=== PATIENT | male | born 1970 | race African-American/Black ===

== ENCOUNTER 2016-11-06 02:33 | Emergency (ER) | payer SELFPAY ==
[~2016-11-06 02:33] MED LIST: GLUCOMTESTSTRIPS XX; LANTUS2P SC; OXYC10TA8 PO; PROT40TA PO; TRAV0.00 EACH EYE; Z.0.LANCETS XX
[2016-11-06 02:41] VITALS: BP 148/92; PULSE 108; RESP 24; O2SAT 96
== END 2016-11-06 03:22 | disposition left against medical advice (07) ==
LOC: NED 02:33
DX: R10.9 Unspecified abdominal pain (principal)
CPT/HCPCS: 99281

== ENCOUNTER 2017-01-10 08:43 | Emergency (ER) | payer SELFPAY ==
[~2017-01-10] VITALS: Ht 157.5 cm; Wt 68.0 kg
[2017-01-10 08:46] VITALS: BP 185/113; PULSE 122; RESP 28; TEMP 98.2; O2SAT 99
[2017-01-10 08:54] VITALS: BP 194/103; PULSE 108; RESP 36; TEMP 98.8; O2SAT 98
[2017-01-10] MEDS ORDERED: INSU1INJ18 SQ (09:05)
[2017-01-10] MEDS ORDERED: PROT40TA PO (09:07)
[2017-01-10] MEDS: LORazepam 2 MG/ML VIAL IV PUSH ONE ×2 (09:30→09:45)
[2017-01-10] MEDS: SODIUM CHLORID 0.9% 500 ML INJ 500 ML IV ONE ×2 (09:30→09:45)
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
[2017-01-10 10:26] LABS: AUTOMATED NEUTROPHIL # 6.3 TH/MM3 (1.8-7.7); BASOPHIL % 0.4 % (0.0-2.0); EOSINOPHIL # 0.1 TH/MM3 (0-0.4); EOSINOPHIL % 1.6 % (0.0-4.0); HEMATOCRIT 46.8 % (39.0-51.0); HEMO FLAGS DIFF FINAL; LYMPH % 19.8 % (9.0-44.0); LYMPHOCYTE # 1.8 TH/MM3 (1.0-4.8); MEAN CELL VOLUME 96.3 FL (80.0-100.0); MEAN CORPUSCULAR HEMOGLOBIN 32.1 PG (27.0-34.0); MEAN CORPUSCULAR HGB CONC 33.4 % (32.0-36.0); MONO % 7.1 % (0.0-8.0); NEUT % 71.1 % (16.0-70.0); PLATELET COUNT 167 TH/MM3 (150-450); RED BLOOD COUNT 4.86 MIL/MM3 (4.50-5.90); RED CELL DISTRIBUTION WIDTH 13.3 % (11.6-17.2); WHITE BLOOD COUNT 8.9 TH/MM3 (4.0-11.0)
[2017-01-10] MEDS ORDERED: LORazepam 2 MG/ML VIAL IV PUSH ONE (10:45)
[2017-01-10 10:52] LABS: ALKALINE PHOSPHATASE 108 U/L (45-117); ALT (GPT) 45 U/L (12-78); ANION GAP 9 MEQ/L (5-15); AST (GOT) 53 U/L (15-37); BICARBONATE 24.8 MEQ/L (21.0-32.0); BLOOD UREA NITROGEN 12 MG/DL (7-18); CHLORIDE 106 MEQ/L (98-107); GLOMERULAR FILTRATION RATE 94 ML/MIN (>89); SODIUM (NA) 140 MEQ/L (136-145); TOTAL BILIRUBIN ADULT 0.6 MG/DL (0.2-1.0)
[2017-01-10 10:53] LABS: POTASSIUM 4.9 MEQ/L (3.5-5.1)
[2017-01-10] MEDS ORDERED: ACETAMINOPHEN/HYDROcodone 325 MG/5 MG TAB PO ONE (11:15)
== END 2017-01-10 14:14 | disposition home or self-care (01) ==
LOC: NEPC 08:43
DX: F41.0 Panic disorder [episodic paroxysmal anxiety] (principal); G89.29 Other chronic pain; M54.5 Low back pain; Z98.1 Arthrodesis status; E11.9 Type 2 diabetes mellitus without complications; I10 Essential (primary) hypertension; Z72.0 Tobacco use
CPT/HCPCS: 80053; 83690; 85025; 96374; 96376; 99283; J2060; J7040

== ENCOUNTER 2017-03-03 11:00 | Inpatient (IN) | payer SELFPAY ==
[~2017-03-03] VITALS: Ht 180.3 cm; Wt 70.0 kg
[~2017-03-03 11:00] MED LIST changes: +INSU1INJ18 SQ; -LANTUS2P SC; -OXYC10TA8 PO
[2017-03-03 11:06] VITALS: BP 168/72; PULSE 110; RESP 28; TEMP 98.8; O2SAT 97
[2017-03-03 11:07] VITALS: PULSE 108; RESP 18; O2SAT 100
[2017-03-03] MEDS ORDERED: SODIUM CHLOR 0.9% 1000 ML INJ 1,000 ML IV SCH (11:07)
[2017-03-03] MEDS ORDERED: OXYC1TAB36 PO (11:13)
[2017-03-03] MEDS ORDERED: SODIUM CHLORIDE 0.9% FLUSH 10 ML FLUSH IV FLUSH PRN ×2 (11:15→17:15)
[2017-03-03] MEDS ORDERED: MORPHINE SULFATE 8 MG/ML INJ IV PUSH ONE ×2 (11:15→17:15)
[2017-03-03] MEDS ORDERED: ONDANSETRON HCL 4 MG/2 ML VIAL IVP ONE (11:15)
[2017-03-03 11:34] LABS: BLOOD GAS VENOUS BASE EXCESS -0.4 mmol/L (-2-2); BLOOD GAS VENOUS HCO3 24 mmol/L (22-26); BLOOD GAS VENOUS O2 CONTENT 12.2 Vol % (9.0-17.0); BLOOD GAS VENOUS O2 HGB SAT 60 % (70-76); BLOOD GAS VENOUS PCO2 45 mmHg (44-48); BLOOD GAS VENOUS PO2 33 mmHg (35-40); BLOOD GAS VENOUS pH 7.36 (7.360-7.400); CRITICAL VALUE NO; DRAW SITE RN; FIO2 21 %; STAT NO; TEMP CORR TO 98.6
[2017-03-03 11:54] LABS: AUTOMATED NEUTROPHIL # 7.5 TH/MM3 (1.8-7.7); BASOPHIL % 0.4 % (0.0-2.0); HEMO FLAGS DIFF FINAL; LYMPH % 13.9 % (9.0-44.0); LYMPHOCYTE # 1.3 TH/MM3 (1.0-4.8); MEAN CELL VOLUME 95.3 FL (80.0-100.0); MEAN CORPUSCULAR HEMOGLOBIN 32.8 PG (27.0-34.0); MEAN CORPUSCULAR HGB CONC 34.4 % (32.0-36.0); MONO % 5.3 % (0.0-8.0); NEUT % 80.4 % (16.0-70.0); PLATELET COUNT 171 TH/MM3 (150-450); RED BLOOD COUNT 4.41 MIL/MM3 (4.50-5.90); RED CELL DISTRIBUTION WIDTH 13.2 % (11.6-17.2); WHITE BLOOD COUNT 9.3 TH/MM3 (4.0-11.0)
--- NOTE | 2017-03-03 12:00 | PD ---
HPI Chief Complaint: Abdominal Pain Time Seen by Provider: 11:07 Travel History International Travel<30 days: No Contact w/Intl Traveler<30days: No Traveled to known affect area: No History of Present Illness HPI Mr. Shelby is a 47-year-old male with a history of chronic back pain chronic pancreatitis and diabetes presents emergency Department with epigastric pain onset 2 days ago gradually worsening associated with some nausea without vomiting. Patient states his sugars been running approximately 250. He has not tried anything prior to arrival. He states he thinks his pancreatitis is flaring up on him. Denies any diarrhea or constipation. States the pain is been nature. He states that the pain in the front does not radiate to his back and causing his chronic back pain to flare up which is causing him to have an anxiety attack. PFSH Past Medical History Anxiety: Yes Cancer: No Cardiovascular Problems: No Diabetes: Yes Patient Takes Glucophage: No Diminished Hearing: No GERD: Yes Glaucoma: Yes Genitourinary: Yes (not emptying bladder AT TIMES) Headaches: Yes Hypertension: Yes Inguinal Hernia: Yes Insomnia: Yes Musculoskeletal: Yes (herniated disk) Respiratory: No Immunizations Current: Yes Pancreatitis: Yes Past Surgical History Abdominal Surgery: Yes (hiatal hernia) Appendectomy: Yes Other Surgery: Yes (pylenitol cyst removal) Social History Alcohol Use: Yes Tobacco Use: Yes (PACK A DAY ) Substance Use: Yes (Marijuana several times per week) Allergies-Medications (Allergen,Severity, Reaction): Coded Allergies: Penicillin (Verified Allergy, Severe, Anaphylaxis, 03/04/17) Phenergan (Verified Allergy, Severe, Anaphylaxis, 03/04/17) Reglan (Verified Allergy, Severe, Anaphylaxis, 03/04/17) Reported Meds & Prescriptions Reported Meds & Active Scripts Active Reported Oxycodone-Acetaminophen 10-325 mg Tab 1 Tab PO Q4H PRN Protonix (Pantoprazole Sodium) 40 Mg Tab 40 Mg PO DAILY PRN Basaglar Kwikpen (Insulin Glargine) 100 Unit/Ml Pen 2 Units SQ DAILY Review of Systems Except as stated in HPI: all other systems reviewed are Neg Physical Exam Narrative GENERAL: [Well-developed well-nourished, hunched over in a stretcher and appears uncomfortable. SKIN: Focused skin assessment warm/dry. HEAD: Atraumatic. Normocephalic. EYES: Pupils equal and round. No scleral icterus. No injection or drainage. ENT: No nasal bleeding or discharge. Mucous membranes pink and moist. NECK: Trachea midline. No JVD. CARDIOVASCULAR: Regular rate and rhythm. No murmur appreciated. RESPIRATORY: No accessory muscle use. Clear to auscultation. Breath sounds equal bilaterally. GASTROINTESTINAL: Abdomen soft, tenderness epigastric area, nondistended. Hepatic and splenic margins not palpable. MUSCULOSKELETAL: No obvious deformities. No clubbing. No cyanosis. No edema. NEUROLOGICAL: Awake and alert. No obvious cranial nerve deficits. Motor grossly within normal limits. Normal speech. PSYCHIATRIC: Appropriate mood and affect; insight and judgment normal. Data Data Last Documented VS Vital Signs Date Time Temp Pulse Resp B/P Pulse Ox O2 Delivery O2 Flow Rate FiO2 03/03/17 12:01 18 03/03/17 11:07 108 100 03/03/17 11:06 98.8 Room Air Orders Complete Blood Count With Diff (03/03/17 11:07) Comprehensive Metabolic Panel (03/03/17 11:07) Lipase (03/03/17 11:07) Lactic Acid (03/03/17 11:07) Iv Access Insert/Monitor (03/03/17 11:07) Ecg Monitoring (03/03/17 11:07) Oximetry (03/03/17 11:07) Ondansetron Inj (Zofran Inj) (03/03/17 11:15) Sodium Chlor 0.9% 1000 Ml Inj (Ns 1000 M (03/03/17 11:07) Sodium Chloride 0.9% Flush (Ns Flush) (03/03/17 11:15) Morphine Inj (Morphine Inj) (03/03/17 11:15) Blood Gas Venous (Vbg) (03/03/17 11:07) Troponin I (03/03/17 11:07) Ct Abd/Pel W Iv Contrast(Rout) (03/03/17 ) Iohexol 350 Inj (Omnipaque 350 Inj) (03/03/17 14:35) Oxycodone-Acetamin 5-325 Mg (Percocet (03/03/17 15:00) Admit Order (Ed Use Only) (03/03/17 ) Morphine Inj (Morphine Inj) (03/03/17 17:15) Labs Laboratory Tests Test 03/03/17 03/03/17 03/03/17 11:23 11:43 11:46 Blood Gas Puncture Site RN Blood Gas Patient Temperature 98.6 Venous Blood pH 7.36 Venous Blood Partial Pressure 45 mmHg CO2 Venous Blood Partial Pressure 33 mmHg O2 Venous Blood HCO3 24 mmol/L Venous Blood Oxygen Saturation 60 % Venous Blood Oxygen Content 12.2 Vol % Venous Blood Base Excess -0.4 mmol/L Blood Gas Inspired Oxygen 21 % Sodium Level 137 MEQ/L Potassium Level 3.9 MEQ/L Chloride Level 101 MEQ/L Carbon Dioxide Level 25.6 MEQ/L Anion Gap 10 MEQ/L Blood Urea Nitrogen 21 MG/DL Creatinine 1.14 MG/DL Estimat Glomerular Filtration 83 ML/MIN Rate Random Glucose 114 MG/DL Calcium Level 9.5 MG/DL Total Bilirubin 0.7 MG/DL Aspartate Amino Transf 57 U/L (AST/SGOT) Alanine Aminotransferase 36 U/L (ALT/SGPT) Alkaline Phosphatase 108 U/L Troponin I LESS THAN 0.02 NG/ML Total Protein 8.0 GM/DL Albumin 4.6 GM/DL Lipase 264 U/L White Blood Count 9.3 TH/MM3 Red Blood Count 4.41 MIL/MM3 Hemoglobin 14.4 GM/DL Hematocrit 42.0 % Mean Corpuscular Volume 95.3 FL Mean Corpuscular Hemoglobin 32.8 PG Mean Corpuscular Hemoglobin 34.4 % Concent Red Cell Distribution Width 13.2 % Platelet Count 171 TH/MM3 Mean Platelet Volume 8.6 FL Neutrophils (%) (Auto) 80.4 % Lymphocytes (%) (Auto) 13.9 % Monocytes (%) (Auto) 5.3 % Eosinophils (%) (Auto) 0.0 % Basophils (%) (Auto) 0.4 % Neutrophils # (Auto) 7.5 TH/MM3 Lymphocytes # (Auto) 1.3 TH/MM3 Monocytes # (Auto) 0.5 TH/MM3 Eosinophils # (Auto) 0.0 TH/MM3 Basophils # (Auto) 0.0 TH/MM3 CBC Comment DIFF FINAL Differential Comment Lactic Acid Level 1.6 mmol/L [facility] Medical Decision Making Medical Screen Exam Complete: Yes Emergency Medical Condition: Yes Differential Diagnosis Pancreatitis, chronic pancreatitis, cholecystitis seems unlikely, acute abdomen highly unlikely, dehydration. Narrative Course Patient 47-year-old male presents emergency room with a history of chronic pancreatitis. Patient's initial labs are reassuring. He was given morphine IV. On revisit he is sleeping soundly arousable and then complains of increased abdominal pain. He was ordered Percocet and took this willingly but still stated he was in pain. CAT scan was pursued and showed Last 24 hours Impressions Abdomen/Pelvis CT 03/03/17 0000 Signed Impressions: Service Date/Time: Friday, March 03, 2017 13:31 - CONCLUSION: 1. The pancreas is stable in appearance with the pancreatic duct at the upper limits of normal. There is no focal mass or inflammatory change. 2. The gallbladder appears unremarkable with no definite gallstones. 3. The bowel gas pattern appears unremarkable. No oral contrast was given limiting the sensitivity. 4. Mild to moderate hepatic steatosis. Quinn Fraire MD Patient was given an additional dose of morphine and recommended for admission for intractable abdominal pain and he is agreeable. Discussed with Dr. Yan for admission who was also agreeable. Diagnosis Primary Impression: Epigastric pain Referrals: Skyla Ovalle MD Disposition: DISCHARGE HOME Condition: Stable Joshua Vega MD March 03, 2017 12:00
[2017-03-03 12:17] LABS: ALT (GPT) 36 U/L (12-78); ANION GAP 10 MEQ/L (5-15); AST (GOT) 57 U/L (15-37); BICARBONATE 25.6 MEQ/L (21.0-32.0); BLOOD UREA NITROGEN 21 MG/DL (7-18); CHLORIDE 101 MEQ/L (98-107); GLOMERULAR FILTRATION RATE 83 ML/MIN (>89); POTASSIUM 3.9 MEQ/L (3.5-5.1); SODIUM (NA) 137 MEQ/L (136-145)
[2017-03-03 12:21] LABS: ALKALINE PHOSPHATASE 108 U/L (45-117); TOTAL BILIRUBIN ADULT 0.7 MG/DL (0.2-1.0)
--- NOTE | 2017-03-03 13:45 | RADRPT ---
EXAM DATE/TIME: 03/03/2017 13:31 1 [place] COMPARISON: CT ABDOMEN & PELVIS W/O CONTRAST, June 19, 2016, 17:05. CT ABDOMEN & PELVIS W CONTRAST, January 05, 2014, 10:36. INDICATIONS : Abdomen pain; posterior. IV CONTRAST: 100 cc Omnipaque 350 (iohexol) IV ORAL CONTRAST: No oral contrast ingested. RADIATION DOSE: 9.96 CTDIvol (mGy) MEDICAL HISTORY : Pancreatitis. SURGICAL HISTORY : Appendectomy. ENCOUNTER: Initial ACUITY: 1 day PAIN SCALE: 5/10 LOCATION: Bilateral abdomen. TECHNIQUE: Volumetric scanning of the abdomen and pelvis was performed. Using automated exposure control and ad justment of the mA and/or kV according to patient size, radiation dose was kept as low as reasonably achievable to obtain optimal diagnostic quality images. FINDINGS: LOWER LUNGS: The visualized lower lungs are clear. LIVER: Homogeneous density without lesion. There is no dilation of the biliary tree. The gallbladder appear s unremarkable with no definite calcified gallstones. There is no wall thickening or inflammatory ariane nge. There is mild to moderate hepatic steatosis. The gallbladder is unremarkable in appearance. SPLEEN: Normal size without lesion. PANCREAS: Normal in size and shape. The pancreatic duct is at the upper limits of normal in size measuring up t o 3 mm area there no calcifications or inflammatory change. KIDNEYS: Normal in size and shape. There is no mass, stone or hydronephrosis. ADRENAL GLANDS: Within normal limits. VASCULAR: There is no aortic aneurysm. BOWEL/MESENTERY: The stomach, small bowel, and colon demonstrate no acute abnormality. There is no free intraperitone al air or fluid. ABDOMINAL WALL: Within normal limits. RETROPERITONEUM: There is no lymphadenopathy. BLADDER: No wall thickening or mass. REPRODUCTIVE: Within normal limits. INGUINAL: There is no lymphadenopathy or hernia. MUSCULOSKELETAL: Within normal limits for patient age. CONCLUSION: 1. The pancreas is stable in appearance with the pancreatic duct at the upper limits of normal. There is no focal mass or inflammatory change. 2. The gallbladder appears unremarkable with no definite gallstones. 3. The bowel gas pattern appears unremarkable. No oral contrast was given limiting the sensitivity. 4. Mild to moderate hepatic steatosis. Quinn Fraire MD on March 03, 2017 at 13:40 Board Certified Radiologist. This report was verified electronically.
[2017-03-03] MEDS ORDERED: IOHEXOL 350 MG/ML 10 ML VIAL (for RAD DIAG) IV ONE (14:35)
[2017-03-03] MEDS ORDERED: oxyCODONE/ACETAMINOPHEN 5 MG/325 MG TAB PO ONE (15:00)
[2017-03-03] MEDS ORDERED: HYDROmorphone HCL PF 1 MG/ML VIAL IV PRN (17:15)
[2017-03-03] MEDS ORDERED: ACETAMINOPHEN 325 MG TAB PO PRN ×2 (17:15)
[2017-03-03] MEDS ORDERED: ONDANSETRON HCL 4 MG/2 ML VIAL IVP PRN (17:15)
[2017-03-03] MEDS ORDERED: PANTOPRAZOLE SOD 40 MG DELAYED RELEASE TAB PO PRN (17:15)
[2017-03-03] MEDS ORDERED: NALOXONE HCL 0.4 MG/ML AMP IV PRN (17:15)
[2017-03-03] MEDS ORDERED: LORazepam 2 MG/ML VIAL IV PUSH PRN (17:30)
[2017-03-03] MEDS: SODIUM CHLOR 0.9% 1000 ML INJ 1,000 ML IV SCH ×2 (17:32→20:04)
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
[2017-03-03] MEDS ORDERED: ENOXAPARIN SODIUM 40 MG/0.4 ML SYRINGE SQ SCH (18:00)
[2017-03-03] MEDS ORDERED: DEXTROSE 50% IN WATER 50 ML VIAL(D50) IV PUSH PRN (18:15)
[2017-03-03] MEDS ORDERED: GLUCAGON 1 MG/ML VIAL OTHER PRN (18:15)
[2017-03-03 19:54] VITALS: BP 133/69; PULSE 74; RESP 18; TEMP 98.1; O2SAT 98
[2017-03-03] MEDS: SODIUM CHLORIDE 0.9% FLUSH 10 ML FLUSH IV FLUSH SCH (20:04)
[2017-03-03] MEDS: HYDROmorphone HCL PF 1 MG/ML VIAL IV PRN ×2 (20:04→23:48)
[2017-03-03] MEDS: INSULIN ASPART SUPPLEMENTAL SCALE SQ SCH (21:00)
[2017-03-03 23:57] VITALS: BP 135/77; PULSE 64; RESP 18; TEMP 98.7; O2SAT 99
[2017-03-04] MEDS: SODIUM CHLOR 0.9% 1000 ML INJ 1,000 ML IV SCH (02:57)
[2017-03-04] MEDS: HYDROmorphone HCL PF 1 MG/ML VIAL IV PRN ×2 (02:57→08:23)
[2017-03-04 03:00] VITALS: BP 123/80; PULSE 64; RESP 18; TEMP 98.7; O2SAT 98
[2017-03-04] MEDS: INSULIN ASPART SUPPLEMENTAL SCALE SQ SCH (05:53)
[2017-03-04 07:11] LABS: AUTOMATED NEUTROPHIL # 2.9 TH/MM3 (1.8-7.7); BASOPHIL % 0.3 % (0.0-2.0); EOSINOPHIL % 0.8 % (0.0-4.0); HEMATOCRIT 38.8 % (39.0-51.0); HEMO FLAGS DIFF FINAL; LYMPH % 37.4 % (9.0-44.0); MEAN CELL VOLUME 95.9 FL (80.0-100.0); MEAN CORPUSCULAR HEMOGLOBIN 31.5 PG (27.0-34.0); MEAN CORPUSCULAR HGB CONC 32.9 % (32.0-36.0); MONO % 8.4 % (0.0-8.0); NEUT % 53.1 % (16.0-70.0); PLATELET COUNT 134 TH/MM3 (150-450); RED BLOOD COUNT 4.04 MIL/MM3 (4.50-5.90); RED CELL DISTRIBUTION WIDTH 13.2 % (11.6-17.2); WHITE BLOOD COUNT 5.4 TH/MM3 (4.0-11.0)
[2017-03-04 07:25] LABS: RHEUMATOID FACTOR TRIGGER LESS THAN 10.0 IU/ML (0.0-14.9)
[2017-03-04 07:34] LABS: ALKALINE PHOSPHATASE 80 U/L (45-117); ALT (GPT) 28 U/L (12-78); ANION GAP 6 MEQ/L (5-15); AST (GOT) 44 U/L (15-37); BICARBONATE 27.7 MEQ/L (21.0-32.0); BLOOD UREA NITROGEN 12 MG/DL (7-18); CHLORIDE 104 MEQ/L (98-107); GLOMERULAR FILTRATION RATE 112 ML/MIN (>89); POTASSIUM 3.6 MEQ/L (3.5-5.1); SODIUM (NA) 138 MEQ/L (136-145); TOTAL BILIRUBIN ADULT 0.6 MG/DL (0.2-1.0)
[2017-03-04 07:51] VITALS: BP 142/75; PULSE 53; RESP 18; TEMP 98; O2SAT 98
[2017-03-04 08:53] VITALS: RESP 16
[2017-03-04] MEDS ORDERED: PANTOPRAZOLE SOD 40 MG DELAYED RELEASE TAB PO SCH (09:00)
[2017-03-04] MEDS: SODIUM CHLORIDE 0.9% FLUSH 10 ML FLUSH IV FLUSH SCH (09:00)
--- NOTE | 2017-03-04 10:55 | PD.AMA ---
Against Medical Advice Note Diagnosis: (1) Pancreatitis Discharge Disposition: Against Medical Advice Pt Condition on Discharge: Fair AMA Statement Patient Luis Carlos Shelby has decided to leave the hospital against medical advice. This patient has the capacity to refuse care and understands the risks of leaving, including permanent disability and/or , and has had an opportunity to ask questions about his condition. The patient has been informed that he may return for care at any time, and follow up has been arranged/ advised. Hank Yan MD March 04, 2017 10:55
--- NOTE | 2017-03-04 11:20 | EKG ---
Date Performed: 03/03/2017 Time Performed: 17:09:57 PTAGE: 47 years EKG: ATRIAL FLUTTER/TACHYCARDIA INDETERMINATE AXIS ABNORMAL RHYTHM ECG PREVIOUS TRACING : 10/15/2016 05.08 DOCTOR: Bulmaro Squires Interpretating Date/Time 03/04/2017 11:16:08
== END 2017-03-04 11:04 | disposition home or self-care (01) | DRG 440 ==
LOC: NEPE 11:00 → NEDA 17:08 → NEPHCDU 19:41 → OBSVTOIN 03-04 08:20
PROVIDERS: ADMIT Hospitalist; ATTEND Hospitalist
DX: K85.90 Acute pancreatitis without necrosis or infection, unspecified (principal); K86.1 Other chronic pancreatitis; M41.9 Scoliosis, unspecified; I10 Essential (primary) hypertension; F17.210 Nicotine dependence, cigarettes, uncomplicated; G47.00 Insomnia, unspecified; K40.90 Unilateral inguinal hernia, without obstruction or gangrene, not specified as recurrent; H40.9 Unspecified glaucoma; K21.9 Gastro-esophageal reflux disease without esophagitis; E11.9 Type 2 diabetes mellitus without complications; Z79.4 Long term (current) use of insulin; Z88.0 Allergy status to penicillin; Z88.8 Allergy status to other drugs, medicaments and biological substances; F41.1 Generalized anxiety disorder; G89.29 Other chronic pain; E78.5 Hyperlipidemia, unspecified; F41.0 Panic disorder [episodic paroxysmal anxiety]; F12.90 Cannabis use, unspecified, uncomplicated; Z82.49 Family history of ischemic heart disease and other diseases of the circulatory system; Z82.3 Family history of stroke; Z83.3 Family history of diabetes mellitus
CPT/HCPCS: 74177; 80053; 82805; 82948; 83605; 83690; 84484; 85025; 86038; 86430; 93005; 96374; 96375; G0378; J1170; J2270; J2405; J7030; Q9967

== ENCOUNTER 2017-03-04 12:40 | Inpatient (IN) | payer SELFPAY ==
[~2017-03-04] VITALS: Ht 177.8 cm; Wt 67.6 kg
[~2017-03-04 12:40] MED LIST changes: -GLUCOMTESTSTRIPS XX; +OXYC1TAB36 PO; -TRAV0.00 EACH EYE; -Z.0.LANCETS XX
[2017-03-04 12:41] VITALS: BP 169/103; PULSE 97; RESP 20; TEMP 97.8; O2SAT 99
[2017-03-04] MEDS ORDERED: ONDANSETRON HCL 4 MG/2 ML VIAL IVP ONE (13:00)
[2017-03-04] MEDS ORDERED: MORPHINE SULFATE 4 MG/ML INJ IV PUSH ONE (13:00)
[2017-03-04] MEDS ORDERED: SODIUM CHLORIDE 0.9% FLUSH 10 ML FLUSH IV FLUSH PRN ×2 (13:00→13:15)
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
[2017-03-04 13:10] VITALS: RESP 19; O2SAT 98
[2017-03-04] MEDS ORDERED: ACETAMINOPHEN 325 MG TAB PO PRN ×2 (13:15)
[2017-03-04] MEDS ORDERED: HYDROmorphone HCL PF 1 MG/ML VIAL IV PRN (13:15)
[2017-03-04] MEDS ORDERED: NALOXONE HCL 0.4 MG/ML AMP IV PRN (13:15)
[2017-03-04] MEDS ORDERED: LORazepam 2 MG/ML VIAL IV PUSH PRN (13:30)
[2017-03-04] MEDS: SODIUM CHLOR 0.9% 1000 ML INJ 1,000 ML IV SCH ×3 (13:41→23:47)
[2017-03-04] MEDS: ENOXAPARIN SODIUM 40 MG/0.4 ML SYRINGE SQ SCH (13:42)
[2017-03-04] MEDS ORDERED: ONDANSETRON HCL 4 MG/2 ML VIAL IVP PRN (14:00)
[2017-03-04] MEDS ORDERED: DIAZEPAM 5 MG TAB PO PRN (15:00)
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
[2017-03-04] MEDS ORDERED: GLUCAGON 1 MG/ML VIAL OTHER PRN (15:45)
[2017-03-04] MEDS ORDERED: DEXTROSE 50% IN WATER 50 ML VIAL(D50) IV PUSH PRN (15:45)
[2017-03-04 16:00] VITALS: BP 129/80; PULSE 62; RESP 16; TEMP 98.7; O2SAT 95
[2017-03-04] MEDS: INSULIN ASPART SUPPLEMENTAL SCALE SQ SCH ×2 (16:00→20:01)
[2017-03-04] MEDS: HYDROmorphone HCL PF 1 MG/ML VIAL IV PRN ×3 (16:27→23:47)
[2017-03-04 20:00] VITALS: BP 156/88; PULSE 66; RESP 20; TEMP 98.8; O2SAT 98
[2017-03-04] MEDS: SODIUM CHLORIDE 0.9% FLUSH 10 ML FLUSH IV FLUSH SCH (20:01)
[2017-03-05] MEDS: HYDROmorphone HCL PF 1 MG/ML VIAL IV PRN ×6 (03:37→23:11)
[2017-03-05 06:06] LABS: ALKALINE PHOSPHATASE 76 U/L (45-117); ALT (GPT) 29 U/L (12-78); ANION GAP 7 MEQ/L (5-15); AST (GOT) 40 U/L (15-37); BICARBONATE 26.8 MEQ/L (21.0-32.0); BLOOD UREA NITROGEN 7 MG/DL (7-18); CHLORIDE 105 MEQ/L (98-107); GLOMERULAR FILTRATION RATE 119 ML/MIN (>89); POTASSIUM 3.5 MEQ/L (3.5-5.1); SODIUM (NA) 139 MEQ/L (136-145); TOTAL BILIRUBIN ADULT 0.5 MG/DL (0.2-1.0)
[2017-03-05] MEDS: INSULIN ASPART SUPPLEMENTAL SCALE SQ SCH ×4 (06:17→19:56)
[2017-03-05 07:04] LABS: AUTOMATED NEUTROPHIL # 2.2 TH/MM3 (1.8-7.7); BASOPHIL % 0.9 % (0.0-2.0); EOSINOPHIL # 0.1 TH/MM3 (0-0.4); EOSINOPHIL % 1.1 % (0.0-4.0); HEMATOCRIT 38.8 % (39.0-51.0); HEMO FLAGS DIFF FINAL; LYMPH % 40.2 % (9.0-44.0); LYMPHOCYTE # 1.9 TH/MM3 (1.0-4.8); MEAN CELL VOLUME 95.7 FL (80.0-100.0); MEAN CORPUSCULAR HEMOGLOBIN 31.7 PG (27.0-34.0); MEAN CORPUSCULAR HGB CONC 33.1 % (32.0-36.0); MONO % 9.9 % (0.0-8.0); NEUT % 47.9 % (16.0-70.0); PLATELET COUNT 117 TH/MM3 (150-450); RED BLOOD COUNT 4.06 MIL/MM3 (4.50-5.90); RED CELL DISTRIBUTION WIDTH 13.1 % (11.6-17.2); WHITE BLOOD COUNT 4.7 TH/MM3 (4.0-11.0)
[2017-03-05 08:00] VITALS: BP 139/67; PULSE 69; RESP 16; TEMP 96.9; O2SAT 95
[2017-03-05] MEDS: SODIUM CHLOR 0.9% 1000 ML INJ 1,000 ML IV SCH ×2 (09:55→21:23)
[2017-03-05] MEDS: SODIUM CHLORIDE 0.9% FLUSH 10 ML FLUSH IV FLUSH SCH ×2 (09:56→19:56)
--- NOTE | 2017-03-05 10:05 | HHI.PR ---
Subjective Remarks Follow-up acute on chronic pancreatitis 03/05/17-patient seen and examined, continue to complain of abdominal mid epigastric pain with radiation to his back. No nausea and vomiting. Currently afebrile Objective Vitals Vital Signs Date Time Temp Pulse Resp B/P Pulse Ox O2 Delivery O2 Flow Rate FiO2 03/05/17 08:00 96.9 69 16 139/67 95 03/04/17 20:00 98.8 66 20 156/88 98 03/04/17 16:00 98.7 62 16 129/80 95 03/04/17 13:10 19 98 Room Air 03/04/17 12:41 97.8 97 20 169/103 99 I/O 03/04/17 03/04/17 03/04/17 03/05/17 03/05/17 03/05/17 07:00 15:00 23:00 07:00 15:00 23:00 Intake Total 1283 ml 1254 ml Output Total 500 ml 700 ml Balance 783 ml 554 ml Intake Oral 480 ml 480 ml IV Total 803 ml 774 ml Output Urine Total 500 ml 700 ml # Bowel Movements 0 0 Result Diagram: 03/05/17 0508 03/05/17 0508 Objective Remarks GENERAL: NAD SKIN: Warm and dry. HEAD: Normocephalic. EYES: No scleral icterus. No injection or drainage. NECK: Supple, trachea midline. No JVD or lymphadenopathy. CARDIOVASCULAR: Regular rate and rhythm without murmurs, gallops, or rubs. RESPIRATORY: Breath sounds equal bilaterally. No accessory muscle use. GASTROINTESTINAL: Abdomen soft, mildly tender mid epigastric, nondistended. MUSCULOSKELETAL: No cyanosis, or edema. BACK: Nontender without obvious deformity. No CVA tenderness. A/P Problem List: (1) Acute on chronic pancreatitis ICD Code: K85.90 Status: Acute (2) Diabetes ICD Code: E11.9 Status: Chronic (3) Acute pancreatitis ICD Code: K85.9 Status: Acute (4) Chronic back pain ICD Code: M54.9 Status: Chronic (5) Panic disorder ICD Code: F41.0 Status: Chronic (6) Hyperlipidemia ICD Code: E78.5 Status: Acute (7) Hypertension ICD Code: I10 Status: Acute Assessment and Plan 47-year-old man with Acute on chronic pancreatitis Lipase 1353 (03/04)----->160 (03/05) and monitor lipase level Continue with IV fluid hydration, when necessary pain medication MRCP to rule out annular pancreas Consider HIDA if enzymes do not improve Start pancreatic replacement enzyme and continue with low-fat diet as well as PPI DM2 Continue to hold basal insulin, currently on Insulin Sliding Scale with fingerstick blood glucose monitoring Anxiety PRN Ativan Hyperlipidemia Start Lipitor 10 mg at bedtime Hypertension Start lisinopril 10 mg daily Glaucoma Scoliosis Chronic and continue to monitor Denys Martines MD March 05, 2017 10:05
[2017-03-05] MEDS: LISINOPRIL 10 MG TAB PO SCH (11:31)
[2017-03-05 12:00] VITALS: BP 170/79; PULSE 52; RESP 17; TEMP 97.2; O2SAT 94
--- NOTE | 2017-03-05 13:32 | RADRPT ---
EXAM DATE/TIME: 03/05/2017 12:29 [place] COMPARISON: CT ABDOMEN & PELVIS W CONTRAST, March 03, 2017, 13:31. INDICATIONS : Upper abdominal pain. MEDICAL HISTORY : Hypertension. Diabetes mellitus type 2. SURGICAL HISTORY : Appendectomy. Hernia, lumbar surgery, jugular repair ENCOUNTER: Subsequent ACUITY: 4-6 days PAIN SCORE: 3/10 LOCATION: upper quadrant abdomen TECHNIQUE: Multiplanar, multisequence magnetic resonance imaging of the abdomen was performed. High-resolution 3D dataset was utilized to reconstruct maximum-intensity projection (MIP) images. FINDINGS: INTRAHEPATIC BILE DUCTS: Within normal limits. No significant anatomical variant is present. EXTRAHEPATIC BILE DUCTS: The common bile duct measures 2-3 mm. No stone or filling defect is identified. GALLBLADDER: No stones, wall thickening, or pericholecystic fluid. LIVER: Mild hepatic steatosis. No concerning liver lesion is identified on this non-contrast exam. PANCREAS: The main pancreatic duct is normal in size. There is no significant anatomical variant. Signal inte nsity is within normal limits. No mass is visualized on this non-contrast exam. OTHER: The remaining visualized structures demonstrate no acute abnormality on this non-contrast exam. Extra renal pelvis of the left kidney. CONCLUSION: 1. Mild hepatic steatosis. 2. No intra-or extrahepatic biliary ductal dilatation. 3. No evidence for cholelithiasis. Denys Hernandez MD on March 05, 2017 at 13:23 Board Certified Radiologist. This report was verified electronically.
[2017-03-05] MEDS: ENOXAPARIN SODIUM 40 MG/0.4 ML SYRINGE SQ SCH (15:17)
[2017-03-05] MEDS: LIPASE/PROTEASE/AMYLASE (12,000/38,000/60,000) CAP PO SCH ×2 (15:17→17:47)
[2017-03-05 16:00] VITALS: BP 169/76; PULSE 64; RESP 17; TEMP 97; O2SAT 96
[2017-03-05 20:00] VITALS: BP 162/88; PULSE 61; RESP 18; TEMP 98.7; O2SAT 95
[2017-03-05] MEDS ORDERED: ATORVASTATIN 10 MG TAB PO SCH (21:00)
[2017-03-06] VITALS: BP 123/64; PULSE 71; RESP 18; TEMP 97.3; O2SAT 96
[2017-03-06] MEDS: SODIUM CHLOR 0.9% 1000 ML INJ 1,000 ML IV SCH ×2 (05:00→12:57)
[2017-03-06] MEDS: HYDROmorphone HCL PF 1 MG/ML VIAL IV PRN ×4 (05:10→13:59)
[2017-03-06] MEDS: INSULIN ASPART SUPPLEMENTAL SCALE SQ SCH ×2 (06:08→11:00)
[2017-03-06 08:00] VITALS: BP 132/80; PULSE 81; RESP 18; TEMP 97.3; O2SAT 99
[2017-03-06] MEDS: LIPASE/PROTEASE/AMYLASE (12,000/38,000/60,000) CAP PO SCH ×2 (08:20→12:56)
[2017-03-06] MEDS: LISINOPRIL 10 MG TAB PO SCH (08:20)
[2017-03-06] MEDS: SODIUM CHLORIDE 0.9% FLUSH 10 ML FLUSH IV FLUSH SCH (08:24)
[2017-03-06 12:00] VITALS: BP 144/92; PULSE 85; RESP 19; TEMP 97.2; O2SAT 94
--- NOTE | 2017-03-06 12:47 | HHI.PR ---
Subjective Remarks Follow-up acute on chronic pancreatitis 03/05/17-patient seen and examined, continue to complain of abdominal mid epigastric pain with radiation to his back. No nausea and vomiting. Currently afebrile 03/06/17-patient seen and examined; no abdominal pain; no n/v Objective Vitals Vital Signs Date Time Temp Pulse Resp B/P Pulse Ox O2 Delivery O2 Flow Rate FiO2 03/06/17 12:00 97.2 85 19 144/92 94 03/06/17 08:54 18 03/06/17 08:00 97.3 81 18 132/80 99 03/06/17 00:00 97.3 71 18 123/64 96 03/05/17 20:00 98.7 61 18 162/88 95 03/05/17 16:00 97.0 64 17 169/76 96 I/O 03/05/17 03/05/17 03/05/17 03/06/17 03/06/17 03/06/17 06:59 14:59 22:59 06:59 14:59 22:59 Intake Total 1254 ml 0 ml 1256 ml 775 ml Output Total 700 ml 1200 ml 250 ml Balance 554 ml -1200 ml 1256 ml 525 ml Intake Oral 480 ml 0 ml 240 ml 480 ml IV Total 774 ml 1016 ml 295 ml Output Urine Total 700 ml 1200 ml 250 ml # Voids 1 # Bowel Movements 0 0 0 0 Result Diagram: 03/05/17 0508 03/05/17 0508 Imaging Last Impressions Cholangiopancreatography MRI 03/05/17 0000 Signed Impressions: Service Date/Time: Sunday, March 05, 2017 12:29 - CONCLUSION: 1. Mild hepatic steatosis. 2. No intra-or extrahepatic biliary ductal dilatation. 3. No evidence for cholelithiasis. Denys Hernandez MD Objective Remarks GENERAL: NAD SKIN: Warm and dry. HEAD: Normocephalic. EYES: No scleral icterus. No injection or drainage. NECK: Supple, trachea midline. No JVD or lymphadenopathy. CARDIOVASCULAR: Regular rate and rhythm without murmurs, gallops, or rubs. RESPIRATORY: Breath sounds equal bilaterally. No accessory muscle use. GASTROINTESTINAL: Abdomen soft, mildly tender mid epigastric, nondistended. MUSCULOSKELETAL: No cyanosis, or edema. BACK: Nontender without obvious deformity. No CVA tenderness. Procedures none A/P Problem List: (1) Acute on chronic pancreatitis ICD Code: K85.90 Status: Acute (2) Diabetes ICD Code: E11.9 Status: Chronic (3) Acute pancreatitis ICD Code: K85.9 Status: Acute (4) Chronic back pain ICD Code: M54.9 Status: Chronic (5) Panic disorder ICD Code: F41.0 Status: Chronic (6) Hyperlipidemia ICD Code: E78.5 Status: Acute (7) Hypertension ICD Code: I10 Status: Acute Assessment and Plan 47-year-old man with Acute on chronic pancreatitis Lipase 1353 (03/04)----->160 (03/05) and monitor lipase level Continue with IV fluid hydration, when necessary pain medication MRCP with Mild hepatic steatosis. 2. No intra-or extrahepatic biliary ductal dilatation. 3. No evidence for cholelithiasis. Consider HIDA if enzymes do not improve Continue pancreatic replacement enzyme and continue with low-fat diet as well as PPI DM2 Continue to hold basal insulin, currently on Insulin Sliding Scale with fingerstick blood glucose monitoring Anxiety PRN Ativan Hyperlipidemia Continue Lipitor 10 mg at bedtime Hypertension Continue lisinopril 10 mg daily Glaucoma Scoliosis Chronic and continue to monitor Denys Martines MD March 06, 2017 12:47
[2017-03-06] MEDS ORDERED: LIPI10TA PO (12:49)
[2017-03-06] MEDS ORDERED: CREON12 PO (12:49)
[2017-03-06] MEDS ORDERED: LISI10TA3 PO (12:49)
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
[2017-03-06] MEDS: ENOXAPARIN SODIUM 40 MG/0.4 ML SYRINGE SQ SCH (13:58)
== END 2017-03-06 14:48 | disposition home or self-care (01) | DRG 440 ==
LOC: NEPE 12:40 → NEDA 13:14 → N07A 14:32
PROVIDERS: ADMIT Hospitalist; ATTEND Hospitalist
DX: K85.90 Acute pancreatitis without necrosis or infection, unspecified (principal); M41.9 Scoliosis, unspecified; I10 Essential (primary) hypertension; E11.9 Type 2 diabetes mellitus without complications; K21.9 Gastro-esophageal reflux disease without esophagitis; H40.9 Unspecified glaucoma; G47.00 Insomnia, unspecified; F17.210 Nicotine dependence, cigarettes, uncomplicated; F12.90 Cannabis use, unspecified, uncomplicated; F41.0 Panic disorder [episodic paroxysmal anxiety]; E78.5 Hyperlipidemia, unspecified; K86.1 Other chronic pancreatitis; G89.29 Other chronic pain; Z79.4 Long term (current) use of insulin
CPT/HCPCS: 74181; 76377; 76937; 80053; 82948; 83690; 85025; 96374; J1170; J1650; J1815; J2270; J2405; J7030

== ENCOUNTER 2017-05-13 09:05 | Emergency (ER) | payer SELFPAY ==
[~2017-05-13] VITALS: Ht 175.3 cm; Wt 68.0 kg
[~2017-05-13 09:05] MED LIST changes: +CREON12 PO; +LIPI10TA PO; +LISI10TA3 PO
[2017-05-13 09:07] VITALS: BP 190/99; PULSE 114; RESP 26; TEMP 98; O2SAT 98
[2017-05-13] MEDS ORDERED: LANTUS2P SQ (09:32)
--- NOTE | 2017-05-13 09:38 | PD ---
HPI Chief Complaint: Abdominal Pain Time Seen by Provider: 09:38 Travel History International Travel<30 days: No Contact w/Intl Traveler<30days: No Traveled to known affect area: No History of Present Illness HPI 47-year-old male came to the emergency room with history of abdominal pain and vomiting. He told me "it is his pancreas". Patient says the pain started yesterday. Denied any alcohol. He told me that he does not drink alcohol but he does have history of pancreatitis. He looked uncomfortable. Patient is tachycardic in triage and is tachypneic although the tachypnea seems more like hyperventilation. He was curled up into a position rocking back and forth and occasionally jumping. Upon asking patient said this pain made him do that. Patient denies doing any street drugs. He is on pain medication for his back surgery. PFSH Past Medical History Narrative Medical List of his past medical, surgical, social and family history is reviewed from the nursing note. Anxiety: Yes Cancer: No Cardiovascular Problems: Yes Diabetes: Yes Patient Takes Glucophage: No Diminished Hearing: No GERD: Yes Glaucoma: Yes Genitourinary: No Headaches: Yes Hypertension: Yes Inguinal Hernia: Yes Insomnia: Yes Medical other: Yes (pancreatitis hx) Musculoskeletal: Yes (herniated disk) Respiratory: No Immunizations Current: Yes Pancreatitis: Yes Tetanus Vaccination: > 5 Years Influenza Vaccination: Yes Past Surgical History Abdominal Surgery: Yes (hiatal hernia) Appendectomy: Yes Other Surgery: Yes (pylenitol cyst removal) Social History Alcohol Use: No (pt denies) Tobacco Use: Yes (PACK A DAY ) Substance Use: Yes (weed) Allergies-Medications (Allergen,Severity, Reaction): Coded Allergies: Penicillin (Verified Allergy, Severe, Anaphylaxis, 05/15/17) Phenergan (Verified Allergy, Severe, Anaphylaxis, 05/15/17) Reglan (Verified Allergy, Severe, Anaphylaxis, 05/15/17) Comments List of his allergies reviewed from the nursing note. Reported Meds & Prescriptions Reported Meds & Active Scripts Active Omeprazole 20 Mg Tab 20 Mg PO DAILY Ibuprofen 600 Mg Tab 600 Mg PO Q6H PRN Lipitor (Atorvastatin Calcium) 10 Mg Tab 10 Mg PO HS Reported Lantus Inj (Insulin Glargine) 1,000 Unit/10 Ml Vial 5 Units SQ BID Narrative Medication List of his home medications reviewed from the nursing note. Review of Systems Except as stated in HPI: all other systems reviewed are Neg Physical Exam Narrative GENERAL: Awake, alert, anxious, significant distress SKIN: Focused skin assessment warm/dry. HEAD: Atraumatic. Normocephalic. EYES: Pupils equal and round. No scleral icterus. No injection or drainage. ENT: No nasal bleeding or discharge. Mucous membranes pink and moist. NECK: Trachea midline. No JVD. CARDIOVASCULAR: Regular rate and rhythm. No murmur appreciated. RESPIRATORY: No accessory muscle use. Clear to auscultation. Breath sounds equal bilaterally. GASTROINTESTINAL: Abdomen soft, non-tender, nondistended. Hepatic and splenic margins not palpable. MUSCULOSKELETAL: No obvious deformities. No clubbing. No cyanosis. No edema. NEUROLOGICAL: Awake and alert. No obvious cranial nerve deficits. Motor grossly within normal limits. Normal speech. PSYCHIATRIC: Appropriate mood and affect; insight and judgment normal. Data Data Last Documented VS Orders Complete Blood Count With Diff (05/13/17 09:40) Comprehensive Metabolic Panel (05/13/17 09:40) Lipase (05/13/17 09:40) Urinalysis - C+S If Indicated (05/13/17 09:40) Iv Access Insert/Monitor (05/13/17 09:40) Ecg Monitoring (05/13/17 09:40) Oximetry (05/13/17 09:40) Sodium Chlor 0.9% 1000 Ml Inj (Ns 1000 M (05/13/17 09:40) Sodium Chloride 0.9% Flush (Ns Flush) (05/13/17 09:45) Morphine Inj (Morphine Inj) (05/13/17 09:45) Sodium Chlor 0.9% 1000 Ml Inj (Ns 1000 M (05/13/17 10:30) Morphine Inj (Morphine Inj) (05/13/17 10:30) Alprazolam (Xanax) (05/13/17 13:15) Labs MDM Medical Decision Making Medical Screen Exam Complete: Yes Emergency Medical Condition: Yes Medical Record Reviewed: Yes Differential Diagnosis Acute pancreatitis, acute gastritis, dehydration, DKA Narrative Course 10:08 AM awaiting for the blood test results to come back. Patient is given IV fluid and medicated for pain. His pain is out of proportion and I'm curious to see the blood test results. 11:18 AM lipase level is mildly elevated. Patient has been medicated for the second time. He did not vomit anymore while he was in the room. He'll be discharged home with instructions. Procedures EKG Prior to Arrival: No Diagnosis Primary Impression: Acute on chronic pancreatitis Referrals: Primary Care Physician Additional Instructions: Try to keep herself hydrated. Take your pain medications that you have at home as needed for the pain. Take clear liquid diet for the next 48 hours which includes apple juice, Jell-O, clear broth etc. Return to the ER if the condition worsens or any other new concerns. Follow-up with your primary care. Med/Other Pt SpecificInfo: No Change to Meds Disposition: 01 DISCHARGE HOME Condition: Stable Bao Frederick MD May 13, 2017 09:38 Lymphocytes (%) (Auto) 17.6 % Monocytes (%) (Auto) 5.2 % Eosinophils (%) (Auto) 0.5 % Basophils (%) (Auto) 0.3 % Neutrophils # (Auto) 7.0 TH/MM3 Lymphocytes # (Auto) 1.6 TH/MM3 Monocytes # (Auto) 0.5 TH/MM3 Eosinophils # (Auto) 0.0 TH/MM3 Basophils # (Auto) 0.0 TH/MM3 CBC Comment DIFF FINAL Differential Comment Sodium Level 142 MEQ/L Potassium Level 4.6 MEQ/L Chloride Level 107 MEQ/L Carbon Dioxide Level 26.9 MEQ/L Anion Gap 8 MEQ/L Blood Urea Nitrogen 15 MG/DL Creatinine 1.03 MG/DL Estimat Glomerular Filtration 93 ML/MIN Rate Random Glucose 124 MG/DL Calcium Level 9.6 MG/DL Total Bilirubin 0.5 MG/DL Aspartate Amino Transf 28 U/L (AST/SGOT) Alanine Aminotransferase 23 U/L (ALT/SGPT) Alkaline Phosphatase 87 U/L Total Protein 7.9 GM/DL Albumin 4.3 GM/DL Lipase 669 U/L [facility] Medical Decision Making Medical Screen Exam Complete: Yes Emergency Medical Condition: Yes Medical Record Reviewed: Yes Differential Diagnosis Acute pancreatitis, acute gastritis, dehydration, DKA Narrative Course 10:08 AM awaiting for the blood test results to come back. Patient is given IV fluid and medicated for pain. His pain is out of proportion and I'm curious to see the blood test results. 11:18 AM lipase level is mildly elevated. Patient has been medicated for the second time. He did not vomit anymore while he was in the room. He'll be discharged home with instructions. Procedures EKG Prior to Arrival: No Diagnosis Primary Impression: Acute on chronic pancreatitis Referrals: Primary Care Physician Additional Instructions: Try to keep herself hydrated. Take your pain medications that you have at home as needed for the pain. Take clear liquid diet for the next 48 hours which includes apple juice, Jell-O, clear broth etc. Return to the ER if the condition worsens or any other new concerns. Follow-up with your primary care. Med/Other Pt SpecificInfo: No Change to Meds Disposition: 01 DISCHARGE HOME Condition: Stable Bao Frederick MD May 13, 2017 09:38
[2017-05-13] MEDS ORDERED: SODIUM CHLOR 0.9% 1000 ML INJ 1,000 ML IV SCH (09:40)
[2017-05-13] MEDS ORDERED: MORPHINE SULFATE 8 MG/ML INJ IV PUSH ONE ×2 (09:45→10:30)
[2017-05-13] MEDS ORDERED: SODIUM CHLORIDE 0.9% FLUSH 10 ML FLUSH IV FLUSH PRN (09:45)
[2017-05-13 10:00] VITALS: RESP 20; O2SAT 99
[2017-05-13 10:05] LABS: BASOPHIL % 0.3 % (0.0-2.0); EOSINOPHIL % 0.5 % (0.0-4.0); HEMATOCRIT 44.2 % (39.0-51.0); HEMO FLAGS DIFF FINAL; LYMPH % 17.6 % (9.0-44.0); LYMPHOCYTE # 1.6 TH/MM3 (1.0-4.8); MEAN CELL VOLUME 95.6 FL (80.0-100.0); MEAN CORPUSCULAR HEMOGLOBIN 32.8 PG (27.0-34.0); MEAN CORPUSCULAR HGB CONC 34.4 % (32.0-36.0); MONO % 5.2 % (0.0-8.0); NEUT % 76.4 % (16.0-70.0); PLATELET COUNT 157 TH/MM3 (150-450); RED BLOOD COUNT 4.62 MIL/MM3 (4.50-5.90); RED CELL DISTRIBUTION WIDTH 13.2 % (11.6-17.2); WHITE BLOOD COUNT 9.2 TH/MM3 (4.0-11.0)
[2017-05-13 10:20] LABS: ALKALINE PHOSPHATASE 87 U/L (45-117); TOTAL BILIRUBIN ADULT 0.5 MG/DL (0.2-1.0)
[2017-05-13 10:21] LABS: ALT (GPT) 23 U/L (12-78); ANION GAP 8 MEQ/L (5-15); AST (GOT) 28 U/L (15-37); BICARBONATE 26.9 MEQ/L (21.0-32.0); BLOOD UREA NITROGEN 15 MG/DL (7-18); CHLORIDE 107 MEQ/L (98-107); GLOMERULAR FILTRATION RATE 93 ML/MIN (>89); SODIUM (NA) 142 MEQ/L (136-145)
[2017-05-13 10:22] LABS: POTASSIUM 4.6 MEQ/L (3.5-5.1)
[2017-05-13] MEDS ORDERED: SODIUM CHLOR 0.9% 1000 ML INJ 1,000 ML IV ONE (10:30)
[2017-05-13 10:46] VITALS: BP 179/82; PULSE 69; RESP 20; TEMP 98.1; O2SAT 99
[2017-05-13 11:08] VITALS: BP 142/78; PULSE 74; RESP 18; O2SAT 98
[2017-05-13 12:26] LABS: BLOOD, URINE NEG (NEG); COMMENT (UR) CULT NOT INDICATED; CULTURE IF INDICATED CULT NOT INDICATED; GLUCOSE,URINE NEG (NEG); KETONE, URINE 10 mg/dL (NEG); MUCUS URINE MANY /lpf (OCC); NITRITE,URINE NEG (NEG); SQUAMOUS EPITHELIAL CELL URINE <1 /hpf (0-5); URINE COLOR YELLOW (YELLW/STRAW)
[2017-05-13] MEDS ORDERED: ALPRAZolam 0.25 MG TAB PO ONE (13:15)
[2017-05-13 13:23] VITALS: BP 172/90
== END 2017-05-13 13:26 | disposition home or self-care (01) ==
LOC: NEPD 09:05
DX: K85.90 Acute pancreatitis without necrosis or infection, unspecified (principal); K86.1 Other chronic pancreatitis
CPT/HCPCS: 80053; 81001; 83690; 85025; 96361; 96374; 96376; 99284; J2270; J7030

== ENCOUNTER 2017-05-15 01:38 | Emergency (ER) | payer SELFPAY ==
[~2017-05-15 01:38] MED LIST changes: -CREON12 PO; -INSU1INJ18 SQ; +LANTUS2P SQ; -LISI10TA3 PO; -OXYC1TAB36 PO; -PROT40TA PO
[2017-05-15 01:40] VITALS: BP 160/92; PULSE 86; RESP 18; TEMP 98.3; O2SAT 97
[2017-05-15] MEDS ORDERED: HYDROmorphone HCL PF 1 MG/ML VIAL IV PUSH ONE (03:30)
[2017-05-15] MEDS ORDERED: LIDOCAINE HCL 1% 50 ML VIAL INFIL ONE (03:30)
--- NOTE | 2017-05-15 03:39 | RADRPT ---
EXAM DATE/TIME: 05/15/2017 03:15 [place] COMPARISON: No previous studies available for comparison. INDICATIONS : Left knee pain. MEDICAL HISTORY : None. SURGICAL HISTORY : None. ENCOUNTER: Initial ACUITY: 1 day PAIN SCORE: Non-responsive. LOCATION: Left knee FINDINGS: Two view examination of the left knee demonstrates no evidence of fracture or dislocation. Bony mine ralization is normal. The suprapatellar soft tissues have a normal configuration. CONCLUSION: Unremarkable study. Jaxon Bailey MD on May 15, 2017 at 3:37 Board Certified Radiologist. This report was verified electronically.
[2017-05-15 04:29] LABS: AUTOMATED NEUTROPHIL # 5.4 TH/MM3 (1.8-7.7); BASOPHIL % 0.4 % (0.0-2.0); EOSINOPHIL # 0.1 TH/MM3 (0-0.4); EOSINOPHIL % 1.3 % (0.0-4.0); HEMATOCRIT 42.8 % (39.0-51.0); HEMO FLAGS DIFF FINAL; LYMPH % 24.2 % (9.0-44.0); LYMPHOCYTE # 1.9 TH/MM3 (1.0-4.8); MEAN CELL VOLUME 95.2 FL (80.0-100.0); MEAN CORPUSCULAR HEMOGLOBIN 33.4 PG (27.0-34.0); MEAN CORPUSCULAR HGB CONC 35.1 % (32.0-36.0); MONO % 6.2 % (0.0-8.0); NEUT % 67.9 % (16.0-70.0); PLATELET COUNT 151 TH/MM3 (150-450); RED CELL DISTRIBUTION WIDTH 12.7 % (11.6-17.2)
[2017-05-15] MEDS ORDERED: MORPHINE SULFATE 4 MG/ML INJ IV PUSH ONE (05:00)
[2017-05-15 05:01] LABS: ALKALINE PHOSPHATASE 100 U/L (45-117); ALT (GPT) 24 U/L (12-78); ANION GAP 6 MEQ/L (5-15); AST (GOT) 27 U/L (15-37); BLOOD UREA NITROGEN 15 MG/DL (7-18); CHLORIDE 106 MEQ/L (98-107); GLOMERULAR FILTRATION RATE 112 ML/MIN (>89); POTASSIUM 3.7 MEQ/L (3.5-5.1); SODIUM (NA) 139 MEQ/L (136-145); TOTAL BILIRUBIN ADULT 0.4 MG/DL (0.2-1.0)
[2017-05-15 05:35] VITALS: BP 175/101; PULSE 87; RESP 16; O2SAT 100
--- NOTE | 2017-05-15 05:44 | PD ---
HPI Chief Complaint: Injury Time Seen by Provider: 03:08 Travel History International Travel<30 days: No Contact w/Intl Traveler<30days: No Traveled to known affect area: No History of Present Illness HPI This is a 47-year-old male with history of recurrent pancreatitis who presents to the emergency department with left knee swelling and pain, constant, moderate severity, worse with walking, improved with rest. He didn't injure his knee. He was in the emergency department earlier today in the setting of abdominal pain but didn't have any swelling. He's never had problems with his knee before. He denies any fevers or chills. He does have a history of diabetes. PFSH Past Medical History Anxiety: Yes Cancer: No Cardiovascular Problems: Yes Diabetes: Yes Patient Takes Glucophage: Yes Diminished Hearing: No GERD: Yes Glaucoma: Yes Genitourinary: No Headaches: Yes Hypertension: Yes Inguinal Hernia: Yes Insomnia: Yes Musculoskeletal: Yes (herniated disk) Respiratory: No Immunizations Current: Yes Pancreatitis: Yes Past Surgical History Abdominal Surgery: Yes (hiatal hernia) Appendectomy: Yes Other Surgery: Yes (pylenitol cyst removal) Social History Alcohol Use: No (pt denies) Tobacco Use: Yes (PACK A DAY ) Substance Use: Yes (weed) Allergies-Medications (Allergen,Severity, Reaction): Coded Allergies: Penicillin (Verified Allergy, Severe, Anaphylaxis, 05/15/17) Phenergan (Verified Allergy, Severe, Anaphylaxis, 05/15/17) Reglan (Verified Allergy, Severe, Anaphylaxis, 05/15/17) Reported Meds & Prescriptions Reported Meds & Active Scripts Active Lipitor (Atorvastatin Calcium) 10 Mg Tab 10 Mg PO HS Reported Lantus Inj (Insulin Glargine) 1,000 Unit/10 Ml Vial 5 Units SQ BID Review of Systems Except as stated in HPI: all other systems reviewed are Neg Physical Exam Narrative GENERAL:Well appearing, no acute distress SKIN: Focused skin assessment warm and dry. HEAD: Atraumatic. Normocephalic. EYES: Pupils equal and round. No injection or drainage. ENT: Moist mucous membranes NECK: Trachea midline. CARDIOVASCULAR: Regular rate and rhythm. No murmur appreciated. RESPIRATORY: Clear to auscultation. Breath sounds equal bilaterally. GASTROINTESTINAL: Abdomen soft, non-tender, nondistended. MUSCULOSKELETAL: Large effusion of the left knee, limited range of motion secondary to pain. 2+ bilateral DP pulses with normal capillary refill. NEUROLOGICAL: Awake and alert. No obvious cranial nerve deficits. Moving all extremities. PSYCHIATRIC: Appropriate mood and affect; insight and judgment normal. Data Data Last Documented VS Vital Signs Date Time Temp Pulse Resp B/P Pulse Ox O2 Delivery O2 Flow Rate FiO2 05/15/17 05:35 87 16 175/101 100 Room Air 05/15/17 01:40 98.3 Orders Complete Blood Count With Diff (05/15/17 03:18) Comprehensive Metabolic Panel (05/15/17 03:18) Westergren Sedimentation Rate (05/15/17 03:18) C-Reactive Protein (Crp) (05/15/17 03:18) Knee, Ltd (1 Or 2vws) (05/15/17 ) Hydromorphone Pf Inj (Dilaudid Pf Inj) (05/15/17 03:30) Lidocaine 1% Inj (50 Ml) (Xylocaine 1% I (05/15/17 03:30) Synovial Fl Cell Count + Diff (05/15/17 03:20) Synovial Fluid Crystals (05/15/17 03:20) Synovial Fluid Glucose (05/15/17 03:20) Synovial Fluid Total Protein (05/15/17 03:20) Fluid Culture And Gram Stain (05/15/17 03:20) Morphine Inj (Morphine Inj) (05/15/17 05:00) Lipase (05/15/17 05:36) Labs Laboratory Tests Test 05/15/17 04:20 White Blood Count 8.0 TH/MM3 Red Blood Count 4.50 MIL/MM3 Hemoglobin 15.0 GM/DL Hematocrit 42.8 % Mean Corpuscular Volume 95.2 FL Mean Corpuscular Hemoglobin 33.4 PG Mean Corpuscular Hemoglobin 35.1 % Concent Red Cell Distribution Width 12.7 % Platelet Count 151 TH/MM3 Mean Platelet Volume 8.4 FL Neutrophils (%) (Auto) 67.9 % Lymphocytes (%) (Auto) 24.2 % Monocytes (%) (Auto) 6.2 % Eosinophils (%) (Auto) 1.3 % Basophils (%) (Auto) 0.4 % Neutrophils # (Auto) 5.4 TH/MM3 Lymphocytes # (Auto) 1.9 TH/MM3 Monocytes # (Auto) 0.5 TH/MM3 Eosinophils # (Auto) 0.1 TH/MM3 Basophils # (Auto) 0.0 TH/MM3 CBC Comment DIFF FINAL Differential Comment Erythrocyte Sedimentation Rate 11 mm/hr Sodium Level 139 MEQ/L Potassium Level 3.7 MEQ/L Chloride Level 106 MEQ/L Carbon Dioxide Level 27.0 MEQ/L Anion Gap 6 MEQ/L Blood Urea Nitrogen 15 MG/DL Creatinine 0.88 MG/DL Estimat Glomerular Filtration 112 ML/MIN Rate Random Glucose 145 MG/DL Calcium Level 9.4 MG/DL Total Bilirubin 0.4 MG/DL Aspartate Amino Transf 27 U/L (AST/SGOT) Alanine Aminotransferase 24 U/L (ALT/SGPT) Alkaline Phosphatase 100 U/L C-Reactive Protein 0.37 MG/DL Total Protein 7.7 GM/DL Albumin 4.3 GM/DL Lipase 220 U/L [facility] Medical Decision Making Medical Screen Exam Complete: Yes Emergency Medical Condition: Yes Medical Record Reviewed: Yes (patient was seen here in the emergency department earlier today for an exacerbation of chronic pancreatitis) Interpretation(s) Afebrile, no tachycardia, hypertensive No leukocytosis Sedimentation rate is 11 Electrolytes are reassuring CRP is normal Lipase is normal Last 24 hours Impressions Knee X-Ray 05/15/17 0000 Signed Impressions: Service Date/Time: Monday, May 15, 2017 03:15 - CONCLUSION: Unremarkable study. Jaxon Bailey MD Differential Diagnosis Osteoarthritis, gout, pseudogout, septic arthritis Narrative Course This is a 47-year-old male who presents to the emergency department with left knee pain that's been going on for 1 day. He is not had symptoms like this before. He denies any fevers or chills. He is nontoxic appearing here in the emergency department. Labs are obtained which are reassuring including normal inflammatory markers. I performed an arthrocentesis of his knee which demonstrated clear fluid area synovial fluid results are pending. If reassuring patient can be discharged home. Procedures Procedure Narrative Arthrocentesis: The left knee was cleansed with ChloraPrep. 2 cc of 1% lidocaine were injected. An 18-gauge needle was inserted in the upper medial aspect of the knee and 20 cc of clear synovial fluid were aspirated. Patient tolerated the procedure well. Tessa Akins MD May 15, 2017 05:44
[2017-05-15 07:05] LABS: WBC, SYNOVIAL FLUID 735 /MM3 (0-200)
[2017-05-15] MEDS ORDERED: OMEP20TA PO (08:03)
[2017-05-15] MEDS ORDERED: IBUP-232 PO (08:03)
--- NOTE | 2017-05-15 08:03 | PD ---
Physical Exam Date Seen by Provider: May 15, 2017 Time Seen by Provider: 07:59 Narrative 47-year-old male came to the emergency room earlier in the morning for knee pain. Patient was seen by the previous ER physician and case was signed out to me. A knee joint fluid aspiration was sent for cell count, crystals and culture. The sign out was to follow-up on the fluid cell count and decide whether antibiotic and admission is required. Her suspicion for septic arthritis was low based on the patient's CBC and the appearance of the synovial fluid. The cell count did come back and WBC count is less than 2000 which makes it an inflammatory joint fluid effusion. I will discharge this patient home. Crystals were negative. Data Data Last Documented VS Orders Complete Blood Count With Diff (05/15/17 03:18) Comprehensive Metabolic Panel (05/15/17 03:18) Westergren Sedimentation Rate (05/15/17 03:18) C-Reactive Protein (Crp) (05/15/17 03:18) Knee, Ltd (1 Or 2vws) (05/15/17 ) Hydromorphone Pf Inj (Dilaudid Pf Inj) (05/15/17 03:30) Lidocaine 1% Inj (50 Ml) (Xylocaine 1% I (05/15/17 03:30) Synovial Fl Cell Count + Diff (05/15/17 03:20) Synovial Fluid Crystals (05/15/17 03:20) Synovial Fluid Glucose (05/15/17 03:20) Synovial Fluid Total Protein (05/15/17 03:20) Fluid Culture And Gram Stain (05/15/17 03:20) Morphine Inj (Morphine Inj) (05/15/17 05:00) Lipase (05/15/17 05:36) Ibuprofen (Motrin) (05/15/17 09:00) Labs Laboratory Tests Test 05/15/17 05/15/17 04:20 05:40 White Blood Count 8.0 TH/MM3 Red Blood Count 4.50 MIL/MM3 Hemoglobin 15.0 GM/DL Hematocrit 42.8 % Mean Corpuscular Volume 95.2 FL Mean Corpuscular Hemoglobin 33.4 PG Mean Corpuscular Hemoglobin 35.1 % Concent Red Cell Distribution Width 12.7 % Platelet Count 151 TH/MM3 Mean Platelet Volume 8.4 FL Neutrophils (%) (Auto) 67.9 % Lymphocytes (%) (Auto) 24.2 % Monocytes (%) (Auto) 6.2 % Eosinophils (%) (Auto) 1.3 % Basophils (%) (Auto) 0.4 % Neutrophils # (Auto) 5.4 TH/MM3 Lymphocytes # (Auto) 1.9 TH/MM3 Monocytes # (Auto) 0.5 TH/MM3 Eosinophils # (Auto) 0.1 TH/MM3 Basophils # (Auto) 0.0 TH/MM3 CBC Comment DIFF FINAL Differential Comment Erythrocyte Sedimentation Rate 11 mm/hr Sodium Level 139 MEQ/L Potassium Level 3.7 MEQ/L Chloride Level 106 MEQ/L Carbon Dioxide Level 27.0 MEQ/L Anion Gap 6 MEQ/L Blood Urea Nitrogen 15 MG/DL Creatinine 0.88 MG/DL Estimat Glomerular Filtration 112 ML/MIN Rate Random Glucose 145 MG/DL Calcium Level 9.4 MG/DL Total Bilirubin 0.4 MG/DL Aspartate Amino Transf 27 U/L (AST/SGOT) Alanine Aminotransferase 24 U/L (ALT/SGPT) Alkaline Phosphatase 100 U/L C-Reactive Protein 0.37 MG/DL Total Protein 7.7 GM/DL Albumin 4.3 GM/DL Lipase 220 U/L Synovial Fluid Color RED Synovial Fluid Appearance SLIGHT Synovial Fluid WBC 735 /MM3 Synovial Fluid RBC 5825 /MM3 Synovial Fluid Neutrophils 92 % Synovial Fluid Lymphocytes 5 % Synovial Fluid Monocytes 3 % Synovial Fluid Crystals NONE Synovial Fluid Glucose 160 mg/dL Synovial Fluid Total Protein 1.5 g/dL MDM Supervised Visit with JUANA: No Diagnosis Primary Impression: Inflammatory arthritis Additional Impression: Knee effusion Qualified Code: M25.462 - Effusion of left knee Referrals: Primary Care Physician Additional Instruction: Follow-up with your primary care physician. Take the medication as per the prescription direction. Med/Other Pt SpecificInfo: Prescription(s) given Scripts Omeprazole 20 Mg Tab20 Mg PO DAILY #30 TAB Ref 0 Prov:Bao Frederick MD 05/15/17 Ibuprofen 600 Mg [id number] Mg PO Q6H PRN (Pain/Inflammation) #40 TAB Ref 0 Prov:Bao Frederick MD 05/15/17 Disposition: 01 DISCHARGE HOME Condition: Stable Bao Frederick MD May 15, 2017 08:03 Disposition: 01 DISCHARGE HOME Condition: Stable Bao Frederick MD May 15, 2017 08:03
[2017-05-15] MEDS ORDERED: IBUPROFEN 600 MG TAB PO ONE (09:00)
[2017-05-16 23:54] LABS: TOTAL PROTEIN, SYNOVIAL FLUID 1.5 g/dL (1.0-3.0)
== END 2017-05-15 09:12 | disposition home or self-care (01) ==
LOC: NEPE 01:38
DX: M13.862 Other specified arthritis, left knee (principal); M25.462 Effusion, left knee; F41.9 Anxiety disorder, unspecified; K21.9 Gastro-esophageal reflux disease without esophagitis; H40.9 Unspecified glaucoma; I10 Essential (primary) hypertension; K85.90 Acute pancreatitis without necrosis or infection, unspecified; F17.200 Nicotine dependence, unspecified, uncomplicated; Z79.4 Long term (current) use of insulin
CPT/HCPCS: 20610; 73560; 80053; 82945; 83690; 84157; 85025; 85652; 86140; 87070; 87205; 89051; 89060; 96374; 96375; 99284; J1170; J2270

== ENCOUNTER 2017-07-02 02:08 | Emergency (ER) | payer SELFPAY ==
[~2017-07-02] VITALS: Ht 177.8 cm; Wt 70.5 kg
[~2017-07-02 02:08] MED LIST changes: +IBUP-232 PO; +OMEP20TA PO
[2017-07-02 02:10] VITALS: BP 170/90; PULSE 100; RESP 20; TEMP 97.5; O2SAT 100
[2017-07-02] MEDS ORDERED: PERC10TA27 PO (02:22)
[2017-07-02] MEDS ORDERED: SODIUM CHLOR 0.9% 1000 ML INJ 1,000 ML IV SCH (02:26)
[2017-07-02 02:30] VITALS: RESP 22; O2SAT 97
[2017-07-02] MEDS ORDERED: SODIUM CHLORIDE 0.9% FLUSH 10 ML FLUSH IV FLUSH PRN (02:30)
[2017-07-02] MEDS ORDERED: ONDANSETRON HCL 4 MG/2 ML VIAL IVP ONE (02:30)
[2017-07-02] MEDS ORDERED: HYDROmorphone HCL PF 1 MG/ML VIAL IVS ONE (02:30)
--- NOTE | 2017-07-02 02:30 | PD ---
HPI Chief Complaint: Back/ Neck Pain or Injury Time Seen by Provider: 02:25 Travel History International Travel<30 days: No Contact w/Intl Traveler<30days: No Traveled to known affect area: No History of Present Illness HPI 47-year-old male with history of diabetes on Lantus, pancreatitis, here for evaluation of epigastric abdominal pain radiating to his back, feels like previous pancreatitis episodes. Symptoms started yesterday and it progressively worsened. Pain is sharp and severe, associated with nausea and vomiting. Last bowel movement was yesterday. He reports history of bowel obstruction requiring operative intervention. PFSH Past Medical History Anxiety: Yes Cancer: No Cardiovascular Problems: Yes Diabetes: Yes Patient Takes Glucophage: No Diminished Hearing: No GERD: Yes Glaucoma: Yes Genitourinary: No Headaches: Yes Hypertension: Yes Inguinal Hernia: Yes Implanted Vascular Access Dvce: No Insomnia: Yes Musculoskeletal: Yes (herniated disk) Respiratory: No Immunizations Current: Yes Pancreatitis: Yes Tetanus Vaccination: > 5 Years Past Surgical History Abdominal Surgery: Yes (hiatal hernia) Appendectomy: Yes Other Surgery: Yes (pylenitol cyst removal) Social History Alcohol Use: No (pt denies) Tobacco Use: Yes (PACK A DAY ) Substance Use: Yes (weed) Allergies-Medications (Allergen,Severity, Reaction): Coded Allergies: metoclopramide (Unverified Allergy, Severe, Anaphylaxis, 07/02/17) penicillin G (Unverified Allergy, Severe, Anaphylaxis, 07/02/17) promethazine (Unverified Allergy, Severe, Anaphylaxis, 07/02/17) Reported Meds & Prescriptions Reported Meds & Active Scripts Active Percocet (Oxycodone-Acetaminophen) 5-325 mg Tab 1 Tab PO Q6H PRN Omeprazole 20 Mg Tab 20 Mg PO DAILY Lipitor (Atorvastatin Calcium) 10 Mg Tab 10 Mg PO HS Reported Percocet (Oxycodone-Acetaminophen) 10-325 mg Tab 1 Tab PO Q4H PRN Lantus Inj (Insulin Glargine) 1,000 Unit/10 Ml Vial 5 Units SQ BID Review of Systems Except as stated in HPI: all other systems reviewed are Neg Physical Exam Narrative GENERAL: Well-developed, well-nourished, moderate distress secondary to pain. SKIN: Focused skin assessment warm/dry. HEAD: Atraumatic. Normocephalic. EYES: Pupils equal and round. No scleral icterus. No injection or drainage. ENT: Mucous membranes pink and moist. NECK: Trachea midline. No JVD. CARDIOVASCULAR: Regular rate and rhythm. RESPIRATORY: No accessory muscle use. Clear to auscultation. Breath sounds equal bilaterally. GASTROINTESTINAL: Abdomen soft, nondistended. Moderate epigastric tenderness without peritoneal signs. Normal bowel sounds. MUSCULOSKELETAL: No obvious deformities. No clubbing. No cyanosis. No edema. NEUROLOGICAL: Awake and alert. No obvious cranial nerve deficits. Motor grossly within normal limits. Normal speech. PSYCHIATRIC: Appropriate mood and affect; insight and judgment normal. Data Data Last Documented VS Vital Signs Date Time Temp Pulse Resp B/P (MAP) Pulse Ox O2 Delivery O2 Flow Rate FiO2 07/02/17 02:30 22 97 Room Air 07/02/17 02:10 97.5 100 Orders Orders Complete Blood Count With Diff (07/02/17 02:26) Comprehensive Metabolic Panel (07/02/17 02:26) Lipase (07/02/17 02:26) Prothrombin Time / Inr (Pt) (07/02/17 02:26) Act Partial Throm Time (Ptt) (07/02/17 02:26) Ct Abd/Pel W Iv Contrast(Rout) (07/02/17 02:26) Iv Access Insert/Monitor (07/02/17 02:26) Ecg Monitoring (07/02/17 02:26) Oximetry (07/02/17 02:26) Ondansetron Inj (Zofran Inj) (07/02/17 02:30) Sodium Chlor 0.9% 1000 Ml Inj (Ns 1000 M (07/02/17 02:26) Sodium Chloride 0.9% Flush (Ns Flush) (07/02/17 02:30) Electrocardiogram (07/02/17 02:26) Hydromorphone Pf Inj (Dilaudid Pf Inj) (07/02/17 02:30) Beta Hydroxybutyrate (Acetone) (07/02/17 02:26) Ckmb (Isoenzyme) Profile (07/02/17 02:26) Troponin I (07/02/17 02:26) Hydromorphone Pf Inj (Dilaudid Pf Inj) (07/02/17 03:15) CKMB (07/02/17 02:45) CKMB% (07/02/17 02:45) Urinalysis - C+S If Indicated (07/02/17 03:32) Iohexol 350 Inj (Omnipaque 350 Inj) (07/02/17 03:32) Drug Screen, Random Urine (07/02/17 03:35) Labs Laboratory Tests Test 07/02/17 02:45 07/02/17 04:07 White Blood Count 10.0 TH/MM3 Red Blood Count 4.60 MIL/MM3 Hemoglobin 15.3 GM/DL Hematocrit 44.2 % Mean Corpuscular Volume 96.1 FL Mean Corpuscular Hemoglobin 33.3 PG Mean Corpuscular Hemoglobin Concent 34.7 % Red Cell Distribution Width 13.5 % Platelet Count 169 TH/MM3 Mean Platelet Volume 8.5 FL Neutrophils (%) (Auto) 66.1 % Lymphocytes (%) (Auto) 24.2 % Monocytes (%) (Auto) 7.1 % Eosinophils (%) (Auto) 2.1 % Basophils (%) (Auto) 0.5 % Neutrophils # (Auto) 6.6 TH/MM3 Lymphocytes # (Auto) 2.4 TH/MM3 Monocytes # (Auto) 0.7 TH/MM3 Eosinophils # (Auto) 0.2 TH/MM3 Basophils # (Auto) 0.0 TH/MM3 CBC Comment DIFF FINAL Differential Comment Prothrombin Time 11.5 SEC Prothromb Time International Ratio 1.0 RATIO Activated Partial Thromboplast Time 24.3 SEC Blood Urea Nitrogen 14 MG/DL Creatinine 1.14 MG/DL Random Glucose 151 MG/DL Total Protein 7.9 GM/DL Albumin 4.3 GM/DL Calcium Level 9.3 MG/DL Alkaline Phosphatase 103 U/L Aspartate Amino Transf (AST/SGOT) 29 U/L Alanine Aminotransferase (ALT/SGPT) 25 U/L Total Bilirubin 0.4 MG/DL Sodium Level 141 MEQ/L Potassium Level 4.1 MEQ/L Chloride Level 106 MEQ/L Carbon Dioxide Level 24.7 MEQ/L Anion Gap 10 MEQ/L Estimat Glomerular Filtration Rate 83 ML/MIN Total Creatine Kinase 940 U/L Creatine Kinase MB 4.5 NG/ML Creatine Kinase MB % 0.5 % Troponin I LESS THAN 0.02 NG/ML Lipase 345 U/L B-Hydroxybutyrate 0.25 MMOL/L Urine Color YELLOW Urine Turbidity CLEAR Urine pH 7.5 Urine Specific [place] 1.048 Urine Protein TRACE mg/dL Urine Glucose (UA) NEG mg/dL Urine Ketones 10 mg/dL Urine Occult Blood NEG Urine Nitrite NEG Urine Bilirubin NEG Urine Urobilinogen 4.0 MG/DL Urine Leukocyte Esterase NEG Urine RBC LESS THAN 1 /hpf Urine WBC LESS THAN 1 /hpf Urine Bacteria RARE /hpf Urine Mucus FEW /lpf Microscopic Urinalysis Comment CULT NOT INDICATED Urine Opiates Screen NEG Urine Barbiturates Screen NEG Urine Amphetamines Screen NEG Urine Benzodiazepines Screen POS Urine Cocaine Screen NEG Urine Cannabinoids Screen POS MDM Medical Decision Making Medical Screen Exam Complete: Yes Emergency Medical Condition: Yes Medical Record Reviewed: Yes Interpretation(s) EKG: Sinus, rate 80, indeterminate axis, normal intervals, no acute ischemic abnormality. Differential Diagnosis Pancreatitis, hepatobiliary disease, gastritis, peptic ulcer disease, bowel obstruction, gastroparesis Narrative Course Initial vital signs show heart rate 100, blood pressure 170/90, pulse ox 100% on room air, oral temp of 97.5F. CBC is unremarkable. CMP is remarkable for random glucose 151, otherwise unremarkable. Total CK is 940. Lipase is 345. Beta hydroxybutyrate is 0.25. Troponin is negative. Total CK is slightly elevated at 940. UA: Is not suggestive of UTI. No hematuria. CT abdomen pelvis: CONCLUSION: 1. Stable diffuse mild pancreatic ductal dilatation which may be due to sequela of prior pancreatitis without peripancreatic fluid collection or significant peripancreatic inflammation. Please note that normal CT appearance of pancreas does not exclude pancreatitis. 2. Mild hepatic steatosis. Patient was given 2 doses of pain medicine, and on reassessment he is resting comfortably. He reports history of chronic back pains and is seeing a new bottom painter next week. He was made aware of CT findings, and attributes the abnormal appearance to his pancreas to a procedure that went wrong in 1995. At this point I believe he is stable for discharge home with outpatient follow-up with his primary care physician this week. He was informed on when to return to the emergency department. He verbalizes understanding and agreement with plan. Procedures Procedure Narrative Ultrasound-guided peripheral IV: Because of difficult IV access, was asked by my nurse to place an ultrasound- guided peripheral IV. Using the linear ultrasound probe for guidance, a 20- gauge IV was placed in the patient's left arm. Site prepped with ChloraPrep prior to insertion. Tolerated well. No complications. Diagnosis Primary Impression: Abdominal pain Qualified Codes: R10.13 - Epigastric pain Referrals: Primary Care Physician 3 days Additional Instructions: Follow-up with your primary care physician this week. Return to the emergency department for worsening symptoms or any other concerns. Scripts Oxycodone-Acetaminophen (Percocet) 5-325 mg Tab 1 TAB PO Q6H Y for PAIN, #10 TAB 0 Refills Prov: Domo Hernandez MD 07/02/17 Disposition: 01 DISCHARGE HOME Condition: Stable Domo Hernandez MD Jul 02, 2017 02:30
[2017-07-02 03:02] LABS: AUTOMATED NEUTROPHIL # 6.6 TH/MM3 (1.8-7.7); BASOPHIL % 0.5 % (0.0-2.0); EOSINOPHIL # 0.2 TH/MM3 (0-0.4); EOSINOPHIL % 2.1 % (0.0-4.0); HEMATOCRIT 44.2 % (39.0-51.0); HEMO FLAGS DIFF FINAL; LYMPH % 24.2 % (9.0-44.0); LYMPHOCYTE # 2.4 TH/MM3 (1.0-4.8); MEAN CELL VOLUME 96.1 FL (80.0-100.0); MEAN CORPUSCULAR HEMOGLOBIN 33.3 PG (27.0-34.0); MEAN CORPUSCULAR HGB CONC 34.7 % (32.0-36.0); MONO % 7.1 % (0.0-8.0); NEUT % 66.1 % (16.0-70.0); PLATELET COUNT 169 TH/MM3 (150-450); RED CELL DISTRIBUTION WIDTH 13.5 % (11.6-17.2)
[2017-07-02 03:10] LABS: APTT (PATIENT) 24.3 SEC (24.3-30.1); PROTHROMBIN TIME - PATIENT 11.5 SEC (9.8-11.6)
[2017-07-02 03:13] LABS: ALT (GPT) 25 U/L (12-78); ANION GAP 10 MEQ/L (5-15); AST (GOT) 29 U/L (15-37); BICARBONATE 24.7 MEQ/L (21.0-32.0); BLOOD UREA NITROGEN 14 MG/DL (7-18); CHLORIDE 106 MEQ/L (98-107); GLOMERULAR FILTRATION RATE 83 ML/MIN (>89); POTASSIUM 4.1 MEQ/L (3.5-5.1); SODIUM (NA) 141 MEQ/L (136-145)
[2017-07-02] MEDS ORDERED: HYDROmorphone HCL PF 1 MG/ML VIAL IV PUSH ONE (03:15)
[2017-07-02 03:27] LABS: ALKALINE PHOSPHATASE 103 U/L (45-117); BETA-HYDROXYBUTYRATE 0.25 MMOL/L (0.00-0.39); CREATINE KINASE 940 U/L (39-308); TOTAL BILIRUBIN ADULT 0.4 MG/DL (0.2-1.0)
[2017-07-02] MEDS ORDERED: IOHEXOL 350 MG/ML 10 ML VIAL (for RAD DIAG) IVCONTRAST ONE (03:32)
[2017-07-02 03:39] LABS: CKMB 4.5 NG/ML (0.5-3.6)
--- NOTE | 2017-07-02 03:53 | RADRPT ---
EXAM DATE/TIME: 07/02/2017 03:31 [facility] COMPARISON: CT ABDOMEN & PELVIS W CONTRAST, March 03, 2017, 13:31. INDICATIONS : Epigastric abdominal pain. History of pancreatitis. IV CONTRAST: 95 cc Omnipaque 350 (iohexol) IV ORAL CONTRAST: No oral contrast ingested. RADIATION DOSE: 5.19 CTDIvol (mGy) MEDICAL HISTORY : Cardiovascular disease. Hypertension. Pancreatitis.Inguinal hernia. Diabetes. SURGICAL HISTORY : Back surgery. ENCOUNTER: Initial ACUITY: 1 day PAIN SCALE: 8/10 LOCATION: Bilateral TECHNIQUE: Volumetric scanning of the abdomen and pelvis was performed. Using automated exposure control and ad justment of the mA and/or kV according to patient size, radiation dose was kept as low as reasonably achievable to obtain optimal diagnostic quality images. DICOM format image data is available electro nically for review and comparison. FINDINGS: LOWER LUNGS: The visualized lower lungs are clear. LIVER: Diffusely decreased density without significant intrapelvic ductal dilatation or gross focal mass. Ga llbladder is grossly unremarkable by CT. SPLEEN: Normal size without lesion. PANCREAS: Redemonstration of mild pancreatic ductal dilatation. Pancreas is otherwise unremarkable by CT. No si gnificant peripancreatic fluid collections or stranding. KIDNEYS: Normal in size and shape. There is no mass, stone or hydronephrosis. ADRENAL GLANDS: Within normal limits. VASCULAR: There is no aortic aneurysm. BOWEL/MESENTERY: The stomach, small bowel, and colon demonstrate no acute abnormality. There is no free intraperitone al air or fluid. Appendix is not directly visualized. ABDOMINAL WALL: Within normal limits. RETROPERITONEUM: There is no lymphadenopathy. BLADDER: No wall thickening or mass. REPRODUCTIVE: Within normal limits. INGUINAL: There is no lymphadenopathy or hernia. MUSCULOSKELETAL: S. shaped lumbar scoliosis with associated degenerative spondylosis. CONCLUSION: 1. Stable diffuse mild pancreatic ductal dilatation which may be due to sequela of prior pancreatitis without peripancreatic fluid collection or significant peripancreatic inflammation. Please note that normal CT appearance of pancreas does not exclude pancreatitis. 2. Mild hepatic steatosis. Boogie Hansen MD on July 02, 2017 at 3:45 Board Certified Radiologist. This report was verified electronically.
[2017-07-02 04:26] LABS: BACTERIA, URINE RARE /hpf; BLOOD, URINE NEG (NEG); COMMENT (UR) CULT NOT INDICATED; CULTURE IF INDICATED CULT NOT INDICATED; GLUCOSE,URINE NEG (NEG); KETONE, URINE 10 mg/dL (NEG); MUCUS URINE FEW /lpf (OCC); NITRITE,URINE NEG (NEG); PH, URINE 7.5 (5.0-8.5); URINE COLOR YELLOW (YELLW/STRAW)
[2017-07-02] MEDS ORDERED: PERC5TAB12 PO (05:23)
[2017-07-02 06:27] VITALS: BP 135/65; PULSE 100; RESP 20; O2SAT 99
--- NOTE | 2017-07-02 14:07 | EKG ---
Date Performed: 07/02/2017 Time Performed: 03:57:06 PTAGE: 47 years EKG: Sinus rhythm INDETERMINATE AXIS ATYPICAL ECG PREVIOUS TRACING : 03/03/2017 17.09 Sinus rhythm replaces atrial fibrillation. DOCTOR: Josue Jasso Interpretating Date/Time 07/02/2017 14:07:12
== END 2017-07-02 06:35 | disposition home or self-care (01) ==
LOC: NEPE 02:08
DX: R10.13 Epigastric pain (principal); K76.0 Fatty (change of) liver, not elsewhere classified; E11.9 Type 2 diabetes mellitus without complications; K85.90 Acute pancreatitis without necrosis or infection, unspecified; F41.9 Anxiety disorder, unspecified; I10 Essential (primary) hypertension; K21.9 Gastro-esophageal reflux disease without esophagitis; F17.200 Nicotine dependence, unspecified, uncomplicated; Z79.899 Other long term (current) drug therapy
CPT/HCPCS: 74177; 80053; 80307; 81001; 82010; 82550; 82552; 83690; 84484; 85025; 85610; 85730; 93005; 96361; 96374; 96375; 99285; J1170; J2405; J7030; Q9967

== ENCOUNTER 2017-10-07 22:11 | Observation (INO) | payer SELFPAY ==
[~2017-10-07] VITALS: Ht 162.6 cm; Wt 70.0 kg
[~2017-10-07 22:11] MED LIST changes: -IBUP-232 PO; -OMEP20TA PO; +OMEP20TA93 PO; +PERC10TA27 PO; +PERC5TAB12 PO
[2017-10-07 22:13] VITALS: BP 137/79; PULSE 103; RESP 18; TEMP 98.4; O2SAT 97
[2017-10-07] MEDS ORDERED: ASPIRIN 81 MG CHEW TAB CHEW ONE (23:00)
[2017-10-07] MEDS ORDERED: ONDANSETRON HCL 4 MG/2 ML VIAL IV ONE (23:00)
[2017-10-07] MEDS ORDERED: SODIUM CHLOR 0.9% 1000 ML INJ 1,000 ML IV ONE (23:00)
[2017-10-07] MEDS ORDERED: NITROGLYCERIN 2% OINT 1 GM PACKET TOPICAL ONE (23:00)
[2017-10-07 23:25] LABS: AUTOMATED NEUTROPHIL # 11.6 TH/MM3 (1.8-7.7); BASOPHIL # 0.1 TH/MM3 (0-0.2); BASOPHIL % 0.5 % (0.0-2.0); EOSINOPHIL % 0.2 % (0.0-4.0); HEMO FLAGS DIFF FINAL; LYMPH % 13.4 % (9.0-44.0); LYMPHOCYTE # 1.9 TH/MM3 (1.0-4.8); MEAN CELL VOLUME 94.8 FL (80.0-100.0); MEAN CORPUSCULAR HEMOGLOBIN 33.1 PG (27.0-34.0); MEAN CORPUSCULAR HGB CONC 34.9 % (32.0-36.0); MONO % 5.4 % (0.0-8.0); NEUT % 80.5 % (16.0-70.0); PLATELET COUNT 186 TH/MM3 (150-450); RED BLOOD COUNT 4.53 MIL/MM3 (4.50-5.90); RED CELL DISTRIBUTION WIDTH 13.4 % (11.6-17.2); WHITE BLOOD COUNT 14.4 TH/MM3 (4.0-11.0)
[2017-10-07 23:26] VITALS: O2SAT 99
[2017-10-07] MEDS ORDERED: HYDROmorphone HCL PF 2 MG/ML VIAL IV PUSH ONE (23:30)
[2017-10-07 23:31] LABS: APTT (PATIENT) 22.5 SEC (24.3-30.1); INTERNATIONAL NORMALIZED RATIO 1.2 RATIO
[2017-10-07 23:40] LABS: ALT (GPT) 26 U/L (12-78); ANION GAP 9 MEQ/L (5-15); AST (GOT) 27 U/L (15-37); BICARBONATE 28.5 MEQ/L (21.0-32.0); BLOOD UREA NITROGEN 13 MG/DL (7-18); CHLORIDE 104 MEQ/L (98-107); GLOMERULAR FILTRATION RATE 89 ML/MIN (>89); MAGNESIUM 1.9 MG/DL (1.5-2.5); POTASSIUM 3.7 MEQ/L (3.5-5.1); SODIUM (NA) 141 MEQ/L (136-145)
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
[2017-10-07 23:42] LABS: ALKALINE PHOSPHATASE 101 U/L (45-117); BETA-HYDROXYBUTYRATE 0.23 MMOL/L (0.00-0.39); CREATINE KINASE 691 U/L (39-308); TOTAL BILIRUBIN ADULT 0.3 MG/DL (0.2-1.0)
[2017-10-07 23:45] LABS: ALCOHOL LESS THAN 3 MG/DL (0-5)
[2017-10-07 23:57] LABS: CKMB 6.4 NG/ML (0.5-3.6)
[2017-10-08] VITALS (9 sets, daily range): BP systolic 131–144; BP diastolic 62–87; PULSE 61–89; RESP 15–24; TEMP 95.6–98.5; O2SAT 97–99
[2017-10-08] MEDS ORDERED: ONDANSETRON HCL 4 MG/2 ML VIAL IV PUSH ONE
[2017-10-08] MEDS ORDERED: HYDROmorphone HCL PF 2 MG/ML VIAL IV PUSH ONE
--- NOTE | 2017-10-08 00:16 | RADRPT ---
EXAM DATE/TIME: 10/07/2017 23:50 [facility] COMPARISON: CHEST SINGLE AP, October 15, 2016, 2:03. INDICATIONS : Chest pain, shortness of breath. MEDICAL HISTORY : None. SURGICAL HISTORY : None. ENCOUNTER: Initial ACUITY: 1 day PAIN SCORE: 1/10 LOCATION: Bilateral chest FINDINGS: A single view of the chest demonstrates the lungs to be symmetrically aerated without evidence of mas s, infiltrate or effusion. The cardiomediastinal contours are unremarkable. Osseous structures are intact. CONCLUSION: The lungs are clear. Jayson Chau MD on October 08, 2017 at 0:15 Board Certified Radiologist. This report was verified electronically.
[2017-10-08] MEDS ORDERED: IOHEXOL 350 MG/ML 10 ML VIAL (for RAD DIAG) IVCONTRAST ONE (01:24)
--- NOTE | 2017-10-08 01:57 | RADRPT ---
EXAM DATE/TIME: 10/08/2017 01:07 [place] COMPARISON: CT ABDOMEN & PELVIS W CONTRAST, July 02, 2017, 3:31. INDICATIONS : Abdomen pain with vomiting. IV CONTRAST: 85 cc Omnipaque 350 (iohexol) IV ORAL CONTRAST: No oral contrast ingested. RADIATION DOSE: 6.89 CTDIvol (mGy) MEDICAL HISTORY : Cardiovascular disease. Hypertension. Pancreatitis.Diabetes SURGICAL HISTORY : Appendectomy. ENCOUNTER: Initial ACUITY: 1 day PAIN SCALE: 7/10 LOCATION: abdomen TECHNIQUE: Volumetric scanning of the abdomen and pelvis was performed. Using automated exposure control and ad justment of the mA and/or kV according to patient size, radiation dose was kept as low as reasonably achievable to obtain optimal diagnostic quality images. DICOM format image data is available electro nically for review and comparison. FINDINGS: LOWER LUNGS: The visualized lower lungs are clear. LIVER: Homogeneous density without lesion. Mild steatosis, similar to prior. There is no dilation of the b iliary tree. No calcified gallstones. SPLEEN: Normal size without lesion. PANCREAS: Pancreatic duct is visualized to the tail. The configuration of the pancreas is very similar to prio r CT in June 2017. KIDNEYS: Normal in size and shape. There is no mass, stone or hydronephrosis. ADRENAL GLANDS: Within normal limits. VASCULAR: There is no aortic aneurysm. BOWEL/MESENTERY: The stomach, small bowel, and colon demonstrate no acute abnormality. There is no free intraperitone al air or fluid. ABDOMINAL WALL: Within normal limits. RETROPERITONEUM: There is no lymphadenopathy. BLADDER: No wall thickening or mass. REPRODUCTIVE: Within normal limits. INGUINAL: There is no lymphadenopathy or hernia. MUSCULOSKELETAL: Stable S-shaped scoliosis with associated degenerative changes at the L4-5 end plates. CONCLUSION: No acute findings in the abdomen/pelvis. Jayson Chau MD on October 08, 2017 at 1:53 Board Certified Radiologist. This report was verified electronically.
[2017-10-08] MEDS ORDERED: ACETAMINOPHEN 325 MG TAB PO PRN (02:45)
[2017-10-08] MEDS ORDERED: NALOXONE HCL 0.4 MG/ML AMP IV PUSH PRN (02:45)
[2017-10-08] MEDS ORDERED: GLUCAGON 1 MG/ML VIAL OTHER PRN (02:45)
[2017-10-08] MEDS ORDERED: SODIUM CHLORIDE 0.9% FLUSH 10 ML FLUSH IV FLUSH PRN (02:45)
[2017-10-08] MEDS ORDERED: DEXTROSE 50% IN WATER 50 ML VIAL(D50) IV PUSH PRN (02:45)
[2017-10-08] MEDS ORDERED: ONDANSETRON HCL 4 MG/2 ML VIAL IVP PRN (02:45)
[2017-10-08 02:57] LABS: BLOOD, URINE NEG (NEG); COMMENT (UR) CULT NOT INDICATED; CULTURE IF INDICATED CULT NOT INDICATED; GLUCOSE,URINE NEG (NEG); KETONE, URINE 10 mg/dL (NEG); MUCUS URINE FEW /lpf (OCC); NITRITE,URINE NEG (NEG); PH, URINE 6.5 (5.0-8.5); URINE COLOR YELLOW (YELLW/STRAW)
[2017-10-08] MEDS: SODIUM CHLOR 0.9% 1000 ML INJ 1,000 ML IV SCH ×3 (03:40→20:20)
[2017-10-08] MEDS: HYDROmorphone HCL PF 2 MG/ML VIAL IV PUSH PRN ×2 (04:06→09:15)
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
[2017-10-08 06:08] LABS: CREATINE KINASE 954 U/L (39-308)
[2017-10-08 06:20] LABS: CKMB 5.8 NG/ML (0.5-3.6)
[2017-10-08] MEDS: INSULIN ASPART SUPPLEMENTAL SCALE SQ SCH ×4 (08:47→21:00)
[2017-10-08] MEDS: SODIUM CHLORIDE 0.9% FLUSH 10 ML FLUSH IV FLUSH SCH ×2 (09:00→20:54)
[2017-10-08] MEDS ORDERED: INSULIN DETEMIR 100 UNITS/ML VIAL SQ SCH (09:00)
[2017-10-08] MEDS ORDERED: PANTOPRAZOLE SOD 20 MG DELAYED RELEASE TAB PO SCH (09:00)
--- NOTE | 2017-10-08 11:35 | EKG ---
Date Performed: 10/07/2017 Time Performed: 22:28:32 PTAGE: 47 years EKG: SINUS BRADYCARDIA BORDERLINE ECG PREVIOUS TRACING : 07/02/2017 03.57 DOCTOR: Carlos Alberto Man Interpretating Date/Time 10/08/2017 11:34:18
[2017-10-08] MEDS ORDERED: DOCUSATE SODIUM 50 MG/SENNA 8.6 MG TAB PO ONE (11:45)
--- NOTE | 2017-10-08 11:47 | EKG ---
Date Performed: 10/08/2017 Time Performed: 06:17:32 PTAGE: 47 years EKG: Sinus rhythm NORMAL ECG Compared to prior tracing no significant change PREVIOUS TRACING : 10/07/2017 22.28 DOCTOR: Carlos Alberto Man Interpretating Date/Time 10/08/2017 11:46:39
--- NOTE | 2017-10-08 11:57 | HHI.PR ---
Subjective Remarks Follow up on patient with N/V and abdominal pain. Patient seen and examined. Patient states he ate a piece of fruit last night and soon after began having severe abdominal pain, nausea and nonbloody vomitus. Patient states his abdominal pain has improved. He was able to tolerate breakfast without any increase in belly pain, nausea or vomiting. He states his pain is located mostly over epigastrium and is currently 2/10. Patient denies any fever or chills. He denies taking any anti-inflammatories on a regular basis. Denies any daily alcohol use, states his last alcoholic beverage was 2 weeks ago. He denies any hx of GERD. He reports occasional black stools but has not seen any in awhile. He denies any bright red per rectum. Reports multiple scope procedures in the past, the last one being one year ago and denies any significant findings. Patient takes Percocet for chronic back pain. He denies any dysuria but reports hesitancy and slow stream. He has a FMHX of prostate cancer. He denies any complaints of fever, chills, chest pain or shortness of breath. Objective Vitals Vital Signs Date Time Temp Pulse Resp B/P (MAP) Pulse Ox O2 Delivery O2 Flow Rate FiO2 10/08/17 09:45 18 10/08/17 08:56 96.8 68 20 140/78 (98) 97 10/08/17 04:02 98.5 88 18 134/87 (103) 99 10/08/17 03:49 10/08/17 00:18 89 24 144/62 (89) 97 Room Air 10/08/17 00:18 16 10/08/17 00:18 16 10/07/17 23:26 99 Room Air 10/07/17 22:13 98.4 103 18 137/79 (98) 97 Result Diagram: 10/07/17 2305 10/07/17 2305 Imaging Last Impressions Abdomen/Pelvis CT 10/08/17 0028 Signed Impressions: Service Date/Time: Sunday, October 08, 2017 01:07 - CONCLUSION: No acute findings in the abdomen/pelvis. Jayson Chau MD Chest X-Ray 10/07/17 3952 Signed Impressions: Service Date/Time: Saturday, October 07, 2017 23:50 - CONCLUSION: The lungs are clear. Jayson Chau MD Objective Remarks GENERAL: WDWN Jaqueline male lying in bed sleeping soundly. Patient awoke after speaking his name loudly several times. Appears comfortable. SKIN: No rashes, ecchymoses or lesions. Warm and dry. Multiple tattoos. HEAD: Atraumatic. Normocephalic. EYES: Extraocular motions intact. No scleral icterus. No injection or drainage. ENT: Nose without bleeding, purulent drainage or septal hematoma. Airway patent. MMM. NECK: Trachea midline. CARDIOVASCULAR: Regular rate and rhythm without murmurs, gallops, or rubs. RESPIRATORY: Clear to auscultation. Breath sounds equal bilaterally. No wheezes , rales, or rhonchi. GASTROINTESTINAL: Abdomen soft, nondistended. N(+)mild tenderness to palpation over the epigastric area. No hepato-splenomegaly, or palpable masses. No guarding. MUSCULOSKELETAL: Extremities without clubbing, cyanosis, or edema. No calf tenderness. NEUROLOGICAL: Awake and alert. Able to move all extremities spontaneously. Motor and sensory function grossly intact bilateral upper and lower extremities. Normal speech. Medications and IVs Current Medications Medications (Trade) Dose Ordered Sig/Anisha Route Start Time Stop Time Status Last Admin Sodium Chloride 1,000 ml @ 100 mls/hr Q10H IV 10/08/17 02:34 10/08/17 03:40 (NS Flush) 2 ml UNSCH PRN IV FLUSH 10/08/17 02:45 (NS Flush) 2 ml BID IV FLUSH 10/08/17 09:00 (Tylenol) 650 mg Q4H PRN PO 10/08/17 02:45 (Zofran Inj) 4 mg Q6H PRN IVP 10/08/17 02:45 (Narcan Inj) 0.4 mg UNSCH PRN IV PUSH 10/08/17 02:45 (Dilaudid Pf Inj) 1 mg Q4H PRN IV PUSH 10/08/17 02:45 10/08/17 09:15 (D50w (Vial) Inj) 50 ml UNSCH PRN IV PUSH 10/08/17 02:45 (Glucagon Inj) 1 mg UNSCH PRN OTHER 10/08/17 02:45 (NovoLOG SUPPLEMENTAL SCALE) 1 ACHS SLIDING SCALE SQ 10/08/17 08:00 (Lipitor) 10 mg HS PO 10/08/17 21:00 (Protonix) 20 mg DAILY PO 10/08/17 09:00 10/08/17 09:15 (Levemir Inj) 5 units BID SQ 10/08/17 09:00 10/08/17 09:36 A/P Assessment and Plan 47yo male with PMHX of pancreatitis, IDDM, hx of SBO, HLD and polysubstance abuse admitted with abdominal pain, nausea and vomiting. Acute pancreatitis versus exacerbation of chronic pancreatitis versus cannabis hyperemesis syndrome versus GERD - patient has had multiple "scopes" in the past but is unclear of the results. Last one 3 years ago. - He was able to tolerate diet this morning without any difficulties but later in the day c/o severe epigastric pain requiring IV Morphine. Consult GI, appreciate recommendations. - Doubt acute pancreatitis given lipase level of 351, and unremarkable findings on CT abdomen/pelvis, no e/o of SBO - No evidence of DKA - de-escalate diet to clear liquids due to increased abdominal pain - pain management with bowel regimen. Chest pain Atypical, suspect GI etiology - no complaints of chest pain today - patients troponins have been negative x 2. Continue serial enzymes. - EKG reviewed, no evidence of acute ischemic changes - PPI Rhabdomyolysis - Suspect secondary to polysubstance abuse, urine drug screen positive for opiates, benzodiazepines, cocaine, cannabis - CK trending up, 691 to 954 - increase IVF rate - continue to trend CK and monitor kidney function. AM labs ordered. - avoid use of BB Leukocytosis - suspect reactive - Patient is afebrile, he does not appear septic. - UA unremarkable except for small ketonuria - Chest x-ray unremarkable, images personally reviewed - Follow-up with repeat white count Insulin-dependent diabetes mellitus - Heart healthy diabetic diet - obtain HgbA1c - Patient continued on home dose of Lantus 5 units twice a day. BS 95 this am. Will hold scheduled insulin for now. - accuchecks and ISS Chronic back pain Hx of previous back surgery - Eforsce confirms patient receives 120 Percocet 10/325mg monthly prescribed by Dr. Lowery, last filled 09/20. - Percocet 10mg one po q q6h prn pain Melena - patient reports episodes of black stools - stool hemoccult ordered - H/H stable, continue to monitor Hesitancy, slow stream Probable BPH FMHX of CAP - UA not indicative of UTI - obtain PSA Dyslipidemia - hold home dose of Lipitor for now 2/2 rhabdomyolysis Glaucoma - Patient uses medical marijuana DVT prophylaxis - bilateral SCD/CARMELA hose - encouraged ambulation Discussed with patient, nursing staff and Dr. Gamboa Discharge Planning Pending CK results and GI evaluation/clearance Luli Tucker Oct 08, 2017 11:57
[2017-10-08 14:43] LABS: ANION GAP 8 MEQ/L (5-15); BICARBONATE 23.7 MEQ/L (21.0-32.0); BLOOD UREA NITROGEN 12 MG/DL (7-18); CHLORIDE 111 MEQ/L (98-107); GLOMERULAR FILTRATION RATE 126 ML/MIN (>89); POTASSIUM 3.9 MEQ/L (3.5-5.1); SODIUM (NA) 143 MEQ/L (136-145)
[2017-10-08 15:36] LABS: AUTOMATED NEUTROPHIL # 4.6 TH/MM3 (1.8-7.7); BASOPHIL % 0.3 % (0.0-2.0); EOSINOPHIL # 0.1 TH/MM3 (0-0.4); EOSINOPHIL % 0.9 % (0.0-4.0); HEMATOCRIT 39.2 % (39.0-51.0); HEMO FLAGS DIFF FINAL; LYMPH % 28.3 % (9.0-44.0); LYMPHOCYTE # 2.1 TH/MM3 (1.0-4.8); MEAN CELL VOLUME 97.6 FL (80.0-100.0); MEAN CORPUSCULAR HEMOGLOBIN 32.8 PG (27.0-34.0); MEAN CORPUSCULAR HGB CONC 33.6 % (32.0-36.0); MONO % 6.7 % (0.0-8.0); NEUT % 63.8 % (16.0-70.0); PLATELET COUNT 148 TH/MM3 (150-450); RED BLOOD COUNT 4.01 MIL/MM3 (4.50-5.90); RED CELL DISTRIBUTION WIDTH 13.8 % (11.6-17.2); WHITE BLOOD COUNT 7.3 TH/MM3 (4.0-11.0)
[2017-10-08 16:03] LABS: CREATINE KINASE 1090 U/L (39-308)
[2017-10-08 16:16] LABS: CKMB 4.6 NG/ML (0.5-3.6)
[2017-10-08] MEDS: oxyCODONE/ACETAMINOPHEN 10 MG/325 MG TAB PO PRN ×2 (16:27→23:24)
[2017-10-08] MEDS: MORPHINE SULFATE 4 MG/ML INJ IV PUSH PRN ×2 (17:47→20:51)
--- NOTE | 2017-10-08 18:06 | EKG ---
Date Performed: 10/08/2017 Time Performed: 11:19:18 PTAGE: 47 years EKG: Sinus rhythm Since previous tracing, no significant change noted NORMAL ECG PREVIOUS TRACING : 10/08/2017 [id number] DOCTOR: Carlos Alberto Man Interpretating Date/Time 10/08/2017 18:04:46
[2017-10-08] MEDS: DOCUSATE SODIUM 50 MG/SENNA 8.6 MG TAB PO SCH (20:54)
[2017-10-08] MEDS ORDERED: ATORVASTATIN 10 MG TAB PO SCH (21:00)
[2017-10-08 22:18] LABS: HEMOGLOBIN Ao 82.5 %; HEMOGLOBIN LA1C 2.3 %; HEMOGLOBIN P3 4.2 %
[2017-10-09] VITALS (10 sets, daily range): BP systolic 127–181; BP diastolic 68–87; PULSE 59–77; RESP 16–20; TEMP 97.9–98.9; O2SAT 95–99
[2017-10-09] MEDS: MORPHINE SULFATE 4 MG/ML INJ IV PUSH PRN ×3 (00:15→09:36)
[2017-10-09] MEDS ORDERED: LORazepam 0.5 MG TAB PO ONE (00:45)
[2017-10-09] MEDS: SODIUM CHLOR 0.9% 1000 ML INJ 1,000 ML IV SCH ×3 (04:20→14:20)
[2017-10-09] MEDS: oxyCODONE/ACETAMINOPHEN 10 MG/325 MG TAB PO PRN ×3 (05:32→19:44)
[2017-10-09 06:45] LABS: AUTOMATED NEUTROPHIL # 2.5 TH/MM3 (1.8-7.7); BASOPHIL % 0.3 % (0.0-2.0); EOSINOPHIL # 0.1 TH/MM3 (0-0.4); EOSINOPHIL % 1.4 % (0.0-4.0); HEMO FLAGS DIFF FINAL; LYMPH % 46.4 % (9.0-44.0); LYMPHOCYTE # 2.6 TH/MM3 (1.0-4.8); MEAN CELL VOLUME 96.7 FL (80.0-100.0); MEAN CORPUSCULAR HEMOGLOBIN 33.4 PG (27.0-34.0); MEAN CORPUSCULAR HGB CONC 34.6 % (32.0-36.0); MONO % 7.4 % (0.0-8.0); NEUT % 44.5 % (16.0-70.0); PLATELET COUNT 131 TH/MM3 (150-450); RED BLOOD COUNT 3.93 MIL/MM3 (4.50-5.90); RED CELL DISTRIBUTION WIDTH 13.8 % (11.6-17.2); WHITE BLOOD COUNT 5.6 TH/MM3 (4.0-11.0)
[2017-10-09 06:47] LABS: INTERNATIONAL NORMALIZED RATIO 1.1 RATIO; PROTHROMBIN TIME - PATIENT 11.1 SEC (9.8-11.6)
[2017-10-09 07:05] LABS: BICARBONATE 27.3 MEQ/L (21.0-32.0); POTASSIUM 3.5 MEQ/L (3.5-5.1)
[2017-10-09] MEDS: INSULIN ASPART SUPPLEMENTAL SCALE SQ SCH ×4 (08:00→21:00)
[2017-10-09] MEDS: PANTOPRAZOLE SOD 40 MG DELAYED RELEASE TAB PO SCH (09:35)
[2017-10-09] MEDS: DOCUSATE SODIUM 50 MG/SENNA 8.6 MG TAB PO SCH ×2 (09:35→22:35)
[2017-10-09] MEDS: SODIUM CHLORIDE 0.9% FLUSH 10 ML FLUSH IV FLUSH SCH ×2 (09:36→22:37)
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
[2017-10-09] MEDS ORDERED: LISINOPRIL 5 MG TAB PO ONE (13:00)
--- NOTE | 2017-10-09 15:00 | HHI.PR ---
Subjective Remarks Written by Luli Tucker, acting as scribe for Dr. Gamboa on 10/09/17 at 14: 49. Follow up on patient with N/V and abdominal pain. Patient seen and examined. Patients abdominal pain better today. Denies any nausea or vomiting. No fever or chills. No chest pain or dyspnea. BM x 2. Seen by GI and refusing any procedures. Tolerating diet. Objective Vitals Vital Signs Date Time Temp Pulse Resp B/P (MAP) Pulse Ox O2 Delivery O2 Flow Rate FiO2 10/09/17 11:49 98.1 70 18 154/87 (109) 99 10/09/17 08:25 98.1 72 18 145/82 (103) 97 10/09/17 05:55 18 10/09/17 04:41 97.9 59 18 127/76 (93) 99 10/09/17 00:07 98.9 74 18 156/68 (97) 95 10/08/17 21:10 95.6 74 16 142/79 (100) 97 10/08/17 16:25 96.8 78 15 140/83 (102) 98 10/08/17 16:05 84 I/O 10/08/17 10/08/17 10/08/17 10/09/17 10/09/17 10/09/17 07:00 15:00 23:00 07:00 15:00 23:00 Intake Total 850 ml 780 ml 1000 ml Balance 850 ml 780 ml 1000 ml Intake IV Total 850 ml 780 ml 1000 ml # Voids 1 # Bowel Movements 0 1 Result Diagram: 10/09/17 0530 10/09/17 0530 Imaging Last Impressions Abdomen/Pelvis CT 10/08/17 0028 Signed Impressions: Service Date/Time: Sunday, October 08, 2017 01:07 - CONCLUSION: No acute findings in the abdomen/pelvis. Jayson Chau MD Chest X-Ray 10/07/17 8971 Signed Impressions: Service Date/Time: Saturday, October 07, 2017 23:50 - CONCLUSION: The lungs are clear. Jayson Chau MD Objective Remarks GENERAL: WDWN male lying in bed. Awake and alert. Comfortable. SKIN: Warm and dry. Multiple tattoos. HEAD: Atraumatic. Normocephalic. EYES: Extraocular motions intact. No scleral icterus. No injection or drainage. ENT: Nose without bleeding, purulent drainage or septal hematoma. Airway patent. MMM. NECK: Trachea midline. CARDIOVASCULAR: Regular rate and rhythm without murmurs, gallops, or rubs. RESPIRATORY: Clear to auscultation. Breath sounds equal bilaterally. No wheezes , rales, or rhonchi. GASTROINTESTINAL: Abdomen soft, nondistended. (+)mild tenderness to palpation over the epigastric area. No hepato-splenomegaly, or palpable masses. No guarding. MUSCULOSKELETAL: Extremities without clubbing, cyanosis, or edema. No calf tenderness. NEUROLOGICAL: Awake and alert. Able to move all extremities spontaneously. Nonfocal. Normal speech. Medications and IVs Current Medications Medications (Trade) Dose Ordered Sig/Naisha Route Start Time Stop Time Status Last Admin (NS Flush) 2 ml UNSCH PRN IV FLUSH 10/08/17 02:45 10/09/17 00:15 (NS Flush) 2 ml BID IV FLUSH 10/08/17 09:00 10/09/17 09:36 (Tylenol) 650 mg Q4H PRN PO 10/08/17 02:45 (Zofran Inj) 4 mg Q6H PRN IVP 10/08/17 02:45 (Narcan Inj) 0.4 mg UNSCH PRN IV PUSH 10/08/17 02:45 (D50w (Vial) Inj) 50 ml UNSCH PRN IV PUSH 10/08/17 02:45 (Glucagon Inj) 1 mg UNSCH PRN OTHER 10/08/17 02:45 (NovoLOG SUPPLEMENTAL SCALE) 1 ACHS SLIDING SCALE SQ 10/08/17 08:00 10/08/17 12:33 (Lipitor) 10 mg HS PO 10/08/17 21:00 Future Hold (Levemir Inj) 5 units BID SQ 10/08/17 09:00 Future Hold 10/08/17 09:36 (Protonix) 40 mg DAILY PO 10/09/17 09:00 10/09/17 09:35 (Gretel-Colace) 1 tab BID PO 10/08/17 21:00 10/09/17 09:35 (Percocet 10-325 Mg) 1 tab Q6H PRN PO 10/08/17 11:45 10/09/17 12:36 (Morphine Inj) 2 mg Q3H PRN IV PUSH 10/08/17 17:45 Future Hold 10/09/17 09:36 Sodium Chloride 1,000 ml @ 125 mls/hr Q8H IV 10/09/17 13:00 10/09/17 14:20 (Prinivil) 5 mg DAILY PO 10/10/17 09:00 A/P Assessment and Plan 47yo male with PMHX of pancreatitis, IDDM, hx of SBO, HLD and polysubstance abuse admitted with abdominal pain, nausea and vomiting. Acute pancreatitis versus exacerbation of chronic pancreatitis versus cannabis hyperemesis syndrome versus GERD - patient has had multiple "scopes" in the past but is unclear of the results. Last one 3 years ago. - He was able to tolerate diet this morning without any difficulties but later in the day c/o severe epigastric pain requiring IV Morphine. Consult GI, appreciate recommendations. - GI following, patient refusing any procedures - Doubt acute pancreatitis given lipase level of 351, and unremarkable findings on CT abdomen/pelvis, no e/o of SBO - No evidence of DKA - tolerating regular diet - pain management with bowel regimen/pain mgmt de-escalated to po narcotics only - continue on PPI Chest pain Atypical, suspect GI etiology - no complaints of chest pain today - ACS r/o with neg trop x 3 and EKG with no evidence of acute ischemic changes - avoid use of BB secondary to cocaine use Rhabdomyolysis - Suspect secondary to polysubstance abuse, urine drug screen positive for opiates, benzodiazepines, cocaine, cannabis. Discussed cessation of illicit drug use. - CK trending down - continue IVF - repeat CK level later today, if less than 500 plan to discharge home Hypertension - not on any antihypertensives - started on Lisinopril 5mg daily. BP improved. Continue. Follow up with PCP to continue to monitor BP. Leukocytosis - suspect reactive - Patient is afebrile, he does not appear septic. - UA unremarkable except for small ketonuria - Chest x-ray unremarkable, images personally reviewed - resolved Insulin-dependent diabetes mellitus - Heart healthy diabetic diet - HgbA1c 7.4 - Patient on Lantus 5 units twice a day at home. BS still running low 100s. Continue to hold scheduled insulin for now. - accuchecks and ISS Chronic back pain Hx of previous back surgery - [facility] confirms patient receives 120 Percocet 10/325mg monthly prescribed by Dr. Lowery, last filled 09/20. - Percocet 10mg one po q q6h prn pain Hesitancy, slow stream Probable BPH FMHX of CAP - UA not indicative of UTI - PSA 0.62 Dyslipidemia - Lipitor on hold secondary to rhabdomyolysis Glaucoma - Patient uses medical marijuana DVT prophylaxis - bilateral SCD/CARMELA hose - encouraged ambulation Discussed with patient, nursing staff and Dr. Gamboa Discharge patient to home Condition on discharge: Improved Low residue heart healthy diabetic diet as tolerated Ad Sharmila activity Rx written: Protonix 40mg daily, Lisinopril 5mg daily Follow-up with primary care physician and gastroenterology Discharge Planning Pending CK results This note was transcribed by scribe [Luli Tucker ]. I, Dr. Cem Gamboa personally performed the history, physical exam, and medical decision making; and confirmed the accuracy of the information in the transcribed note. Authenticated by Dr. Cem Gamboa on 10/09/17 at 14:57. Luli Tucker Oct 09, 2017 15:00 Cem Gamboa MD Oct 09, 2017 17:44
[2017-10-09] MEDS ORDERED: PANT40TA3 PO (15:04)
[2017-10-09] MEDS ORDERED: LISI-519 PO (15:04)
--- NOTE | 2017-10-09 15:07 | HHI.DCPOC ---
Discharge Care Plan Diagnosis: (1) Rhabdomyolysis (2) Hypertension (3) Diabetes (4) DM type 2 (diabetes mellitus, type 2) (5) Epigastric pain (6) Acute on chronic pancreatitis (7) Polysubstance abuse Goals to Promote Your Health * To prevent worsening of your condition and complications * To maintain your health at the optimal level Directions to Meet Your Goals Recommend complete cessation of illicit drug use Take your medications as prescribed Follow your dietary instruction Follow activity as directed Keep your appointments as scheduled Take your immunizations and boosters as scheduled If your symptoms worsen call your PCP, if no PCP go to Urgent Care Center or Emergency Room Smoking is Dangerous to Your Health. Avoid second hand smoke Call the 24-hour hour crisis hotline for domestic abuse at Luli Tucker Oct 09, 2017 15:07
[2017-10-09 17:27] LABS: CALCIUM-PROTEIN CORRECTED 8.9 MG/DL (8.5-10.1)
[2017-10-09 18:21] LABS: CKMB 3.2 NG/ML (0.5-3.6)
[2017-10-09] MEDS ORDERED: cloNIDine HCL 0.1 MG TAB PO PRN (21:00)
[2017-10-09] MEDS ORDERED: MORPHINE SULFATE 2 MG/ML INJ IV PUSH PRN (21:30)
[2017-10-10] MEDS: oxyCODONE/ACETAMINOPHEN 10 MG/325 MG TAB PO PRN ×2 (02:36→08:57)
[2017-10-10] MEDS: SODIUM CHLOR 0.9% 1000 ML INJ 1,000 ML IV SCH ×3 (02:38→10:14)
[2017-10-10 03:01] VITALS: BP 139/86; PULSE 63; RESP 16; TEMP 98.3; O2SAT 100
[2017-10-10 07:10] LABS: BICARBONATE 26.6 MEQ/L (21.0-32.0); POTASSIUM 3.9 MEQ/L (3.5-5.1)
[2017-10-10 07:32] LABS: CKMB 2.2 NG/ML (0.5-3.6)
[2017-10-10] MEDS: INSULIN ASPART SUPPLEMENTAL SCALE SQ SCH (08:00)
[2017-10-10 08:08] VITALS: BP 136/70; PULSE 72; RESP 18; TEMP 98.3; O2SAT 99
[2017-10-10] MEDS: SODIUM CHLORIDE 0.9% FLUSH 10 ML FLUSH IV FLUSH SCH (08:57)
[2017-10-10] MEDS: DOCUSATE SODIUM 50 MG/SENNA 8.6 MG TAB PO SCH (08:57)
[2017-10-10] MEDS: PANTOPRAZOLE SOD 40 MG DELAYED RELEASE TAB PO SCH (08:57)
[2017-10-10] MEDS ORDERED: LISINOPRIL 5 MG TAB PO SCH (09:00)
--- NOTE | 2017-10-10 10:31 | HHI.PR ---
Subjective Remarks Follow up on patient with N/V and abdominal pain. Patient seen and examined. Patient planned for discharge yesterday but postponed due to persistent elevation in CK level. Patient continued on IVF and CK has improved. Patient denies any complaints of abdominal pain, nausea or vomiting. He is tolerating diet. He is complaining of back pain which is chronic and he takes Percocet at home for. VSS. Discussed with nursing staff, no acute issues noted. Objective Vitals Vital Signs Date Time Temp Pulse Resp B/P (MAP) Pulse Ox O2 Delivery O2 Flow Rate FiO2 10/10/17 08:08 98.3 72 18 136/70 (92) 99 10/10/17 03:36 18 10/10/17 03:01 98.3 63 16 139/86 (103) 100 10/09/17 23:00 98.5 66 16 135/84 (101) 99 10/09/17 20:17 98.9 68 16 181/84 (116) 99 10/09/17 20:00 61 10/09/17 16:17 98.2 66 20 151/71 (97) 97 10/09/17 12:00 77 10/09/17 11:49 98.1 70 18 154/87 (109) 99 I/O 10/09/17 10/09/17 10/09/17 10/10/17 10/10/17 10/10/17 06:59 14:59 22:59 06:59 14:59 22:59 Intake Total 1000 ml Balance 1000 ml Intake IV Total 1000 ml # Voids 1 # Bowel Movements 1 Result Diagram: 10/09/17 0530 10/10/17 0550 Imaging Last Impressions Abdomen/Pelvis CT 10/08/17 0028 Signed Impressions: Service Date/Time: Sunday, October 08, 2017 01:07 - CONCLUSION: No acute findings in the abdomen/pelvis. Jayson Chau MD Chest X-Ray 10/07/17 1401 Signed Impressions: Service Date/Time: Saturday, October 07, 2017 23:50 - CONCLUSION: The lungs are clear. Jayson Chau MD Objective Remarks GENERAL: WDWN male lying in bed. Awake and alert. Appears comfortable. SKIN: Warm and dry. Multiple tattoos. HEAD: Atraumatic. Normocephalic. EYES: Extraocular motions intact. No scleral icterus. No injection or drainage. ENT: Nose without bleeding, purulent drainage or septal hematoma. Airway patent. MMM. NECK: Trachea midline. CARDIOVASCULAR: Regular rate and rhythm without murmurs, gallops, or rubs. RESPIRATORY: Clear to auscultation. Breath sounds equal bilaterally. No wheezes , rales, or rhonchi. GASTROINTESTINAL: Abdomen soft, nondistended, nontender to palpation. No hepato- splenomegaly, or palpable masses. No guarding. MUSCULOSKELETAL: Extremities without clubbing, cyanosis, or edema. No calf tenderness. NEUROLOGICAL: Awake and alert. Able to move all extremities spontaneously. Nonfocal. Normal speech. Medications and IVs Current Medications Medications (Trade) Dose Ordered Sig/Anisha Route Start Time Stop Time Status Last Admin (NS Flush) 2 ml UNSCH PRN IV FLUSH 10/08/17 02:45 10/09/17 00:15 (NS Flush) 2 ml BID IV FLUSH 10/08/17 09:00 10/09/17 22:37 (Tylenol) 650 mg Q4H PRN PO 10/08/17 02:45 (Zofran Inj) 4 mg Q6H PRN IVP 10/08/17 02:45 (Narcan Inj) 0.4 mg UNSCH PRN IV PUSH 10/08/17 02:45 (D50w (Vial) Inj) 50 ml UNSCH PRN IV PUSH 10/08/17 02:45 (Glucagon Inj) 1 mg UNSCH PRN OTHER 10/08/17 02:45 (NovoLOG SUPPLEMENTAL SCALE) 1 ACHS SLIDING SCALE SQ 10/08/17 08:00 10/08/17 12:33 (Lipitor) 10 mg HS PO 10/08/17 21:00 Future Hold (Levemir Inj) 5 units BID SQ 10/08/17 09:00 Future Hold 10/08/17 09:36 (Protonix) 40 mg DAILY PO 10/09/17 09:00 10/10/17 08:57 (Gretel-Colace) 1 tab BID PO 10/08/17 21:00 10/09/17 22:35 (Percocet 10-325 Mg) 1 tab Q6H PRN PO 10/08/17 11:45 10/10/17 08:57 (Morphine Inj) 2 mg Q3H PRN IV PUSH 10/08/17 17:45 Future Hold 10/09/17 09:36 Sodium Chloride 1,000 ml @ 150 mls/hr Q6H40M IV 10/09/17 13:00 10/10/17 02:38 (Prinivil) 5 mg DAILY PO 10/10/17 09:00 10/10/17 08:57 (Catapres) 0.1 mg Q6H PRN PO 10/09/17 21:00 10/09/17 22:35 A/P Assessment and Plan 47yo male with PMHX of pancreatitis, IDDM, hx of SBO, HLD and polysubstance abuse admitted with abdominal pain, nausea and vomiting. Patient schedule for discharge yesterday, d/c held due to persistent elevation in CK. CK trending down. Patient may be discharged to home. Encouraged increase fluid intake while at home. Acute pancreatitis versus exacerbation of chronic pancreatitis versus cannabis hyperemesis syndrome versus GERD, resolved - patient has had multiple "scopes" in the past but is unclear of the results. Last one 3 years ago. - tolerating diet - GI following, patient refusing any procedures - Doubt acute pancreatitis given lipase level of 351, and unremarkable findings on CT abdomen/pelvis, no e/o of SBO - No evidence of DKA - pain management with bowel regimen/pain mgmt de-escalated to po narcotics only - continue on PPI Chest pain Atypical, suspect GI etiology - no complaints of chest pain today - ACS r/o with neg trop x 3 and EKG with no evidence of acute ischemic changes - avoid use of BB secondary to cocaine use Rhabdomyolysis - Suspect secondary to polysubstance abuse, urine drug screen positive for opiates, benzodiazepines, cocaine, cannabis. Discussed cessation of illicit drug use. - CK trending down, now 568. Encouraged increased fluid intake upon discharge. Hypertension - not on any antihypertensives - started on Lisinopril 5mg daily. BP improved. Continue. Follow up with PCP to continue to monitor BP. Leukocytosis - suspect reactive - Patient is afebrile, he does not appear septic. - UA unremarkable except for small ketonuria - Chest x-ray unremarkable, images personally reviewed - resolved Insulin-dependent diabetes mellitus - Heart healthy diabetic diet - HgbA1c 7.4 - Patient on Lantus 5 units twice a day at home. BS still running low 100s. Continue to hold scheduled insulin for now. - accuchecks and ISS Chronic back pain Hx of previous back surgery - [facility] confirms patient receives 120 Percocet 10/325mg monthly prescribed by Dr. Lowery, last filled 09/20. - Percocet 10mg one po q q6h prn pain Hesitancy, slow stream Probable BPH FMHX of CAP - UA not indicative of UTI - PSA 0.62 Dyslipidemia - Lipitor held due to rhabdomyolysis. May resume once CK normalizes. Recheck in 2-3 days with PCP as outpatient. Glaucoma - Patient uses medical marijuana DVT prophylaxis - bilateral SCD/CARMELA hose - encouraged ambulation Discussed with patient, nursing staff and Dr. Gamboa Discharge patient to home Condition on discharge: Improved Low residue heart healthy diabetic diet as tolerated Ad Sharmila activity Rx written: Protonix 40mg daily, Lisinopril 5mg daily Follow-up with primary care physician and gastroenterology Luli Tucker Oct 10, 2017 10:31
== END 2017-10-10 11:41 ==
LOC: NEPE 22:11 → NEDA 10-08 02:08 → NEPGCP 10-08 03:29
PROVIDERS: ADMIT Hospitalist; ATTEND Hospitalist
DX: M62.82 Rhabdomyolysis (principal); I10 Essential (primary) hypertension; E11.9 Type 2 diabetes mellitus without complications; K85.90 Acute pancreatitis without necrosis or infection, unspecified; K86.1 Other chronic pancreatitis; F12.90 Cannabis use, unspecified, uncomplicated; K21.9 Gastro-esophageal reflux disease without esophagitis; K44.9 Diaphragmatic hernia without obstruction or gangrene; H40.9 Unspecified glaucoma; E78.5 Hyperlipidemia, unspecified; R06.02 Shortness of breath; G89.29 Other chronic pain; M54.9 Dorsalgia, unspecified; R11.0 Nausea; Z79.84 Long term (current) use of oral hypoglycemic drugs
CPT/HCPCS: 71010; 74177; 80048; 80053; 80307; 81001; 82010; 82550; 82552; 82800; 82948; 83036; 83690; 83735; 83880; 84153; 84155; 84484; 85025; 85610; 85730; 93005; 96361; 96372; 96374; 96375; 96376; 99285; G0378; J1170; J1815; J2270; J2405; J7030; Q9967

== ENCOUNTER 2017-12-11 19:42 | Emergency (ER) | payer SELFPAY ==
[~2017-12-11] VITALS: Ht 177.8 cm; Wt 70.0 kg
[~2017-12-11 19:42] MED LIST changes: +LISI-519 PO; -OMEP20TA93 PO; +PANT40TA3 PO; -PERC10TA27 PO
[2017-12-11 19:44] VITALS: BP 179/119; PULSE 143; RESP 24; TEMP 97.8; O2SAT 96
[2017-12-11 19:52] VITALS: BP 193/94; PULSE 113; RESP 32; O2SAT 98
[2017-12-11] MEDS ORDERED: SODIUM CHLOR 0.9% 1000 ML INJ 1,000 ML IV SCH (19:56)
[2017-12-11] MEDS ORDERED: ONDANSETRON HCL 4 MG/2 ML VIAL IVP ONE (20:00)
[2017-12-11] MEDS ORDERED: SODIUM CHLORIDE 0.9% FLUSH 10 ML FLUSH IV FLUSH PRN (20:00)
[2017-12-11] MEDS ORDERED: HYDROmorphone HCL PF 2 MG/ML VIAL IV PUSH ONE ×2 (20:00→22:30)
[2017-12-11 20:43] LABS: AUTOMATED NEUTROPHIL # 6.8 TH/MM3 (1.8-7.7); BASOPHIL % 0.3 % (0.0-2.0); EOSINOPHIL # 0.1 TH/MM3 (0-0.4); EOSINOPHIL % 0.5 % (0.0-4.0); HEMATOCRIT 48.8 % (39.0-51.0); HEMOGLOBIN 16.8 GM/DL (13.0-17.0); LYMPH % 23.7 % (9.0-44.0); LYMPHOCYTE # 2.3 TH/MM3 (1.0-4.8); MEAN CORPUSCULAR HEMOGLOBIN 32.7 PG (27.0-34.0); MEAN CORPUSCULAR HGB CONC 34.4 % (32.0-36.0); MEAN PLATELET VOLUME 8.5 FL (7.0-11.0); MONO % 4.8 % (0.0-8.0); MONOCYTE # 0.5 TH/MM3 (0-0.9); NEUT % 70.7 % (16.0-70.0); PLATELET COUNT 191 TH/MM3 (150-450); RED BLOOD COUNT 5.13 MIL/MM3 (4.50-5.90); RED CELL DISTRIBUTION WIDTH 13.1 % (11.6-17.2); WHITE BLOOD COUNT 9.7 TH/MM3 (4.0-11.0)
--- NOTE | 2017-12-11 20:44 | RADRPT ---
EXAM DATE/TIME: 12/11/2017 20:19 [facility] COMPARISON: CHEST SINGLE AP, October 07, 2017, 23:50. INDICATIONS : Chest pain. MEDICAL HISTORY : Cardiovascular disease. Hypertension. Pancreatitis. Diabetes. SURGICAL HISTORY : Appendectomy. ENCOUNTER: Initial ACUITY: 1 day PAIN SCORE: 10/10 LOCATION: Bilateral chest FINDINGS: The lungs are clear without infiltrate, nodule, or mass. There is no appreciable pleural effusion fo r technique. Heart and mediastinum are unremarkable. CONCLUSION: No acute cardiopulmonary disease. Jesse Jennings MD on December 11, 2017 at 20:42 Board Certified Radiologist. This report was verified electronically.
[2017-12-11 20:52] LABS: PROTHROMBIN TIME - PATIENT 10.6 SEC (9.8-11.6)
[2017-12-11 21:09] LABS: TROPONIN I LESS THAN 0.02 NG/ML (0.02-0.05)
--- NOTE | 2017-12-11 21:25 | PD ---
HPI Chief Complaint: Chest Pain Time Seen by Provider: 20:01 Travel History International Travel<30 days: No Contact w/Intl Traveler<30days: No Traveled to known affect area: No History of Present Illness HPI 47-year-old male presents to the ED for evaluation of 10/10 chest pain that radiates to the back. Sudden onset today. Patient denies fever, chills, nausea , vomiting or palpitations, shortness of breath, abdominal pain. He endorses history of pancreatitis and says the symptoms are similar. On arrival patient is writhing in pain, biting the sheet. History gathering is limited secondary to his pain. PFSH Past Medical History Asthma: Yes Blood Disorders: No Anxiety: Yes (PANICK ATTACKS) Depression: Yes Heart Rhythm Problems: No Cancer: No Cardiovascular Problems: Yes High Cholesterol: No Chest Pain: Yes Congestive Heart Failure: No Diabetes: Yes Patient Takes Glucophage: No Diminished Hearing: No Endocrine: Yes Gastrointestinal Disorders: Yes (BOWEL BLOCKAGE, PANCREATITIS, HERNIA) GERD: Yes Glaucoma: Yes Headaches: Yes Hypertension: Yes Immune Disorder: No Inguinal Hernia: Yes Implanted Vascular Access Dvce: No Insomnia: Yes Musculoskeletal: Yes (herniated disk) Neurologic: Yes Psychiatric: Yes Respiratory: Yes Immunizations Current: Yes Pancreatitis: Yes Past Surgical History Abdominal Surgery: Yes (hiatal hernia) Appendectomy: Yes Other Surgery: Yes (pylenitol cyst removal, BACK SX, RECONSTRUCTIVE JUGULAR SX , HERNIA X2, ) Social History Alcohol Use: No (pt denies) Tobacco Use: Yes (PACK A DAY ) Substance Use: Yes (weed) Allergies-Medications (Allergen,Severity, Reaction): Coded Allergies: metoclopramide (Verified Allergy, Severe, Anaphylaxis, 12/11/17) penicillin G (Verified Allergy, Severe, Anaphylaxis, 12/11/17) promethazine (Verified Allergy, Severe, Anaphylaxis, 12/11/17) Reported Meds & Prescriptions Reported Meds & Active Scripts Active Camden (Hydrocodone-Acetaminophen) 5 Mg-325 Mg Tab 1 Tab PO Q6H PRN Prednisone 20 Mg Tab 20 Mg PO BID 5 Days Pantoprazole (Pantoprazole Sodium) 40 Mg Tab 40 Mg PO DAILY Lisinopril 5 Mg Tab 5 Mg PO DAILY Percocet (Oxycodone-Acetaminophen) 5-325 mg Tab 1 Tab PO Q6H PRN Lipitor (Atorvastatin Calcium) 10 Mg Tab 10 Mg PO HS Reported Lantus Inj (Insulin Glargine) 1,000 Unit/10 Ml Vial 5 Units SQ BID Review of Systems Except as stated in HPI: all other systems reviewed are Neg Physical Exam Narrative GENERAL: Well-nourished, well-developed male in no acute distress. SKIN: Focused skin assessment warm/dry. Multiple tattoos noted. HEAD: Normocephalic. EYES: No scleral icterus. No injection or drainage. NECK: Supple, trachea midline. No JVD or lymphadenopathy. CARDIOVASCULAR: Regular rate and rhythm without murmurs, gallops, or rubs. RESPIRATORY: Breath sounds clear and equal bilaterally. No accessory muscle use. GASTROINTESTINAL: Abdomen soft, non-tender, nondistended. Active bowel sounds MUSCULOSKELETAL: No cyanosis, or edema. BACK: Left scoliosis. + TTP of the midline spine in the lower thoracic area. No CVA tenderness. Data Data Last Documented VS Vital Signs Date Time Temp Pulse Resp B/P (MAP) Pulse Ox O2 Delivery O2 Flow Rate FiO2 12/11/17 23:59 12/11/17 23:58 74 18 12/11/17 19:55 98 Room Air 12/11/17 19:44 97.8 Orders Orders Complete Blood Count With Diff (12/11/17 19:56) Comprehensive Metabolic Panel (12/11/17 19:56) Lipase (12/11/17 19:56) Lactic Acid (12/11/17 19:56) Prothrombin Time / Inr (Pt) (12/11/17 19:56) Act Partial Throm Time (Ptt) (12/11/17 19:56) Urinalysis - C+S If Indicated (12/11/17 19:56) Ct Abd/Pel W Iv Contrast(Rout) (12/11/17 19:56) Iv Access Insert/Monitor (12/11/17 19:56) Ecg Monitoring (12/11/17 19:56) Oximetry (12/11/17 19:56) Ondansetron Inj (Zofran Inj) (12/11/17 20:00) Sodium Chlor 0.9% 1000 Ml Inj (Ns 1000 M (12/11/17 19:56) Sodium Chloride 0.9% Flush (Ns Flush) (12/11/17 20:00) Electrocardiogram (12/11/17 19:56) Hydromorphone Pf Inj (Dilaudid Pf Inj) (12/11/17 20:00) Chest, Single Ap (12/11/17 ) Troponin I (12/11/17 20:00) Ckmb (Isoenzyme) Profile (12/11/17 20:00) Drug Screen, Random Urine (12/11/17 20:56) CKMB (12/11/17 20:10) CKMB% (12/11/17 20:10) Sodium Chlorid 0.9% 500 Ml Inj (Ns 500 M (12/11/17 21:45) Hydromorphone Pf Inj (Dilaudid Pf Inj) (12/11/17 22:30) Iohexol 350 Inj (Omnipaque 350 Inj) (12/11/17 21:59) Labs Laboratory Tests Test 12/11/17 20:10 12/11/17 21:00 White Blood Count 9.7 TH/MM3 Red Blood Count 5.13 MIL/MM3 Hemoglobin 16.8 GM/DL Hematocrit 48.8 % Mean Corpuscular Volume 95.0 FL Mean Corpuscular Hemoglobin 32.7 PG Mean Corpuscular Hemoglobin Concent 34.4 % Red Cell Distribution Width 13.1 % Platelet Count 191 TH/MM3 Mean Platelet Volume 8.5 FL Neutrophils (%) (Auto) 70.7 % Lymphocytes (%) (Auto) 23.7 % Monocytes (%) (Auto) 4.8 % Eosinophils (%) (Auto) 0.5 % Basophils (%) (Auto) 0.3 % Neutrophils # (Auto) 6.8 TH/MM3 Lymphocytes # (Auto) 2.3 TH/MM3 Monocytes # (Auto) 0.5 TH/MM3 Eosinophils # (Auto) 0.1 TH/MM3 Basophils # (Auto) 0.0 TH/MM3 CBC Comment DIFF FINAL Differential Comment Prothrombin Time 10.6 SEC Prothromb Time International Ratio 1.0 RATIO Activated Partial Thromboplast Time 21.2 SEC Blood Urea Nitrogen 14 MG/DL Creatinine 0.99 MG/DL Random Glucose 144 MG/DL Total Protein 8.5 GM/DL Albumin 4.7 GM/DL Calcium Level 10.2 MG/DL Alkaline Phosphatase 112 U/L Aspartate Amino Transf (AST/SGOT) 39 U/L Alanine Aminotransferase (ALT/SGPT) 27 U/L Total Bilirubin 0.6 MG/DL Sodium Level 143 MEQ/L Potassium Level 4.7 MEQ/L Chloride Level 106 MEQ/L Carbon Dioxide Level 23.9 MEQ/L Anion Gap 13 MEQ/L Estimat Glomerular Filtration Rate 97 ML/MIN Lactic Acid Level 2.7 mmol/L Total Creatine Kinase 695 U/L Creatine Kinase MB 6.9 NG/ML Creatine Kinase MB % 1.0 % Troponin I LESS THAN 0.02 NG/ML Lipase 153 U/L Urine Color YELLOW Urine Turbidity CLEAR Urine pH 5.5 Urine Specific [place] 1.035 Urine Protein 30 mg/dL Urine Glucose (UA) NEG mg/dL Urine Ketones 40 mg/dL Urine Occult Blood NEG Urine Nitrite NEG Urine Bilirubin NEG Urine Urobilinogen 2.0 MG/DL Urine Leukocyte Esterase NEG Urine RBC 1 /hpf Urine WBC 1 /hpf Urine Hyaline Casts 1 /lpf Urine Mucus MANY /lpf Microscopic Urinalysis Comment CULT NOT INDICATED Urine Opiates Screen POS Urine Barbiturates Screen NEG Urine Amphetamines Screen NEG Urine Benzodiazepines Screen NEG Urine Cocaine Screen NEG Urine Cannabinoids Screen POS MDM Medical Decision Making Medical Screen Exam Complete: Yes Emergency Medical Condition: Yes Differential Diagnosis pancreatitis versus nephroureterolithiasis versus acute on chronic back pain versus less likely AAA versus other Narrative Course 47-year-old male presents to the ED for evaluation of 10/10 chest pain that radiates to the back. Sudden onset today. Patient denies fever, chills, nausea , vomiting or palpitations, shortness of breath, abdominal pain. He endorses history of pancreatitis and says the symptoms are similar. On arrival patient is writhing in pain, biting the sheet. History gathering is limited secondary to his pain. Patient's afebrile, pulse 143, BP 179/119 on presentation. Physical exam reveals tenderness to palpation in the midline lower thoracic spine but is otherwise unremarkable. IV is established. Patient was administered 1 mg Dilaudid, 4 mg Zofran and 1 L normal saline IV EKG rate 93, sinus arrhythmia with short AR interval. Indeterminate axis. No acute ST changes. Reviewed by Dr. Butt. CXR: No acute cardiopulmonary disease per radiology read. CBC is unremarkable. CMP without concerning abnormalities. Lipase 153. Lactic 2.7, slightly hemolyzed. No culture indicated of the UA. Toxicology positive for cannabinoids and opiates. CT abdomen and pelvis reveals stable degenerative changes of the patient's spine and chronic vascular calcifications but is otherwise unremarkable. On recheck the patient is sitting up on the side of the bed. He explains to me that his pain is actually located in the lower back and secondary to chronic back issues including bulging disks in the lumbar area. There is 5/5 strength of all muscle groups of the lower extremities. Patient denies saddle anesthesia or urinary/fecal incontinence. This is chronic back pain. Patient' s provided a short course of steroids and a few doses of Camden. He is instructed to follow-up with the neurologist. He is stable and discharged home. Diagnosis Primary Impression: Chronic back pain Qualified Codes: M54.41 - Lumbago with sciatica, right side; G89.29 - Other chronic pain Referrals: Lev Schwab MD Neurosurgeon Patient Instructions: Chronic Back Pain (ED), General Instructions Additional Instructions: A mixture of rest and activity as best for back pain. Take steroids as prescribed. Take [place] as prescribed. Do not drive while taking narcotics. Follow-up with the neurosurgeon as discussed. Return to the ED for any urgent or emergent medical condition. Med/Other Pt SpecificInfo: Prescription(s) given Scripts Hydrocodone-Acetaminophen ([place]) 5 Mg-325 Mg Tab 1 TAB PO Q6H Y for PAIN, #12 TAB 0 Refills Prov: Kehinde Butt MD 12/11/17 Prednisone (Prednisone) 20 Mg Tab 20 MG PO BID for 5 Days, #10 TAB 0 Refills Prov: Kehinde Butt MD 12/11/17 Disposition: 01 DISCHARGE HOME Condition: Stable Bina Knight Dec 11, 2017 21:25
[2017-12-11] MEDS ORDERED: SODIUM CHLORID 0.9% 500 ML INJ 500 ML IV ONE (21:45)
[2017-12-11 21:47] LABS: ALT (GPT) 27 U/L (12-78)
[2017-12-11 21:49] LABS: ALKALINE PHOSPHATASE 112 U/L (45-117); TOTAL BILIRUBIN ADULT 0.6 MG/DL (0.2-1.0); TOTAL PROTEIN 8.5 GM/DL (6.4-8.2)
[2017-12-11 21:56] LABS: ALBUMIN 4.7 GM/DL (3.4-5.0); AST (GOT) 39 U/L (15-37); BICARBONATE 23.9 MEQ/L (21.0-32.0); BLOOD UREA NITROGEN 14 MG/DL (7-18); CALCIUM 10.2 MG/DL (8.5-10.1); CHLORIDE 106 MEQ/L (98-107); CREATININE 0.99 MG/DL (0.60-1.30); GLOMERULAR FILTRATION RATE 97 ML/MIN (>89); GLUCOSE,RANDOM 144 MG/DL (74-106); SODIUM (NA) 143 MEQ/L (136-145)
--- NOTE | 2017-12-11 21:58 | RADRPT ---
EXAM DATE/TIME: 12/11/2017 21:36 [place] COMPARISON: CT ABDOMEN & PELVIS W CONTRAST, October 08, 2017, 1:07. INDICATIONS : Right side abdominal pain. IV CONTRAST: 100 cc Omnipaque 350 (iohexol) IV ORAL CONTRAST: No oral contrast ingested. RADIATION DOSE: 6.64 CTDIvol (mGy) MEDICAL HISTORY : Hypertension. Pancreatitis. Diabetes mellitus type 1.Hiatal and inguinal hernias. SURGICAL HISTORY : Appendectomy. ENCOUNTER: Initial ACUITY: 1 day PAIN SCALE: 5/10 LOCATION: Right abdomen TECHNIQUE: Volumetric scanning of the abdomen and pelvis was performed. Using automated exposure control and ad justment of the mA and/or kV according to patient size, radiation dose was kept as low as reasonably achievable to obtain optimal diagnostic quality images. DICOM format image data is available electro nically for review and comparison. FINDINGS: CT Abdomen: The liver, spleen, pancreas, kidneys, adrenals are unremarkable. There is slight prominen ce at the insertion site of the falciform ligament on the liver of no clinical significance. There is no evidence for any appreciable pathological adenopathy, free fluid, or bowel obstruction. Chronic vascular calcifications are present involving the aorta, iliac arteries without any significant steno sis or aneurysmal dilatations for technique. CT pelvis: There is no evidence for mass, abscess formation, or any significant adenopathy within the pelvis. There is scoliosis convexity towards the right with degenerative changes of the lower lumbos acral spine worse at L4-5 to a significant degree. CONCLUSION: Stable degenerative changes of the patient's spine and chronic vascular calcification s. KBipin Jennings MD on December 11, 2017 at 21:52 Board Certified Radiologist. This report was verified electronically.
[2017-12-11] MEDS ORDERED: IOHEXOL 350 MG/ML 10 ML VIAL (for RAD DIAG) IVCONTRAST ONE (21:59)
[2017-12-11 22:00] LABS: BILIRUBIN, URINE NEG (NEG); BLOOD, URINE NEG (NEG); GLUCOSE,URINE NEG (NEG); HYALINE CAST, URINE 1 /lpf (RARE); KETONE, URINE 40 mg/dL (NEG); MUCUS URINE MANY /lpf (OCC); NITRITE,URINE NEG (NEG); PH, URINE 5.5 (5.0-8.5); URINE COLOR YELLOW (YELLW/STRAW); URINE LEUKOCYTE ESTERASE NEG (NEG)
[2017-12-11] MEDS ORDERED: PRED20 PO (22:31)
[2017-12-11] MEDS ORDERED: NORC5TAB PO (22:31)
[2017-12-11 23:58] VITALS: BP 180/83; PULSE 74; RESP 18
--- NOTE | 2017-12-12 14:44 | EKG ---
Date Performed: 12/11/2017 Time Performed: 19:48:30 PTAGE: 47 years EKG: Sinus rhythm WITH MARKED SINUS ARRHYTHMIA WITH SHORT IN INTERVAL INDETERMINATE AXIS BORDERLINE ECG PREVIOUS TRACING : 10/08/2017 11.19 Since the prior tracing, there has been no significant romero DOCTOR: Josue Jasso Interpretating Date/Time 12/12/2017 14:37:14
== END 2017-12-12 | disposition home or self-care (01) ==
LOC: NEPC 19:42
DX: M54.9 Dorsalgia, unspecified (principal); G89.29 Other chronic pain; I49.9 Cardiac arrhythmia, unspecified; J45.909 Unspecified asthma, uncomplicated; F41.9 Anxiety disorder, unspecified; E11.9 Type 2 diabetes mellitus without complications; K21.9 Gastro-esophageal reflux disease without esophagitis; I10 Essential (primary) hypertension; Z87.19 Personal history of other diseases of the digestive system
CPT/HCPCS: 71045; 74177; 80053; 80307; 81001; 82550; 82552; 83605; 83690; 84484; 85025; 85610; 85730; 93005; 96361; 96374; 96375; 96376; 99285; J1170; J2405; J7030; J7040; Q9967

== ENCOUNTER 2018-06-24 08:09 | Observation (INO) ==
[2018-06-24] MEDS ORDERED: Morphine Inj 4 MG/ML Vial IV.PUSH ONE (08:35)
[2018-06-24 09:04] LABS: Baso % (Auto) 0.5 % (0.0-2.0); Eos # (Auto) 0.2 th/mm3 (0.0-0.4); Eos % (Auto) 3.5 % (0.0-4.0); Hematocrit 46.1 % (39.0-51.0); Hemoglobin 15.4 gm/dL (13.0-17.0); Lymph # (Auto) 1.6 th/mm3 (1.0-4.8); Lymph % (Auto) 33.9 % (9.0-44.0); Mean Corpuscular HGB Conc 33.4 % (32.0-36.0); Mean Corpuscular Hemoglobin 32.7 pg (27.0-34.0); Mean Corpuscular Volume 97.9 fL (80.0-100.0); Mean Platelet Volume 8.3 fL (7.0-11.0); Mono # (Auto) 0.4 th/mm3 (0.0-0.9); Mono % (Auto) 8.3 % (0.0-8.0); Neut # (Auto) 2.6 th/mm3 (1.8-7.7); Neut % (Auto) 53.8 % (16.0-70.0); Platelet Count 166 th/mm3 (150-450); Red Blood Count 4.71 mil/mm3 (4.50-5.90); Red Cell Distribution Width 13.6 % (11.6-17.2); White Blood Count 4.8 th/mm3 (4.0-11.0)
--- NOTE | 2018-06-24 09:05 | ED ---
HPI General Chief complaint: Chest Pain Stated complaint: chest pain Time Seen by Provider: 06/24/18 08:19 Source: patient Mode of arrival: ambulatory Limitations: no limitations History of Present Illness HPI narrative: Patient is a 48 year old male who comes in complaining of chest pain and upper abdominal pain. He says he has had the chest pain on and off for the past week, but today it woke him up from sleep and made him nervous. He also complains of pain to his epigastric area, which she says feels like his pancreas. He does have history of pancreatitis in the past. He says he took an oxycodone at home to help with his pain, but it did not help. He denies any shortness of breath. He denies nausea or vomiting. He denies fever chills. Severity is mild to moderate. Related Data Home Medications Medication Instructions Recorded Confirmed insulin glargine [Lantus U-100 8 unit SUB-Q DAILY 06/24/18 06/24/18 Insulin] oxycodone [Roxicodone] 10 mg PO Q4-6H PRN 06/24/18 06/24/18 travoprost 1 drp OPHTHALMIC (EYE) QPM 06/24/18 06/24/18 Allergies Allergy/AdvReac Type Severity Reaction Status Date / Time metoclopramide Allergy Severe Anaphylaxis Verified 06/24/18 08:28 penicillin G Allergy Severe Anaphylaxis Verified 06/24/18 08:28 promethazine Allergy Severe Anaphylaxis Verified 06/24/18 08:28 Review of Systems ROS: all other systems reviewed are negative Constitutional Denies chills and Denies fever(s) Eyes Denies blurry vision ENT Denies dizziness Cardiovascular Reports chest pain and Denies edema Respiratory Denies cough and Denies dyspnea Gastrointestinal Reports abdominal pain, Denies nausea and Denies vomiting Musculoskeletal Denies myalgias and Denies arthralgias Integumentary/Breasts Denies lesions and Denies rash Neurologic Denies frequent falls, Denies focal weakness and Denies numbness [facility] Medical History Medical History Chronic back pain (Acute) Diabetes (Acute) Glaucoma (Acute) HTN (hypertension) (Acute) Surgical History Surgical History H/O hernia repair (Acute) History of appendectomy (Acute) History of back surgery (Acute) Social History Social History Substance History: Active Abuse Second Hand Smoke Exposure: Yes Smoking Status: Current every day smoker Tobacco Type: Cigarettes and Cigars How Often Do You Have a Drink Containing Alcohol: Never Recent Travel in [facility] within the Last 8 Weeks: No Recent Out of Country Travel within the Last 8 Weeks: No Substance Abuse Detail Marijuana: Substance Use Status: Active Route Used Substance Abuse: Inhalation Reason for Use: Get High Immunization History Tetanus Immunization: >5 Years Hx Influenza Vaccine This Season: No Exam Narrative Exam Narrative: GENERAL: Awake and alert, in no acute distress. SKIN: Focused skin assessment warm/dry. No wounds or signs of infection. HEAD: Atraumatic. Normocephalic. EYES: Pupils equal and round. No scleral icterus. EOMI. ENT: Mucous membranes pink and moist. NECK: Trachea midline. No JVD. CARDIOVASCULAR: Regular rate and rhythm. No murmur appreciated. RESPIRATORY: No accessory muscle use. Clear to auscultation. Breath sounds equal bilaterally. GASTROINTESTINAL: Abdomen soft, nondistended. Tender to palpation of the epigastric area. No rebound or guarding. MUSCULOSKELETAL: No obvious deformities. No clubbing. No cyanosis. No edema. NEUROLOGICAL: Awake and alert. No obvious cranial nerve deficits. Motor grossly within normal limits. Normal speech. PSYCHIATRIC: Appropriate mood and affect; insight and judgment normal. Course Initial Documented Vital Signs Temperature 97.7 F 06/24/18 08:12 Pulse Rate 103 H 06/24/18 08:12 Respiratory Rate 20 06/24/18 08:12 Blood Pressure 165/93 H 06/24/18 08:12 Pulse Oximetry 98 06/24/18 08:12 Last Documented Vital Signs Temperature 97.7 F 06/24/18 08:12 Pulse Rate 89 06/24/18 08:25 Respiratory Rate 15 06/24/18 08:25 Blood Pressure 162/92 H 06/24/18 08:25 Pulse Oximetry 99 06/24/18 08:49 Medical Decision Making MDM Narrative Medical decision making narrative: Patient is a 48-year-old male who comes in complaining wall pain. Exam shows tenderness to the epigastric area. IV established, labs sent. Patient connected to the monitor and storage bin tender. Troponin is negative. Lipase is elevated to 595. Chest x-ray shows no acute abnormalities. Patient given pain medicine and aspirin. He will be placed in observation for management of his pancreatitis as well as chest pain. Medical Screen Exam Complete: Yes Emergency Medical Condition: Yes Medical Records Medical records reviewed: Yes I reviewed the patient's medical records. Lab Data Lab results reviewed: Yes I reviewed the patient's lab results. Result diagrams: 06/24/18 08:45 06/24/18 08:45 Lab Results 06/24/18 06/24/18 06/24/18 Range/Units 08:45 08:45 08:45 WBC 4.8 (4.0-11.0) th/mm3 RBC 4.71 (4.50-5.90) mil/mm3 Hgb 15.4 (13.0-17.0) gm/dL Hct 46.1 (39.0-51.0) % MCV 97.9 (80.0-100.0) fL MCH 32.7 (27.0-34.0) pg MCHC 33.4 (32.0-36.0) % RDW 13.6 (11.6-17.2) % Plt Count 166 (150-450) th/mm3 MPV 8.3 (7.0-11.0) fL Neut % (Auto) 53.8 (16.0-70.0) % Lymph % (Auto) 33.9 (9.0-44.0) % Mora % (Auto) 8.3 H (0.0-8.0) % Eos % (Auto) 3.5 (0.0-4.0) % Baso % (Auto) 0.5 (0.0-2.0) % Neut # (Auto) 2.6 (1.8-7.7) th/mm3 Lymph # (Auto) 1.6 (1.0-4.8) th/mm3 Mora # (Auto) 0.4 (0.0-0.9) th/mm3 Eos # (Auto) 0.2 (0.0-0.4) th/mm3 Baso # (Auto) 0.0 (0.0-0.2) th/mm3 WBC Differential . Differential Comment Auto diff final PT (9.8-11.6) sec INR Ratio APTT (24.3-30.1) sec Sodium 142 (136-145) meq/L Potassium 4.5 (3.5-5.1) meq/L Chloride 108 H (98-107) meq/L Carbon Dioxide 25.3 (21.0-32.0) meq/L Anion Gap 9 (5-15) meq/L BUN 13 (7-18) mg/dL Creatinine 0.96 (0.60-1.30) mg/dL Estimated GFR Greater than 89 (>89) mL/min Random Glucose 121 H (74-106) mg/dL Calcium 8.7 (8.5-10.1) mg/dL Total Bilirubin 0.4 (0.2-1.0) mg/dL AST 29 (15-37) U/L ALT 25 (12-78) U/L Alkaline Phosphatase 101 (45-117) U/L Total Creatine Kinase (39-308) U/L CK-MB (CK-2) (0.5-3.6) ng/mL CK-MB (CK-2) % (0.0-4.0) % Troponin I Less than 0.02 L (0.02-0.05) ng/mL B-Natriuretic Peptide 4 (0-100) pg/mL Total Protein 7.6 (6.4-8.2) g/dL Albumin 4.0 (3.4-5.0) g/dL Lipase 565 H (73-393) U/L Serum Alcohol Less than 3 (0-5) mg/dL 06/24/18 06/24/18 Range/Units 08:45 08:45 WBC (4.0-11.0) th/mm3 RBC (4.50-5.90) mil/mm3 Hgb (13.0-17.0) gm/dL Hct (39.0-51.0) % MCV (80.0-100.0) fL MCH (27.0-34.0) pg MCHC (32.0-36.0) % RDW (11.6-17.2) % Plt Count (150-450) th/mm3 MPV (7.0-11.0) fL Neut % (Auto) (16.0-70.0) % Lymph % (Auto) (9.0-44.0) % Mora % (Auto) (0.0-8.0) % Eos % (Auto) (0.0-4.0) % Baso % (Auto) (0.0-2.0) % Neut # (Auto) (1.8-7.7) th/mm3 Lymph # (Auto) (1.0-4.8) th/mm3 Mora # (Auto) (0.0-0.9) th/mm3 Eos # (Auto) (0.0-0.4) th/mm3 Baso # (Auto) (0.0-0.2) th/mm3 WBC Differential Differential Comment PT 10.7 (9.8-11.6) sec INR 1.1 Ratio APTT 23.3 L (24.3-30.1) sec Sodium (136-145) meq/L Potassium (3.5-5.1) meq/L Chloride (98-107) meq/L Carbon Dioxide (21.0-32.0) meq/L Anion Gap (5-15) meq/L BUN (7-18) mg/dL Creatinine (0.60-1.30) mg/dL Estimated GFR (>89) mL/min Random Glucose (74-106) mg/dL Calcium (8.5-10.1) mg/dL Total Bilirubin (0.2-1.0) mg/dL AST (15-37) U/L ALT (12-78) U/L Alkaline Phosphatase (45-117) U/L Total Creatine Kinase 326 H (39-308) U/L CK-MB (CK-2) 3.1 (0.5-3.6) ng/mL CK-MB (CK-2) % 1.0 (0.0-4.0) % Troponin I (0.02-0.05) ng/mL B-Natriuretic Peptide (0-100) pg/mL Total Protein (6.4-8.2) g/dL Albumin (3.4-5.0) g/dL Lipase (73-393) U/L Serum Alcohol (0-5) mg/dL Imaging Data Radiologist's impression: Chest X-Ray 06/24/18 08:35 CONCLUSION: No acute cardiopulmonary disease. ECG Data EKG Prior to Arrival: No Attestation: I personally reviewed and interpreted this ECG as follows: Interpretation: ECG shows normal sinus rhythm at a rate of 80, incomplete right bundle branch block, no ST elevation or depression Discharge Plan Discharge Disposition Patient Disposition: 30 Still Patient Discharge Condition Condition: Stable Discharge Details Diagnosis: Chest pain, Acute pancreatitis Physicians Team ED Provider: Sweta Mendoza Primary Care Provider: Primary Care Kathrine Diaz Attending Provider: Nicholas Marquez Discharge Interventions Interventions: Vital Signs Last Done: 06/24/18 08:25 Status ED Status: Admitted Observation Patient
[2018-06-24 09:17] LABS: Activated Partial Thrombo Time 23.3 sec (24.3-30.1); INR 1.1 Ratio; Prothrombin Time 10.7 sec (9.8-11.6)
--- NOTE | 2018-06-24 09:17 | XR ---
EXAM DATE: 06/24/2018 8:59 AM EDT AGE/SEX: 48 years / Male INDICATIONS: Chest pain. Patient complains of chest, back pain, and leg cramps. CLINICAL DATA: This is the patient's initial encounter. Patient reports that signs and symptoms have been present for 1 week and indicates a pain score of 7/10. MEDICAL/SURGICAL HISTORY: Pancreatitis. None. [place] [facility] [place]. . FINDINGS: The cardiac silhouette is normal in transverse diameter. The lungs are free of acute parenchymal opac ity. No pulmonary nodules or pleural effusions are identified. CONCLUSION: No acute cardiopulmonary disease. Electronically signed by: Kashmir De La Fuente MD 06/24/2018 9:16 AM EDT
[2018-06-24 09:28] LABS: Alanine Aminotransferase 25 U/L (12-78)
[2018-06-24 09:31] LABS: Anion Gap 9 meq/L (5-15); Aspartate Aminotransferase 29 U/L (15-37); Blood Urea Nitrogen 13 mg/dL (7-18); Calcium 8.7 mg/dL (8.5-10.1); Carbon Dioxide 25.3 meq/L (21.0-32.0); Chloride 108 meq/L (98-107); Glomerular Filtration Rate Greater Than 89 mL/min (>89); Glucose,Random 121 mg/dL (74-106); Lipase 565 U/L (73-393); Potassium 4.5 meq/L (3.5-5.1); Sodium 142 meq/L (136-145)
[2018-06-24 09:32] LABS: Alkaline Phosphatase 101 U/L (45-117); Total Protein 7.6 g/dL (6.4-8.2)
[2018-06-24] MEDS ORDERED: HYDROmorphone PF Inj 0.5 MG/0.5 ML Syringe IV.PUSH STA (09:45)
[2018-06-24 10:03] LABS: Creatine Kinase MB 3.1 ng/mL (0.5-3.6)
[2018-06-24] MEDS ORDERED: Sod Chloride 0.9% Inj 1,000 ML IV.SIG SCH (11:00)
[2018-06-24] MEDS ORDERED: Acetaminophen 500 MG Tablet PO PRN (11:23)
[2018-06-24] MEDS ORDERED: Dextrose 50% in Water 50 ML Vial IV.PUSH PRN (11:28)
--- NOTE | 2018-06-24 11:45 | P.HPIM ---
History of Present Illness Service: [facility] Primary Care Physician: No Primary Care Physician History of Present Illness: This is a 48-year-old -[place] male with past medical history significant for external jugular vein injury, hypertension, glaucoma, chronic back pain, and type 2 diabetes. He is presenting to the hospital today due to acute chest pain. Reports that the chest pain occurred during the night and woke him up from sleep. It felt like a stabbing pain in his chest. He said he has had a similar episode earlier this week where he developed chest pain during the day and it brought him down to the knee. He is unaware of the chest pain worsens with activity but still feels it also when he is resting. His chest pain did cause him some severe shortness of breath during the night. The last week he has noticed that his left arm is been weak and numb and was worse so yesterday. It is felt like his heart is racing earlier this week and occasionally whenever he feels his chest pains. Last week he has been lightheaded off and on as well. He describes the chest pain as a sharp stabbing pain with each beat when it is occurring. Currently the sharp pain in his chest is better but his arm still does feel numb. Of note he reports that about a month ago "while at [facility] was told he had fluid on his heart". He said he was treated with an IV medicine that remove the fluid. Will obtain an echo of the heart for further evaluation. - Diagnosis (1) Chest pain (2) Acute pancreatitis (3) HTN (hypertension) (4) Type 2 diabetes mellitus Review of Systems Constitutional: Reports body ache(s), Reports fatigue, Reports headache(s), Reports lack of energy, Reports weakness, Denies excessive sweating, Denies fever(s) Eyes: Denies blind spots, Denies blurry vision, Denies bulging eyes, Denies change in vision, Denies double vision, Denies discharge, Denies dry eyes, Denies floaters, Denies irritation, Denies itchy eyes, Denies loss of vision, Denies pain, Denies requires corrective lenses, Denies sensitivity to light, Denies other Ears, Nose, Mouth, and Throat: Reports dizziness, Denies abnormal hearing, Denies bleeding gums, Denies change in voice, Denies hoarseness, Denies nasal discharge, Denies neck pain, Denies sore throat, Denies throat swelling Cardiovascular: Reports chest pain, Reports chest pain at rest, Reports irregular heart rhythm, Reports lightheadedness, Reports radiating jaw, neck or arm pain, Reports rapid, pounding, or irregular heartbeat, Reports shortness of breath, Denies chest pain with activity, Denies fainting, Denies shortness of breath with activity, Denies shortness of breath when lying down, Denies slow heart rate Respiratory: Reports shortness of breath, Denies chest congestion, Denies cough , Denies coughing up blood, Denies shortness of breath with activity, Denies wheezing Gastrointestinal: Reports abdominal pain, Reports nausea, Reports vomiting, Denies constipation, Denies pain with swallowing Musculoskeletal: Reports back pain (chronic), Reports joint pain, Reports radiating pain into limb (left arm), Denies numbness Neurologic: Denies abnormal hearing, Denies abnormal speech, Denies abnormal walking, Denies behavioral changes Psychiatric: Reports anxiety, Reports depression PMFSH - History History Provided By: Patient - Medical History Medical History: Medical History (Last Updated 06/24/18 @ 11:42 by Nicholas Marquez MD) Angina at rest External jugular vein injury Chronic back pain Diabetes Glaucoma HTN (hypertension) - Surgical History Surgical History: Surgical History (Last Reviewed 06/24/18 @ 09:03 by Sweta Mendoza MD) H/O hernia repair History of appendectomy History of back surgery - Family History Family History: Family History (Last Updated 06/24/18 @ 11:43 by Nicholas Marquez MD) Father Dialysis complication CVA (cerebral vascular accident) Type 2 diabetes mellitus Mother CHF (congestive heart failure) - Tobacco History Second Hand Smoke Exposure: Yes Tobacco Use In Past 30 Days: Yes Smoking Status: Current every day smoker (a pack a day) Tobacco Type: Cigarettes, Cigars - Alcohol History How Often Do You Have a Drink Containing Alcohol: Never - Substance Use History Substance History: Active Abuse - Substance Use Type Marijuana Status: Active Route Used: Inhalation Reason for Use: Get High - Travel History History of Recent Travel: No Recent Travel in the [place] Within the Last 8 Weeks: No Recent Travel Out of the Country Within the Last 8 Weeks: No - Immunization History Tetanus Immunization: >5 Years Hx Influenza Vaccine This Season: No Medications and Allergies Active Medications: Active Medications Acetaminophen (Tylenol) 500 mg PO Q4H PRN PRN Reason: HEADACHE Dextrose (D50w Vial) 50 ml IV.PUSH UNSCH PRN PRN Reason: PER HYPOGLYCEMIA PROTOCOL Glucagon (Glucagon Inj) 1 mg OTHER PRN PRN PRN Reason: for Hypoglycemia Protocol Heparin Sodium (Porcine) (Heparin Inj) 5,000 units SQ Q8H MANFRED Sodium Chloride (Ns Inj) 1,000 mls @ 0 mls/hr IV.SIG BOLUS MANFRED Sodium Chloride (Ns Inj) 1,000 mls @ 100 mls/hr IV.CONT .Q10H MANFRED Insulin Aspart (Novolog Insulin Correctional Sugar Inj) 0 unit SQ ACHS MANFRED; Protocol Morphine Sulfate (Morphine Inj) 2 mg IV.PUSH Q4H PRN PRN Reason: BREAKTHROUGH PAIN Oxycodone HCl (Roxicodone) 10 mg PO Q4-6H PRN PRN Reason: Pain Pantoprazole Sodium (Protonix) 40 mg PO DAILY MANFRED Sodium Chloride (Ns Flush) 2 ml IV.FLUSH UNSCH PRN PRN Reason: FLUSH AFTER USING IV ACCESS Sodium Chloride (Ns Flush) 2 ml IV.FLUSH PRN PRN PRN Reason: FLUSH AFTER USING IV ACCESS Sodium Chloride (Ns Flush) 2 ml IV.FLUSH BID MANFRED Temazepam (Restoril) 15 mg PO HS PRN PRN Reason: INSOMNIA Allergies Allergy/AdvReac Type Severity Reaction Status Date / Time metoclopramide Allergy Severe Anaphylaxis Verified 06/24/18 08:28 penicillin G Allergy Severe Anaphylaxis Verified 06/24/18 08:28 promethazine Allergy Severe Anaphylaxis Verified 06/24/18 08:28 Home Medications Medication Instructions Recorded Confirmed Type insulin glargine [Lantus U-100 8 unit SUB-Q DAILY 06/24/18 06/24/18 History Insulin] oxycodone [Roxicodone] 10 mg PO Q4-6H PRN 06/24/18 06/24/18 History travoprost 1 drp OPHTHALMIC (EYE) QPM 06/24/18 06/24/18 History Exam Vital signs: Vital Signs 06/24/18 08:12 06/24/18 08:25 06/24/18 08:49 Temperature 97.7 F Pulse Rate 103 H 89 Respiratory Rate 20 15 Blood Pressure 165/93 H 162/92 H Pulse Oximetry 98 99 99 Intake & Output 06/23/18 06/24/18 06/24/18 18:59 06:59 18:59 Weight 72.575 kg - Routine HEENT Exam Head: Present: normocephalic, atraumatic Eye: Present: EOMI, PERRL ENT: Present: mucous membranes moist, oropharynx clear, dentition normal, nares patent. Absent: septal deviation - Routine Neck Exam Present: supple, full ROM. Absent: JVD, carotid bruit - Routine Chest/Breast/Axilla Exam Chest wall: Absent: tenderness, pacemaker, chest tube Axillae: Absent: lymphadenopathy, tenderness - Routine Respiratory Exam Absent: accessory muscle use - Routine Cardiovascular Exam Present: RRR - Routine Abdominal Exam Present: soft, normoactive bowel sounds, tenderness (throughout worse epigastric ) - Routine Extremities Exam Present: full ROM, pulses intact, normal capillary refill. Absent: cyanosis, edema, calf tenderness, Kelli's sign - Routine Skin Exam Present: intact, dry, warm - Routine Neurological Exam Present: alert, oriented X3, CN II-XII intact Results - Labs CBC & Chem 7: 06/24/18 08:45 06/24/18 08:45 Labs: Short CBC 06/24/18 Range/Units 08:45 WBC 4.8 (4.0-11.0) th/mm3 Hgb 15.4 (13.0-17.0) gm/dL Hct 46.1 (39.0-51.0) % Plt Count 166 (150-450) th/mm3 BMP 06/24/18 08:45 Sodium 142 Potassium 4.5 Chloride 108 H Carbon Dioxide 25.3 BUN 13 Creatinine 0.96 Calcium 8.7 Cardiac Enzymes 06/24/18 06/24/18 Range/Units 08:45 08:45 Total Creatine Kinase 326 H (39-308) U/L CK-MB (CK-2) 3.1 (0.5-3.6) ng/mL Troponin I Less than 0.02 L (0.02-0.05) ng/mL Liver Function 06/24/18 Range/Units 08:45 Total Bilirubin 0.4 (0.2-1.0) mg/dL AST 29 (15-37) U/L ALT 25 (12-78) U/L Alkaline Phosphatase 101 (45-117) U/L Albumin 4.0 (3.4-5.0) g/dL - Imaging Impressions Chest X-Ray 06/24/18 08:35 CONCLUSION: No acute cardiopulmonary disease. Caprini VTE Risk Assessment Caprini VTE Risk Assessment: Moderate/High Risk (score >= 2) (On heparin) Caprini Risk Assessment Model: Point Value = 1 Point Value = 2 Point Value = 3 Point Value = 5 Age 41-60 Minor surgery BMI > 25 kg/m2 Swollen legs Varicose veins or History of unexplained or recurrent spontaneous Oral contraceptives or hormone replacement Sepsis (< 1 month) Serious lung disease, including pneumonia (< 1 month) Abnormal pulmonary function Acute myocardial infarction Congestive heart failure (< 1 month) History of inflammatory bowel disease Medical patient at bed rest Age 61-74 Arthroscopic surgery Major open surgery (> 45 min) Laparoscopic surgery (> 45 min) Malignancy Confined to bed (> 72 hours) Immobilizing plaster cast Central venous access Age >= 75 History of VTE Family history of VTE Factor V Leiden Prothrombin [id number] Lupus anticoagulant Anticardiolipin antibodies Elevated serum homocysteine Heparin-induced thrombocytopenia Other congenital or acquired thrombophilia Stroke (< 1 month) Elective arthroplasty Hip, pelvis, or leg fracture Acute spinal cord injury (< 1 month) Prophylaxis Regimen: Total Risk Factor Score Risk Level Prophylaxis Regimen 0-1 Low Early ambulation 2 Moderate Order ONE of the following: *Sequential Compression Device (SCD) *Heparin 5000 units SQ BID 3-4 Higher Order ONE of the following medications: *Heparin 5000 units SQ TID *Enoxaparin/Lovenox 40 mg SQ daily (WT < 150 kg, CrCl > 30 mL/min) *Enoxaparin/Lovenox 30 mg SQ daily (WT < 150 kg, CrCl > 10-29 mL/min) *Enoxaparin/Lovenox 30 mg SQ BID (WT < 150 kg, CrCl > 30 mL/min) AND/OR *Sequential Compression Device (SCD) 5 or more Highest Order ONE of the following medications: *Heparin 5000 units SQ TID (Preferred with Epidurals) *Enoxaparin/Lovenox 40 mg SQ daily (WT < 150 kg, CrCl > 30 mL/min) *Enoxaparin/Lovenox 30 mg SQ daily (WT < 150 kg, CrCl > 10-29 mL/min) *Enoxaparin/Lovenox 30 mg SQ BID (WT < 150 kg, CrCl > 30 mL/min) AND *Sequential Compression Device (SCD) Assessment and Plan - Assessment (1) Chest pain Code(s): R07.9 - Chest pain, unspecified Status: Acute (2) Acute pancreatitis Code(s): K85.90 - Acute pancreatitis without necrosis or infection, unspecified Status: Acute (3) HTN (hypertension) Code(s): I10 - Essential (primary) hypertension Status: Chronic (4) Type 2 diabetes mellitus Code(s): E11.9 - Type 2 diabetes mellitus without complications Status: Chronic - Plan This is a 48-year-old -[place] male with past medical history significant for external jugular vein injury, hypertension, glaucoma, chronic back pain, and type 2 diabetes. He is presenting to the hospital today due to acute chest pain. Found to have elevated Lipase and reports acute on chronic pancreatitis. ACS rule out -Admit to Observation -Trending troponins and CKMB -Trending EKGs -Pain control with Morphine -Continue Oxycodone -Limited 2D echocardiogram to be performed to reported history of pericardial effusion about a month ago, and stating that symptoms are similar: results pending Acute Pancreatitis -Concerns for acute pancreatitis with elevated lipase in the 500s. -Placed on n.p.o. except for medication will progress to fatty free diet as tolerated -Pain control as above -IV fluids at 100 mL's Type 2 Diabetes -Glucose monitoring per protocol -Place on sliding scale HTN -No home medications -Place on Clonidine per protocol DVT prophylaxis with Heparin Code Status: Full code Discharge Planning: Anticipate discharge home (1) Chest pain Qualifiers: Chest pain type: unspecified Qualified Code(s): R07.9 - Chest pain, unspecified (2) Acute pancreatitis Qualifiers: Pancreatitis type: unspecified pancreatitis type Acute pancreatitis complication: unspecified Qualified Code(s): K85.90 - Acute pancreatitis without necrosis or infection, unspecified (3) HTN (hypertension) Qualifiers: Hypertension type: essential hypertension Qualified Code(s): I10 - Essential (primary) hypertension (4) Type 2 diabetes mellitus Qualifiers: Diabetes mellitus 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
[2018-06-24] MEDS: Insulin NovoLOG Aspart Correctional Sugar Inj SQ SCH ×3 (14:53→21:54)
[2018-06-24] MEDS: Sod Chloride 0.9% Inj 1,000 ML IV.CONT SCH (15:48)
[2018-06-24] MEDS: Heparin - SQ 10,000 UNITS/ML Vial SQ SCH ×2 (15:49→21:51)
--- NOTE | 2018-06-24 16:22 | ECG ---
Date Performed: 06/24/2018 Time Performed: 08:22:14 PTAGE: 48 years EKG: Sinus rhythm INDETERMINATE AXIS INCOMPLETE RIGHT BUNDLE BRANCH BLOCK Since the previous tracing, no significant c hange noted ABNORMAL ECG PREVIOUS TRACING : 12/11/2017 19.48 DOCTOR: Dariusz Garcia Interpretating Date/Time 06/24/2018 16:18:33
[2018-06-24 18:18] LABS: Amphetamine Screen,Urine Neg (Neg); Barbiturate Screen,Urine Neg (Neg); Cannabinoid Screen,Urine Pos (Neg); Cocaine Screen,Urine Neg (Neg)
[2018-06-24 18:21] LABS: Opiate Screen,Urine Pos (Neg)
[2018-06-24 19:23] LABS: Creatine Kinase 410 U/L (39-308)
[2018-06-24 19:35] LABS: CKMB Percent 1.3 % (0.0-4.0); Creatine Kinase MB 5.2 ng/mL (0.5-3.6)
[2018-06-24] MEDS: Morphine Inj 4 MG/ML Vial IV.PUSH PRN (20:09)
[2018-06-24] MEDS ORDERED: Temazepam 15 MG Capsule PO PRN (21:00)
[2018-06-25] MEDS: Sod Chloride 0.9% Inj 1,000 ML IV.CONT SCH ×3 (03:30→13:29)
[2018-06-25] MEDS: Morphine Inj 4 MG/ML Vial IV.PUSH PRN (05:23)
[2018-06-25] MEDS: Heparin - SQ 10,000 UNITS/ML Vial SQ SCH ×2 (07:15→13:48)
[2018-06-25 08:57] LABS: Baso % (Auto) 0.3 % (0.0-2.0); Eos % (Auto) 0.3 % (0.0-4.0); Hematocrit 42.4 % (39.0-51.0); Hemoglobin 14.3 gm/dL (13.0-17.0); Lymph % (Auto) 18.9 % (9.0-44.0); Mean Corpuscular HGB Conc 33.7 % (32.0-36.0); Mean Corpuscular Hemoglobin 32.8 pg (27.0-34.0); Mean Corpuscular Volume 97.2 fL (80.0-100.0); Mean Platelet Volume 8.9 fL (7.0-11.0); Mono # (Auto) 0.2 th/mm3 (0.0-0.9); Mono % (Auto) 3.5 % (0.0-8.0); Neut # (Auto) 4.2 th/mm3 (1.8-7.7); Platelet Count 150 th/mm3 (150-450); Red Blood Count 4.37 mil/mm3 (4.50-5.90); Red Cell Distribution Width 13.5 % (11.6-17.2); White Blood Count 5.4 th/mm3 (4.0-11.0)
[2018-06-25] MEDS: Insulin NovoLOG Aspart Correctional Sugar Inj SQ SCH ×2 (09:00→12:15)
[2018-06-25 09:11] LABS: Anion Gap 14 meq/L (5-15); Blood Urea Nitrogen 15 mg/dL (7-18); Calcium 8.5 mg/dL (8.5-10.1); Carbon Dioxide 21.7 meq/L (21.0-32.0); Chloride 105 meq/L (98-107); Glomerular Filtration Rate Greater Than 89 mL/min (>89); Glucose,Random 82 mg/dL (74-106); Potassium 3.8 meq/L (3.5-5.1); Sodium 141 meq/L (136-145)
[2018-06-25 09:16] LABS: Creatine Kinase 392 U/L (39-308)
[2018-06-25 09:28] LABS: Lipase 113 U/L (73-393)
[2018-06-25 09:31] LABS: CKMB Percent 1.1 % (0.0-4.0); Creatine Kinase MB 4.5 ng/mL (0.5-3.6)
[2018-06-25 09:39] LABS: Amylase 118 U/L (25-115)
[2018-06-25 11:00] VITALS: O2SAT 99
--- NOTE | 2018-06-25 12:00 | P.PNIM ---
Subjective Interval history: This is a 48-year-old -Swedish male with past medical history significant for external jugular vein injury, hypertension, glaucoma, chronic back pain, and type 2 diabetes. He is presenting to the hospital today due to acute chest pain. Reports that the chest pain occurred during the night and woke him up from sleep. It felt like a stabbing pain in his chest. He said he has had a similar episode earlier this week where he developed chest pain during the day and it brought him down to the knee. He is unaware of the chest pain worsens with activity but still feels it also when he is resting. His chest pain did cause him some severe shortness of breath during the night. The last week he has noticed that his left arm is been weak and numb and was worse so yesterday. It is felt like his heart is racing earlier this week and occasionally whenever he feels his chest pains. Last week he has been lightheaded off and on as well. He describes the chest pain as a sharp stabbing pain with each beat when it is occurring. Currently the sharp pain in his chest is better but his arm still does feel numb. Of note he reports that about a month ago "while at [facility] was told he had fluid on his heart". He said he was treated with an IV medicine that remove the fluid. Will obtain an echo of the heart for further evaluation. 06-25 WILL GET REPEAT ECHO CONSULT CARDIOLOGY AKILA RN AND PATIENT AND CARDIOLOGY HOPEFULLY ECHO IS STABLE AND CAN BE DISCHARGED TO HOME TODAY-- ECHO IS STABLE DC TO HOME Consult case management for help with discharge Physical Exam Vital signs: Vital Signs 06/24/18 14:13 06/24/18 14:49 06/24/18 16:00 Temperature 98.3 F Pulse Rate 50 L 80 Respiratory Rate 18 14 20 Blood Pressure 151/77 H 172/85 H Pulse Oximetry 100 06/24/18 20:00 06/25/18 00:00 06/25/18 04:00 Temperature 99.7 F H 98.1 F 98.5 F Pulse Rate 91 H 73 74 Respiratory Rate 23 19 20 Blood Pressure 137/80 172/83 H 133/68 Pulse Oximetry 99 99 96 06/25/18 07:32 06/25/18 08:01 06/25/18 10:58 Temperature 97.6 F 97.8 F Pulse Rate 82 57 L 62 Respiratory Rate 16 16 Blood Pressure 105/84 119/69 Pulse Oximetry 96 99 Intake & Output 06/24/18 06/25/18 06/25/18 18:59 06:59 18:59 Intake Total 235 / 235 765 / 765 Output Total 650 / 650 350 / 350 Balance -415 / -415 415 / 415 Weight 67.5 kg 68.3 kg Intake: IV 235 / 235 765 / 765 NS Inj 1,000 ML @ 100 mls/hr IV 235 / 235 765 / 765 .CONT .Q10H MANFRED Rx#:[id number] Output: Urine 650 / 650 350 / 350 Other: Weight On Admission 67.5 kg Narrative: GENERAL: Awake alert and oriented 3 talkative and cooperative-- appears to be in no acute distress SKIN: Warm and dry. HEAD: Atraumatic. Normocephalic. EYES: Pupils equal and round. No scleral icterus. No injection or drainage. EOMI ENT: No nasal bleeding or discharge. Mucous membranes pink and moist. Tongue is midline NECK: Trachea midline. No JVD. Supple CARDIOVASCULAR: Regular rate and rhythm. S1-S2 no S3 or S4 RESPIRATORY: No accessory muscle use. Clear to auscultation. Breath sounds equal bilaterally. GASTROINTESTINAL: Abdomen soft, non-tender, nondistended. Hepatic and splenic margins not palpable. MUSCULOSKELETAL: Extremities without clubbing, cyanosis, or edema. No obvious deformities. NEUROLOGICAL: Awake and alert. No obvious cranial nerve deficits. Motor grossly within normal limits. Five out of 5 muscle strength in the arms and legs. Normal speech. PSYCHIATRIC: Appropriate mood and affect; insight and judgment normal. Results - Labs CBC & Chem 7: 06/25/18 07:45 06/25/18 07:45 Laboratory Results - last 24 hr 06/24/18 06/24/18 06/24/18 16:45 18:30 18:32 WBC RBC Hgb Hct MCV MCH MCHC RDW Plt Count MPV Neut % (Auto) Lymph % (Auto) [place] % (Auto) Eos % (Auto) Baso % (Auto) Neut # (Auto) Lymph # (Auto) [place] # (Auto) Eos # (Auto) Baso # (Auto) WBC Differential Differential Comment Sodium Potassium Chloride Carbon Dioxide Anion Gap BUN Creatinine Estimated GFR POC Glucose 82 Random Glucose Calcium Total Creatine Kinase 410 H CK-MB (CK-2) 5.2 H CK-MB (CK-2) % 1.3 Troponin I Less than 0.02 L Amylase Lipase Urine Opiates Screen Pos H Ur Barbiturates Screen Neg Ur Amphetamines Screen Neg U Benzodiazepines Scrn Neg Urine Cocaine Screen Neg U Cannabinoids Screen Pos H 06/24/18 06/25/18 06/25/18 20:48 07:45 07:45 WBC 5.4 RBC 4.37 L Hgb 14.3 Hct 42.4 MCV 97.2 MCH 32.8 MCHC 33.7 RDW 13.5 Plt Count 150 MPV 8.9 Neut % (Auto) 77.0 H Lymph % (Auto) 18.9 [place] % (Auto) 3.5 Eos % (Auto) 0.3 Baso % (Auto) 0.3 Neut # (Auto) 4.2 Lymph # (Auto) 1.0 [place] # (Auto) 0.2 Eos # (Auto) 0.0 Baso # (Auto) 0.0 WBC Differential . Differential Comment Auto diff final Sodium 141 Potassium 3.8 Chloride 105 Carbon Dioxide 21.7 Anion Gap 14 BUN 15 Creatinine 0.73 Estimated GFR Greater than 89 POC Glucose 73 Random Glucose 82 Calcium 8.5 Total Creatine Kinase 392 H CK-MB (CK-2) 4.5 H CK-MB (CK-2) % 1.1 Troponin I Less than 0.02 L Amylase Lipase Urine Opiates Screen Ur Barbiturates Screen Ur Amphetamines Screen U Benzodiazepines Scrn Urine Cocaine Screen U Cannabinoids Screen 06/25/18 06/25/18 07:45 09:20 WBC RBC Hgb Hct MCV MCH MCHC RDW Plt Count MPV Neut % (Auto) Lymph % (Auto) [place] % (Auto) Eos % (Auto) Baso % (Auto) Neut # (Auto) Lymph # (Auto) [place] # (Auto) Eos # (Auto) Baso # (Auto) WBC Differential Differential Comment Sodium Potassium Chloride Carbon Dioxide Anion Gap BUN Creatinine Estimated GFR POC Glucose 73 Random Glucose Calcium Total Creatine Kinase CK-MB (CK-2) CK-MB (CK-2) % Troponin I Amylase 118 H Lipase 113 Urine Opiates Screen Ur Barbiturates Screen Ur Amphetamines Screen U Benzodiazepines Scrn Urine Cocaine Screen U Cannabinoids Screen - Imaging ITS Impressions Chest X-Ray 06/24/18 08:35 CONCLUSION: No acute cardiopulmonary disease. - Procedures NONE Assessment and Plan - Assessment (1) Chest pain Code(s): R07.9 - Chest pain, unspecified Status: Chronic (2) Acute pancreatitis Code(s): K85.90 - Acute pancreatitis without necrosis or infection, unspecified Status: Chronic (3) HTN (hypertension) Code(s): I10 - Essential (primary) hypertension Status: Chronic (4) Type 2 diabetes mellitus Code(s): E11.9 - Type 2 diabetes mellitus without complications Status: Chronic - Plan This is a 48-year-old -Swedish male with past medical history significant for external jugular vein injury, hypertension, glaucoma, chronic back pain, and type 2 diabetes. He is presenting to the hospital today due to acute chest pain. Found to have elevated Lipase and reports acute on chronic pancreatitis. ACS rule out -Admit to Observation -Trending troponins and CKMB -Trending EKGs -Pain control with Morphine -Continue Oxycodone -Limited 2D echocardiogram to be performed to reported history of pericardial effusion about a month ago, and stating that symptoms are similar: results pending Consult cardiology hopefully will be cleared later today Hopefully discharge to home later today ECHO IS STABLE DC TO HOME TODAY Acute Pancreatitis -Concerns for acute pancreatitis with elevated lipase in the 500s. -Placed on n.p.o. except for medication will progress to fatty free diet as tolerated -Pain control as above -IV fluids at 100 mL's Diabetic cardiac diet Type 2 Diabetes -Glucose monitoring per protocol -Place on sliding scale HTN -No home medications -Place on Clonidine per protocol DVT prophylaxis with Heparin Hopefully will be discharged later today Code Status: Full code Discussed Condition With: Discussed with RN and patient and case management Discharge Planning: Discharge to home later today (1) Chest pain Qualifiers: Chest pain type: unspecified Qualified Code(s): R07.9 - Chest pain, unspecified (2) Acute pancreatitis Qualifiers: Pancreatitis type: unspecified pancreatitis type Acute pancreatitis complication: unspecified Qualified Code(s): K85.90 - Acute pancreatitis without necrosis or infection, unspecified (3) HTN (hypertension) Qualifiers: Hypertension type: essential hypertension Qualified Code(s): I10 - Essential (primary) hypertension (4) Type 2 diabetes mellitus Qualifiers: 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
--- NOTE | 2018-06-25 12:13 | P.DS ---
Date of admission: 06/24/18 10:54 Primary care physician: No Primary Care Physician Attending physician on discharge: Kade Beaulieu Anticipated date of discharge: 06/25/18 Brief History from admission: This is a 48-year-old -[place]aur[place] male with past medical history significant for external jugular vein injury, hypertension, glaucoma, chronic back pain, and type 2 diabetes. He is presenting to the hospital today due to acute chest pain. Reports that the chest pain occurred during the night and woke him up from sleep. It felt like a stabbing pain in his chest. He said he has had a similar episode earlier this week where he developed chest pain during the day and it brought him down to the knee. He is unaware of the chest pain worsens with activity but still feels it also when he is resting. His chest pain did cause him some severe shortness of breath during the night. The last week he has noticed that his left arm is been weak and numb and was worse so yesterday. It is felt like his heart is racing earlier this week and occasionally whenever he feels his chest pains. Last week he has been lightheaded off and on as well. He describes the chest pain as a sharp stabbing pain with each beat when it is occurring. Currently the sharp pain in his chest is better but his arm still does feel numb. Of note he reports that about a month ago "while at [facility] was told he had fluid on his heart". He said he was treated with an IV medicine that remove the fluid. Will obtain an echo of the heart for further evaluation. DS: Diagnosis - Discharge Diagnosis (1) Chest pain Status: Chronic (2) Acute pancreatitis Status: Chronic (3) HTN (hypertension) Status: Chronic (4) Type 2 diabetes mellitus Status: Chronic DS: Medications - Discharge Medications Prescriptions: cyclobenzaprine 5 mg PO Q8H PRN #30 tab PRN Reason: Muscle Spasm insulin aspart U-100 [Novolog U-100 Insulin aspart] 0 unit SUB-Q ACHS #4 vial insulin glargine [Lantus U-100 Insulin] 8 unit SUB-Q DAILY #2 vial nicotine 1 patch TRANSDERMAL DAILY #30 ea oxycodone [Roxicodone] 10 mg PO Q4-6H PRN #12 tab PRN Reason: Pain pantoprazole 40 mg PO DAILY #30 tab travoprost 1 drp OPHTHALMIC (EYE) QPM #10 ml DS: Summary Hospital Course: This is a 48-year-old -[place]aur[place] male with past medical history significant for external jugular vein injury, hypertension, glaucoma, chronic back pain, and type 2 diabetes. He is presenting to the hospital today due to acute chest pain. Reports that the chest pain occurred during the night and woke him up from sleep. It felt like a stabbing pain in his chest. He said he has had a similar episode earlier this week where he developed chest pain during the day and it brought him down to the knee. He is unaware of the chest pain worsens with activity but still feels it also when he is resting. His chest pain did cause him some severe shortness of breath during the night. The last week he has noticed that his left arm is been weak and numb and was worse so yesterday. It is felt like his heart is racing earlier this week and occasionally whenever he feels his chest pains. Last week he has been lightheaded off and on as well. He describes the chest pain as a sharp stabbing pain with each beat when it is occurring. Currently the sharp pain in his chest is better but his arm still does feel numb. Of note he reports that about a month ago "while at [facility] was told he had fluid on his heart". He said he was treated with an IV medicine that remove the fluid. Will obtain an echo of the heart for further evaluation. 06-25 WILL GET REPEAT ECHO CONSULT CARDIOLOGY AKILA RN AND PATIENT AND CARDIOLOGY HOPEFULLY ECHO IS STABLE AND CAN BE DISCHARGED TO HOME TODAY Consult case management for help with discharge E-FORCSE Prescription Drug Monitoring Database has been queried and verified prior to prescribing the controlled substance. Acute pain exception. This patient has normal, predicted, physiological, and time limited response to an adverse mechanical stimulus associated with surgery, trauma, or acute illness as described in my notes. There is a lack of alternative treatment options other than to include the prescribed narcotic treatment for this condition. visualized recent rx in system will give limited supply DC TO HOME TODAY ECHO IS STABLE CLEARED BY CARDIOLOGY - Time Spent with Patient Total time spent providing and/or coordinating discharge services: Greater than 30 minutes - Quality: VTE Deep Vein Thrombosis/Pulmonary Embolism Present on Admission: No Exam Vital signs: Vital Signs 06/24/18 14:13 06/24/18 14:49 06/24/18 16:00 Temperature 98.3 F Pulse Rate 50 L 80 Respiratory Rate 18 14 20 Blood Pressure 151/77 H 172/85 H Pulse Oximetry 100 06/24/18 20:00 06/25/18 00:00 06/25/18 04:00 Temperature 99.7 F H 98.1 F 98.5 F Pulse Rate 91 H 73 74 Respiratory Rate 23 19 20 Blood Pressure 137/80 172/83 H 133/68 Pulse Oximetry 99 99 96 06/25/18 07:32 06/25/18 08:01 06/25/18 10:58 Temperature 97.6 F 97.8 F Pulse Rate 82 57 L 62 Respiratory Rate 16 16 Blood Pressure 105/84 119/69 Pulse Oximetry 96 99 Intake & Output 06/24/18 06/25/18 06/25/18 18:59 06:59 18:59 Intake Total 235 / 235 765 / 765 Output Total 650 / 650 350 / 350 Balance -415 / -415 415 / 415 Weight 67.5 kg 68.3 kg Intake: IV 235 / 235 765 / 765 NS Inj 1,000 ML @ 100 mls/hr IV 235 / 235 765 / 765 .CONT .Q10H MANFRED Rx#:[id number] Output: Urine 650 / 650 350 / 350 Other: Weight On Admission 67.5 kg Narrative: GENERAL: Awake alert and oriented 3 talkative and cooperative-- appears to be in no acute distress SKIN: Warm and dry. HEAD: Atraumatic. Normocephalic. EYES: Pupils equal and round. No scleral icterus. No injection or drainage. EOMI ENT: No nasal bleeding or discharge. Mucous membranes pink and moist. Tongue is midline NECK: Trachea midline. No JVD. Supple CARDIOVASCULAR: Regular rate and rhythm. S1-S2 no S3 or S4 RESPIRATORY: No accessory muscle use. Clear to auscultation. Breath sounds equal bilaterally. GASTROINTESTINAL: Abdomen soft, non-tender, nondistended. Hepatic and splenic margins not palpable. MUSCULOSKELETAL: Extremities without clubbing, cyanosis, or edema. No obvious deformities. NEUROLOGICAL: Awake and alert. No obvious cranial nerve deficits. Motor grossly within normal limits. Five out of 5 muscle strength in the arms and legs. Normal speech. PSYCHIATRIC: Appropriate mood and affect; insight and judgment normal. Results Procedures completed during hospitalization: NONE Completed studies during hospitalization: Chest X-Ray 06/24/18 08:35 CONCLUSION: No acute cardiopulmonary disease. Labs on day of discharge: Labs from last 24 hours 06/25/18 06/25/18 06/25/18 11:55 09:20 07:45 WBC RBC Hgb Hct MCV MCH MCHC RDW Plt Count MPV Neut % (Auto) Lymph % (Auto) [place] % (Auto) Eos % (Auto) Baso % (Auto) Neut # (Auto) Lymph # (Auto) [place] # (Auto) Eos # (Auto) Baso # (Auto) WBC Differential Differential Comment Sodium Potassium Chloride Carbon Dioxide Anion Gap BUN Creatinine Estimated GFR POC Glucose 64 L 73 Random Glucose Calcium Total Creatine Kinase CK-MB (CK-2) CK-MB (CK-2) % Troponin I Amylase 118 H Lipase 113 Urine Opiates Screen Ur Barbiturates Screen Ur Amphetamines Screen U Benzodiazepines Scrn Urine Cocaine Screen U Cannabinoids Screen 06/25/18 06/25/18 06/24/18 07:45 07:45 20:48 WBC 5.4 RBC 4.37 L Hgb 14.3 Hct 42.4 MCV 97.2 MCH 32.8 MCHC 33.7 RDW 13.5 Plt Count 150 MPV 8.9 Neut % (Auto) 77.0 H Lymph % (Auto) 18.9 [place] % (Auto) 3.5 Eos % (Auto) 0.3 Baso % (Auto) 0.3 Neut # (Auto) 4.2 Lymph # (Auto) 1.0 [place] # (Auto) 0.2 Eos # (Auto) 0.0 Baso # (Auto) 0.0 WBC Differential . Differential Comment Auto diff final Sodium 141 Potassium 3.8 Chloride 105 Carbon Dioxide 21.7 Anion Gap 14 BUN 15 Creatinine 0.73 Estimated GFR Greater than 89 POC Glucose 73 Random Glucose 82 Calcium 8.5 Total Creatine Kinase 392 H CK-MB (CK-2) 4.5 H CK-MB (CK-2) % 1.1 Troponin I Less than 0.02 L Amylase Lipase Urine Opiates Screen Ur Barbiturates Screen Ur Amphetamines Screen U Benzodiazepines Scrn Urine Cocaine Screen U Cannabinoids Screen 06/24/18 06/24/18 06/24/18 18:32 18:30 16:45 WBC RBC Hgb Hct MCV MCH MCHC RDW Plt Count MPV Neut % (Auto) Lymph % (Auto) [place] % (Auto) Eos % (Auto) Baso % (Auto) Neut # (Auto) Lymph # (Auto) [place] # (Auto) Eos # (Auto) Baso # (Auto) WBC Differential Differential Comment Sodium Potassium Chloride Carbon Dioxide Anion Gap BUN Creatinine Estimated GFR POC Glucose 82 Random Glucose Calcium Total Creatine Kinase 410 H CK-MB (CK-2) 5.2 H CK-MB (CK-2) % 1.3 Troponin I Less than 0.02 L Amylase Lipase Urine Opiates Screen Pos H Ur Barbiturates Screen Neg Ur Amphetamines Screen Neg U Benzodiazepines Scrn Neg Urine Cocaine Screen Neg U Cannabinoids Screen Pos H - Impressions ITS Impressions Chest X-Ray 06/24/18 08:35 CONCLUSION: No acute cardiopulmonary disease. Discharge Plan - Discharge Disposition Patient Disposition: 01 Discharge Home - Discharge Condition Condition: Stable - Discharge Order Discharge Orders: Discharge Order (Routine); Ordered 06/25/18 Ordered By: Kade Beaulieu - Discharge Details Anticipated Discharge Date: 06/25/18 Discharge Comment: dc to home - Physicians Team Primary Care Provider: Primary Care Emily,Kathrine Attending Provider: Kade Beaulieu Other Providers: Carlos Alberto Man MD
--- NOTE | 2018-06-25 13:17 | MB ---
cc: Carlos Alberto Man MD DATE: 06/25/2018 REASON FOR CONSULTATION: Chest pain. HISTORY OF PRESENT ILLNESS: Luis Carlos Shelby is a 48-year-old male with multiple medical problems. He has a history of substance abuse with cocaine, opiates, and marijuana. He had a positive tox screen for marijuana in 09/2017. He has diabetes. He has had problems with nausea and vomiting and questionable pancreatitis. He has had panic attacks and anxiety. He has scoliosis and back problems. He has got atherosclerosis manifesting as calcification of his aorta and iliac vessels on previous abdominal CT scans. He says he was hospitalized up at [facility] for about a week. He has been having chest pain for the past 2 weeks. The pain in the chest and upper abdomen he describes as a sharp pain that he feels every time his heart beats. He puts his hands above his head and that seems to help it. It is better with a deep breath. There is no change sitting up or lying down. It is not exertional. It comes and goes. He says he had fluid around his heart and was given some IV medication, which took the fluid out. We do not have records yet. He smokes a pack a day, has never quit. His social circumstances were not ideal. Currently living with an ex-, but he does not have particularly stable home life and has the substance abuse as described above. ALLERGIES: INCLUDE PENICILLIN, PHENERGAN, REGLAN. SOCIAL HISTORY: Notable for the drug use and smoking. PAST SURGICAL HISTORY: Includes appendectomy, hernia repair, jugular venous repair. FAMILY HISTORY: Negative for heart disease. PHYSICAL EXAMINATION: GENERAL: Well-developed, well-nourished male in no acute distress. VITAL SIGNS: Charted. HEENT: Unremarkable. NECK: No JVD. No bruits. CHEST: Clear to auscultation. No use of accessory muscles. CARDIAC: Normal S1, S2. Regular rate and rhythm. No murmurs, gallops, rubs appreciated. ABDOMEN: Soft, nontender. No masses or organomegaly. EXTREMITIES: No clubbing, cyanosis or edema. LABORATORY DATA: EKG shows sinus with no acute ST-T wave changes. Chest x-ray is negative. Troponins negative x2. Creatinine is 0.73, hematocrit IS 42.4. IMPRESSION: Very atypical chest pain. It does not sound like angina. It is sharp pain that he can feel with each heartbeat. He does not have typical pericarditis symptoms. The symptoms are not improved sitting up. There is no worsening of the symptoms with a deep breath. If anything, they are improved with a deep breath. He had a 1-week stay apparently at [facility] and we do not have any of those records. A 2-D echocardiogram Doppler is pending. IMPRESSION: I agree with getting the 2-D echocardiogram Doppler. I will work on trying to get his [facility] records. This does not sound like angina. It actually sounds noncardiac in origin at this point. Further therapy to be determined. MD TANYA Pickering/ashley , 11:41 AM , 11:49 AM
[2018-06-25 15:19] VITALS: BP 136/88; PULSE 88; RESP 18; TEMP 99
--- NOTE | 2018-06-25 16:16 | ECHRPT ---
Indication: CARDIOMYOPATHY CONCLUSIONS The left ventricular systolic function is normal with an estimated ejection fraction in the range of 60-65%. Normal left ventricular size. Wall thickness is normal. No regional wall motion abnormalities are present. The pulmonary valve is not well visualized. BP: / HR: Rhythm: Sinus Technical Quality:Good FINDINGS LEFT VENTRICLE The left ventricular systolic function is normal with an estimated ejection fraction in the range of 60-65%. Normal left ventricular size. Wall thickness is normal. No regional wall motion abnormalities are present. RIGHT VENTRICLE Normal right ventricular size and systolic function. LEFT ATRIUM The left atrial size is normal. RIGHT ATRIUM The right atrial size is normal. ATRIAL SEPTUM Normal atrial septal thickness without atrial level shunting by limited color doppler interrogation. AORTA The aortic root and proximal ascending aorta are normal in size on limited imaging. MITRAL VALVE Structurally normal mitral valve. No mitral valve stenosis or regurgitation. AORTIC VALVE Trileaflet aortic valve. No aortic valve stenosis or regurgitation. TRICUSPID VALVE Structurally normal tricuspid valve. No tricuspid valve stenosis or regurgitation. PULMONARY VALVE The pulmonary valve is not well visualized. VESSELS The inferior vena cava is normal in size. PERICARDIUM No pericardial effusion. Carlos Alberto Man MD (Electronically Signed) Final Date:25 June 2018 16:15
--- NOTE | 2018-06-25 21:35 | ECG ---
Date Performed: 06/24/2018 Time Performed: 17:38:48 PTAGE: 48 years EKG: Sinus rhythm WITH MARKED SINUS ARRHYTHMIA INDETERMINATE AXIS S1-S2-S3 PATTERN, CONSISTENT WITH PULMONARY DISEASE, RVH, OR NORMAL VARIANT INCOMPLETE RIGHT BUNDLE BRANCH BLOCK ABNORMAL ECG INTERPRETATION BASED ON A D EFAULT AGE OF 38 YEARS NO PREVIOUS TRACING DOCTOR: Saurabh Unger Interpretating Date/Time 06/25/2018 21:33:12
== END 2018-06-25 17:16 | disposition home or self-care (01) ==
LOC: NEDA 08:09 → NEPC 08:09 → NEPFCDU 14:48
PROVIDERS: ADMIT Hospitalist; ATTEND Hospitalist